=== PATIENT | female | born 1940 | race Caucasian/White ===

== ENCOUNTER 2019-12-06 15:18 | Outpatient (CLI) | payer MEDICARE, SELFPAY ==
--- NOTE | ~2019-12-06 | MM_ITS ---
EXAMINATION: MM screening mammo BI HISTORY: Screening mammogram TECHNIQUE: Craniocaudal and mediolateral oblique images were obtained. CAD analysis was submitted and interpreted. COMPARISON: No prior mammogram is available for comparison at this institution. BREAST PARENCHYMAL COMPOSITION: There are scattered areas of fibroglandular density. FINDINGS: Bilateral breast implants are noted. There is no evidence of suspicious mass, calcification , or architectural distortion to suggest malignancy in either breast. There has been no suspicious in terval change. IMPRESSION: 1. No mammographic evidence of malignancy. 2. Recommend routine screening mammography in one year. BI-RADS Category 1: Negative Reviewed, dictated and finalized at location A.
--- NOTE | ~2019-12-06 | CT_ITS ---
EXAMINATION: CT lung screening EXAM DATE: 12/06/2019 16:30 INDICATION: Z87.891 Personal history of nicotine dependence TECHNIQUE: Spiral low dose CT of the chest without contrast. Axial, coronal and sagittal images were reviewed. The dose-length product (DLP) for this examination was 61.00 mGy-cm. The exposure was ta ilored according to patient size (auto mA exposure control), and iterative reconstruction (ASIR) was used as additional dose reduction technique. Comparison is made to prior examination from 03/25/1979. FINDINGS: There is severe emphysema. Mild bronchiectasis. Severe hyperinflation. Right lower lobe ca lcified granulomas. Small amount of basilar intralobular septal thickening and honeycombing. There is a 3.3 cm abdominal aortic aneurysm. Tracheobronchial tree is patent. There is no mediastinal, hil ar or axillary lymphadenopathy. There are no pleural or pericardial effusions. There is no pneumo thorax. Heart normal in size. There is mild coronary arterial calcification, arterial sclerosis. Upper abdomen is unremarkable. There is moderate thoracic spondylosis without osteoblastic or osteo lytic lesions identified. IMPRESSION: Lung-RADS category 1, negative (<1%chance of malignancy); recommend continued LDCT screen ing in 1 year. > Reviewed, dictated and finalized at location A. IMPRESSION: Lung-RADS category 1, negative (<1%chance of malignancy); recommend continued LDCT screening in 1 year. >
== END 2019-12-06 15:19 | disposition home or self-care (01) ==
PROVIDERS: PCP Internal Medicine; Visit Provider Internal Medicine
DX: Z12.31 Encounter for screening mammogram for malignant neoplasm of breast (principal); Z12.2 Encounter for screening for malignant neoplasm of respiratory organs; Z87.891 Personal history of nicotine dependence
CPT/HCPCS: 77067; G0297

== ENCOUNTER 2019-12-09 12:25 | Outpatient (CLI) | payer MEDICARE, SELFPAY ==
--- NOTE | ~2019-12-09 | XR_ITS ---
EXAMINATION: XR_CERV2-3V_CR EXAM DATE: 12/09/2019 13:07 INDICATION: No known recent injury provided at this time. Pain of the neck. Cervicalgia. TECHNIQUE: Frontal, lateral, swimmers' projections of the cervical spine. There are no prior studies for comparison. There is no prior study for comparison. FINDINGS: There is 3 mm anterolisthesis C3 on C4. There is moderate disc disease C4-5, moderate to se ericka disc disease at C5-6 and probably C6-7. There is at least moderate cervical arthropathy. The odo ntoid process is intact. The lateral masses of C1 line up with C2. Prevertebral soft tissue and pre- dens space are within normal limits. IMPRESSION: Moderate to severe cervical spondylosis. Reviewed, dictated and finalized at location A.
== END 2019-12-09 12:26 | disposition home or self-care (01) ==
PROVIDERS: PCP Internal Medicine; Visit Provider Nurse Practitioner
DX: M54.2 Cervicalgia (principal); M47.812 Spondylosis without myelopathy or radiculopathy, cervical region
CPT/HCPCS: 72040

== ENCOUNTER 2020-04-10 13:29 | Inpatient (IN) | payer MEDICARE, SELFPAY ==
[2020-04-10] VITALS (34 sets, daily range): BP systolic 110–136; BP diastolic 62–98; PULSE 77–108; RESP 16–31; TEMP 36.7–36.8; O2SAT 89–99; BMI 14.6
--- NOTE | ~2020-04-10 | XR_ITS ---
EXAMINATION: XR chest 2V DATE: 04/13/2020 12:37 INDICATION: Pneumonia TECHNIQUE: frontal and lateral views of the chest were obtained. COMPARISON: Chest radiograph dated 04/10/[address] dated 12/06/2019 . FINDINGS: Hyperexpansion of lungs consistent with emphysema better appreciated on prior CT. Small bilateral ple ural effusions. Reticular and airspace opacities in the bilateral lower lung zones, left greater than right. Cluster of calcified nodules in the right lower lung zone consistent with old granulomatous d isease. No pneumothorax. The cardiomediastinal silhouette is within normal limits for AP technique. T horacic kyphosis with severe spondylosis. Chronic T5 compression fracture. A few old left-sided rib f ractures. Peripherally calcified bilateral breast implants. IMPRESSION: 1. Opacities in bilateral lower lung zones which could represent mild pulmonary edema, pneumonia or a telectasis. 2. Small bilateral pleural effusions. Reviewed, dictated and finalized at location A. NICAL BUYER IMPRESSION: 1. Opacities in bilateral lower lung zones which could represent mild pulmonary edema, pneumonia or atelectasis. 2. Small bilateral pleural effusions.
--- NOTE | ~2020-04-10 | XR_ITS ---
EXAMINATION: XR pelvis 1-2V EXAM DATE: 04/10/2020 15:09 INDICATION: Initial encounter following injury, with pain of the pelvis. TECHNIQUE: Pelvis frontal projection(s) obtained and reviewed. Comparison is made to prior examinatio n from 07/19/2017. FINDINGS: There are old left rami fractures. Sacral arcuate lines are poorly visualized due to overl maximino bowel gas. There are no acute pelvic fractures or dislocations identified. There is no subcutan eous gas. The soft tissue is unremarkable. There are no radiopaque foreign bodies. There is moder ate symmetric bilateral hip primary osteoarthritis. Advanced lower lumbar spondylosis. IMPRESSION: 1. Pelvis x-ray exam without acute osseous findings. 2. Moderate symmetric hip osteoarthritis. Reviewed, dictated and finalized at location B. RAL ENGINEERING TEACHER
--- NOTE | ~2020-04-10 | XR_ITS ---
EXAMINATION: XR foot RT min 3V DATE: 04/10/2020 15:10 INDICATION: Right foot injury and pain. TECHNIQUE: 4 views of right foot were obtained. COMPARISON: None. FINDINGS: There is moderate hallux valgus. No acute fracture. Head of second proximal phalanx is defo rmed, which may be from old injury. There is mild osteoarthritis of first metatarsophalangeal joints and many of the interphalangeal joints and talonavicular joint. IMPRESSION: 1. Mild polyarticular osteoarthritis. 2. Moderate hallux valgus. Reviewed, dictated and finalized at location A. N DESIGNER
--- NOTE | ~2020-04-10 | XR_ITS ---
XR chest 1V portable DATE: 04/10/2020 16:12 INDICATION: Cough TECHNIQUE: Portable upright AP view on April 10, 2020 at 1612 hours COMPARISON: 12/06/2019 CT lung screening 01/09/2018 2 view chest FINDINGS: There are increased interstitial IMPRESSION: Reviewed, dictated and finalized at location A. KINDERGARTEN TEACHER IMPRESSION:
--- NOTE | 2020-04-10 14:15 | PC.NURSE ---
patient brought to this ED by EMS. see initial notes.
[2020-04-10 16:22] LABS: Hematocrit 42.5 % (37.0-47.0); Immature Granulocyte Absolute 0.01 K/mm3 (0.00-0.031); Immature Granulocyte Percent A 0.3 % (0-0.5); Immature Platelet Fraction Pct 10.1 % (0.9-11.2); Lymphocytes Absolute Auto 0.47 K/mm3 (0.9-3.2); Lymphocytes Percent Auto 15.1 % (18.3-44.2); Mean Corpuscular HGB Conc 32.9 g/dl (32-36); Mean Corpuscular Hemoglobin 31.3 pg (26-34); Mean Corpuscular Volume 95.1 fl (80-100); Monocytes Absolute Auto 0.3 K/mm3 (0.1-0.6); Neutrophils Absolute Auto 2.4 K/mm3 (1.3-6.7); Neutrophils Percent Auto 75.6 % (45.5-73.1); Platelet Count Result 73 k/mm3 (150-375); Red Blood Count 4.47 M/mm3 (4.2-5.4); Red Cell Distribution Width 13.8 % (11.5-14.5); White Blood Count 3.1 K/mm3 (4.5-10.0)
[2020-04-10] MEDS: SODIUM CHLORIDE 0.9% IV 500 ML 999 ML IV CONT ×2 (16:35→18:01)
[2020-04-10 16:48] LABS: Alveolar/Arterial O2 Gradient 54.7 mmHg; Base Excess ABG 2.4 mEq/l (+/-2.0); Carboxyhemoglobin 1.8 % THb (0-2.0); Device ROOM AIR; Fractional Inspired Oxygen 21 %; HCO3 ABG 25.3 mEq/l (22.0-26.0); Methemoglobin ABG 0.3 %THb (0-1.5); Modified Allen's Test Pass; Oxygen Content ABG 17.4 %vol (16.0-22.0); Oxygen Saturation ABG 90.7 % (95.0-100.0); Oxyhemoglobin 87.5 % THb (90.0-100.0); PCO2 ABG 34.2 mmHg (35.0-45.0); PO2 ABG 54.1 mmHg (80.0-100.0); PO2 FiO2 Ratio Arterial Blood 2.58 %; Reduced Hemoglobin 10.4 %THb (0-5.0); Site Drawn RIGHT RADIAL; Total Hemoglobin 14.2 g/dL (12.0-18.0); pH ABG 7.487 (7.350-7.450)
--- NOTE | 2020-04-10 17:17 | PC.NURSE ---
cathed, 15 fr, kelvin care, 100mL, yellow, cloudy/sed [id number]
[2020-04-10 17:30] LABS: Add Urine Microscopic? YES; Appearance Urine Clear (Clear); Bacteria Urine Trace /hpf; Bilirubin Urine Negative (Negative); Blood Urine 1+ (Negative); Color Urine Yellow (Yellow); Glucose Urine UA Negative (Negative); Ketones Urine Trace mg/dL (Negative); Leukocyte Esterase Ur Trace LEU/UL (Negative); Mucus Urine Moderate /lpf; Nitrate Urine Negative (Negative); Protein Urine 1+ mg/dL (Negative); RBC Urine 21-50 /hpf (0-2); Specific Grav Ur 1.026 (1.001-1.035); Squamous Epithelial Cell Urine Many /hpf (Few); WBC Urine 16-20 /hpf
[2020-04-10 17:31] LABS: Anion Gap 5 mmol/L (8-16); Blood Urea Nitrogen 31 mg/dL (7-17); Calcium 8.3 mg/dL (8.4-10.2); Carbon Dioxide 30 mmol/L (22-30); Chloride 103 mmol/L (98-107); Estimated CRCL calculation 43 ml/min; Estimated Glomerular Filt Rate > 60; Glucose 99 mg/dL (65-105); Lactic Acid Reflex 1.1 mmol/L (0.7-2.1); Potassium 3.6 mmol/L (3.4-5.0); Sodium 138 mmol/L (137-145)
--- NOTE | 2020-04-10 18:13 | ED.GENADULT ---
HPI - General Adult General Chief complaint: Fall Stated complaint: slid out of chair 2 days ago, R side/foot pain Time Seen by Provider: 04/10/20 13:30 Source: patient and family Mode of arrival: ambulatory Limitations: no limitations History of Present Illness HPI narrative: Patient is a 80-year-old female who presents to emergency department for evaluation of having slid out of her recliner patient was brought in by family but they are not present on initial evaluation patient is denying any complaints no that she slid out of her chair but denies any pain patient otherwise in the room in no distress on arrival patient notes possible slight cough denies any vomiting diarrhea chest pain shortness of breath Related Data Allergies Allergy/AdvReac Type Severity Reaction Status Date / Time No Known Allergies Allergy Verified 04/10/20 15:09 Review of Systems Review of Systems: All systems reviewed & are unremarkable except as noted in HPI and below PMFSH Past Medical History Medical History (Updated 04/10/20 @ 18:17 by Lefty Whitmore PA-C) COPD (chronic obstructive pulmonary disease) Neck Pain Sciatica of right side Family History Family History Mother Family history of heart disease in male family member before age 55 Social History Social History Smoking packs per day: 1 Smoking cigarettes per day: 20.0 Years smoked: 59 Smoking pack-years: 59.00 Smoking status: Former smoker (refused CT lung screen at previous visit) Alcohol intake: current Exam Narrative: Exam Narrative: GENERAL: Well-appearing, thin, and in no acute distress. HEAD: Normocephalic, atraumatic. EYES: PERRLA and EOMI. ENT: Nares clear, no rhinorrhea or epistaxis. Mucous membranes moist. NECK: Supple. No adenopathy or masses. No carotid bruits or JVD CHEST: Diminished on auscultation. No respiratory distress. No wheezes rales or rhonchi HEART: Regular rate and rhythm. No murmur heard. Normal peripheral pulses. ABDOMEN: Soft, nontender, nondistended EXTREMITIES: Normal range of motion. No edema. SKIN: Warm, dry, no rash. NEURO: No focal deficits. Alert and oriented x3. Cranial nerves II through XII grossly intact PSYCH: Normal mood and affect. Course Course Emergency Course: Patient evaluated the emergency department patient found to have pneumonia will be tested for Covid given antibiotics to protect against aspiration denying any vomiting but will be brought in due to her hypoxemia. Patient agrees to stay in hospital. Patient hemodynamically stable at this time is requiring oxygen for hypoxemia Consultations Consultation #1: Discussed case with hospitalist who has agreed to accept the patient Date: 04/10/20 Time: 18:15 Vital Signs Vital signs: Vital Signs Temperature 98.3 F 04/10/20 13:50 Pulse Rate 85 04/10/20 13:50 Respiratory Rate 16 04/10/20 13:50 Blood Pressure 114/74 04/10/20 13:50 Pulse Oximetry 98 04/10/20 13:50 Temperature 98.3 F 04/10/20 13:50 Pulse Rate 82 04/10/20 16:01 Respiratory Rate 23 H 04/10/20 16:01 Blood Pressure 123/71 04/10/20 16:01 Pulse Oximetry 90 04/10/20 16:01 Medical Decision Making [facility] Narrative Medical decision making narrative: Patient evaluated in the emergency department found to have hypoxemia and pneumonia will be brought into the hospital for this to the hospitalist service hemodynamically stable at this time requiring oxygen by nasal cannula will also be tested for COVID-19 given the pneumonia seen on chest x-ray Vital Signs Vital Signs: Vital Signs Temperature 98.3 F 04/10/20 13:50 Pulse Rate 85 04/10/20 13:50 Respiratory Rate 16 04/10/20 13:50 Blood Pressure 114/74 04/10/20 13:50 Pulse Oximetry 98 04/10/20 13:50 Temperature 98.3 F 04/10/20 13:50 Pulse Rate 82 04/10/20 16:01 Respiratory Rate 23 H
--- NOTE | 2020-04-10 20:00 | PC.NURSE ---
attempted to call report. staff stated that room is not clean. RN will call me back when the room is ready.
--- NOTE | 2020-04-10 20:30 | PC.NURSE ---
called 3rd floor. on hold for several minutes. no RN to phone for report.
--- NOTE | 2020-04-10 20:38 | PC.NURSE ---
attempted to call report to 3rd floor 3 times. no answer.
--- NOTE | 2020-04-10 20:54 | PC.NURSE ---
report given to RN on 3rd floor. patient transferred to 330 via arch support technician and stretcher.
--- NOTE | 2020-04-10 21:41 | ADMGEN ---
This patient, Maxine Head, was admitted to [facility] Room 330-01. Patient/family oriented to hospital policies and general routines including ID bracelet, bed and alarms, visiting hours, pain management, procedures, bathroom and other care routines, personal items, smoking policy, room service/diet, and visiting hours. Information on how to activate the Rapid Response Team has been discussed. Patient/Family are encouraged to report perceived risks to care and to ask questions if they do not understand what they are told or what they should do.
[2020-04-10] MEDS: LACTATED RINGERS 1,000 ML 75 ML IV CONT (21:47)
[2020-04-11] VITALS (7 sets, daily range): BP systolic 125–147; BP diastolic 61–86; PULSE 61–97; RESP 16–20; TEMP 36.3–36.7; O2SAT 90–94; BMI 14.6
[2020-04-11] MEDS: FAMOTIDINE 20 MG/2 ML VIAL IV PUSH ×2 (00:49→08:43)
[2020-04-11 06:41] LABS: Basophils Percent Auto 0.4 % (0.2-1.2); Eosinophils Percent Auto 0.4 % (0-4.4); Hemoglobin 13.1 g/dL (12.0-15.0); Immature Granulocyte Absolute 0.01 K/mm3 (0.00-0.031); Immature Granulocyte Percent A 0.4 % (0-0.5); Immature Platelet Fraction Pct 8.6 % (0.9-11.2); Lymphocytes Absolute Auto 0.52 K/mm3 (0.9-3.2); Lymphocytes Percent Auto 20.2 % (18.3-44.2); Mean Corpuscular HGB Conc 32.8 g/dl (32-36); Mean Corpuscular Hemoglobin 31.2 pg (26-34); Mean Corpuscular Volume 95.2 fl (80-100); Mean Platelet Volume 10.9 fl (7.4-10.4); Monocytes Absolute Auto 0.3 K/mm3 (0.1-0.6); Monocytes Percent Auto 9.7 % (2.6-8.5); Neutrophils Absolute Auto 1.8 K/mm3 (1.3-6.7); Neutrophils Percent Auto 68.9 % (45.5-73.1); Platelet Count Result 65 k/mm3 (150-375); Red Cell Distribution Width 13.4 % (11.5-14.5); White Blood Count 2.6 K/mm3 (4.5-10.0)
[2020-04-11 06:50] LABS: Anion Gap 4 mmol/L (8-16); Blood Urea Nitrogen 24 mg/dL (7-17); Calcium 7.8 mg/dL (8.4-10.2); Carbon Dioxide 27 mmol/L (22-30); Chloride 106 mmol/L (98-107); Estimated CRCL calculation 41 ml/min; Estimated Glomerular Filt Rate > 60; Glucose 86 mg/dL (65-105); Potassium 3.4 mmol/L (3.4-5.0); Sodium 137 mmol/L (137-145)
--- NOTE | 2020-04-11 09:14 | PM.IMHP ---
H&P: HPI History of Present Illness Date/Time: 04/11/20 09:14 Chief Complaint: Patient slid off the chair. Injury to foot. Narrative: Maxine Head is a 80 year old female with history of COPD was admitted through the emergency room with complaints according to the family patient stated of the chair and injured her foot. However patient denies any fall patient denies any shortness of breath or chest pain patient denies any pain in the foot at present time. After a ER evaluation patient was found to have pneumonia so patient is admitted for further evaluation treatment of pneumonia. Review of Systems Review of Systems: All systems reviewed & are unremarkable except as noted in HPI and below PMFSH Past Medical History Medical History COPD (chronic obstructive pulmonary disease) Neck Pain Sciatica of right side Family History Family History Mother Family history of heart disease in male family member before age 55 Social History Social History Smoking packs per day: 1 Smoking cigarettes per day: 20.0 Years smoked: 59 Smoking pack-years: 59.00 Smoking status: Former smoker Alcohol intake: current Substance use: never Spiritual care concerns: No Meds Home Medications and Allergies Home Medications Medication Instructions Recorded Confirmed Type raloxifene 60 mg tablet 60 mg PO DAILY #90 tablet 04/05/19 04/10/20 Rx losartan 100 mg tablet 100 mg PO DAILY #90 tablet 11/18/19 04/10/20 Rx fluticasone furoate 100 1 inh INHALATION DAILY #28 ea 12/13/19 04/10/20 Rx mcg-vilanterol 25 mcg/dose inhalation powder venlafaxine 150 mg 150 mg PO DAILY #90 cap 01/24/20 04/10/20 Rx capsule,extended release 24 hr naproxen 500 mg PO BID 04/10/20 04/10/20 History pravastatin 40 mg PO DAILY 04/10/20 04/10/20 History Allergies Allergy/AdvReac Type Severity Reaction Status Date / Time No Known Allergies Allergy Verified 04/10/20 19:58 Vital Signs Vital Signs - 24 hr 04/10/20 13:50 04/10/20 14:28 04/10/20 14:30 Temperature 36.8 C Pulse Rate 85 87 83 Respiratory Rate 16 18 23 H Blood Pressure 114/74 Pulse Oximetry 98 04/10/20 14:45 04/10/20 15:08 04/10/20 15:15 Temperature Pulse Rate 85 80 81 Respiratory Rate 28 H 24 H Blood Pressure Pulse Oximetry 95 04/10/20 15:30 04/10/20 15:43 04/10/20 15:45 Temperature Pulse Rate 82 84 82 Respiratory Rate 21 H 25 H 21 H Blood Pressure 131/73 Pulse Oximetry 94 92 89 L 04/10/20 15:47 04/10/20 16:00 04/10/20 16:01 Temperature Pulse Rate 84 82 82 Respiratory Rate 23 H 24 H 23 H Blood Pressure 110/65 123/71 Pulse Oximetry 93 93 90 04/10/20 16:02 04/10/20 16:15 04/10/20 16:16 Temperature Pulse Rate 82 82 81 Respiratory Rate 26 H 19 22 H Blood Pressure 119/72 Pulse Oximetry 94 92 04/10/20 16:32 04/10/20 16:45 04/10/20 16:46 Temperature Pulse Rate 85 85 84 Respiratory Rate 17 20 24 H Blood Pressure 125/75 Pulse Oximetry 04/10/20 17:23 04/10/20 17:30 04/10/20 17:32 Temperature Pulse Rate 81 79 77 Respiratory Rate 17 25 H 20 Blood Pressure 114/65 Pulse Oximetry 04/10/20 17:45 04/10/20 18:00 04/10/20 18:01 Temperature Pulse Rate 79 80 84 Respiratory Rate 20 26 H 23 H Blood Pressure 116/74 Pulse Oximetry 97 99 04/10/20 18:55 04/10/20 19:00 04/10/20 19:01 Temperature Pulse Rate 94 97 98 Respiratory Rate 27 H 23 H 27 H Blood Pressure 136/94 H Pulse Oximetry 97 95 04/10/20 19:15 04/10/20 19:16 04/10/20 19:17 Temperature Pulse Rate 85 82 79 Respiratory Rate 23 H 25 H 31 H Blood Pressure 118/98 H Pulse Oximetry 04/10/20 20:03 04/10/20 20:15 04/10/20 20:16 Temperature Pulse Rate 102 H 108 H 101 H Respiratory Rate 27 H 25 H 25 H Blood Pressure 122/69 Pulse Oximetry 97
[2020-04-11] MEDS: levoFLOXacin 500 MG/D5W 100 ML 500 MG/100 ML BAG 100 MG IVPB (10:36)
[2020-04-11] MEDS: PRAVASTATIN SODIUM 20 MG TABLET 40 MG PO (10:39)
[2020-04-11] MEDS: LOSARTAN POTASSIUM 100 MG TABLET PO (10:39)
[2020-04-11] MEDS: VENLAFAXINE HCL XR 75 MG CAP.ER.24H 150 MG PO (10:40)
[2020-04-11] MEDS: RALOXIFENE HCL (*CHEMO) 60 MG TABLET PO (10:40)
--- NOTE | 2020-04-11 12:47 | PC.NURSE ---
0600 Zosyn not scanned, but infused. IV bag was empty hanging in patient's room.
[2020-04-11 14:41] LABS: SARS-CoV-2 RNA PCR Negative
[2020-04-11] MEDS: LACTATED RINGERS 1,000 ML 75 ML IV CONT (15:40)
[2020-04-12] VITALS (7 sets, daily range): BP systolic 131–148; BP diastolic 75–83; PULSE 80–86; RESP 16–20; TEMP 37–37.7; O2SAT 92–95
[2020-04-12] MEDS: LACTATED RINGERS 1,000 ML 75 ML IV CONT ×2 (06:25→22:45)
[2020-04-12 06:49] LABS: Hematocrit 35.3 % (37.0-47.0); Hemoglobin 11.7 g/dL (12.0-15.0); Immature Platelet Fraction Pct 8.7 % (0.9-11.2); Mean Corpuscular HGB Conc 33.1 g/dl (32-36); Mean Corpuscular Hemoglobin 30.5 pg (26-34); Mean Corpuscular Volume 92.2 fl (80-100); Mean Platelet Volume 11.8 fl (7.4-10.4); Platelet Count Result 62 k/mm3 (150-375); Red Blood Count 3.83 M/mm3 (4.2-5.4); Red Cell Distribution Width 13.2 % (11.5-14.5); White Blood Count 2.8 K/mm3 (4.5-10.0)
[2020-04-12] MEDS: levoFLOXacin 250 MG/D5W 50 ML 250 MG/50 ML BAG 50 MG IVPB (08:29)
[2020-04-12] MEDS: PRAVASTATIN SODIUM 20 MG TABLET 40 MG PO (08:34)
[2020-04-12] MEDS: VENLAFAXINE HCL XR 75 MG CAP.ER.24H 150 MG PO (08:35)
[2020-04-12] MEDS: RALOXIFENE HCL (*CHEMO) 60 MG TABLET PO (08:35)
[2020-04-12] MEDS: LOSARTAN POTASSIUM 100 MG TABLET PO (08:35)
--- NOTE | 2020-04-12 13:13 | PM.IMPN ---
Progress Note: A&P Assessment and Plan (1) Pneumonia: Code(s): J18.9 - Pneumonia, unspecified organism Status: Acute Assessment and Plan: Culture and IV antibiotics. Repeat chest x-ray in the morning (2) Hypoxemia: Code(s): R09.02 - Hypoxemia Status: Acute Assessment and Plan: Oxygen and monitor closely (3) Benign essential hypertension: Code(s): I10 - Essential (primary) hypertension Status: Acute Assessment and Plan: Stable on medications (4) Chronic obstructive pulmonary disease, unspecified: Code(s): J44.9 - Chronic obstructive pulmonary disease, unspecified Status: Acute Assessment and Plan: Will continue with oxygen (5) Thrombocytopenia: Code(s): D69.6 - Thrombocytopenia, unspecified Status: Acute Assessment and Plan: No bruising monitor closely Additional Plan Will admit patient to the hospital. Will do blood culture urine culture chest x-ray. Will start IV antibiotic. Will monitor platelet count closely. Will use SCD boots for DVT prophylaxis. Patient is full code at present time. Further evaluation and treatment of patient will be done according to the lab data available and recommendation by the specialist if needed. Subjective Date/time seen: 04/12/20 13:13 Interval history: Patient was seen during the morning rounds today. More alert, decreased shortness of breath. No chest pain. No abdominal pain or nausea. Mood stable. Review of Systems Review of Systems: All systems reviewed & are unremarkable except as noted in HPI and below Exam Narrative: Exam Narrative: GENERAL: Well-appearing, thin, and in no acute distress. HEAD: Normocephalic, atraumatic. EYES: PERRLA and EOMI. ENT: Nares clear, no rhinorrhea or epistaxis. Mucous membranes moist. NECK: Supple. No adenopathy or masses. No carotid bruits or JVD CHEST: Diminished on auscultation. No respiratory distress. No wheezes rales or rhonchi HEART: Regular rate and rhythm. No murmur heard. Normal peripheral pulses. ABDOMEN: Soft, nontender, nondistended EXTREMITIES: Normal range of motion. No edema. SKIN: Warm, dry, no rash. NEURO: No focal deficits. Alert and oriented x3. Cranial nerves II through XII grossly intact PSYCH: Normal mood and affect. Const: General: cooperative and no acute distress Orientation/consciousness: oriented to person, oriented to place, oriented to time and patient oriented x3 HENMT: Head: normal to inspection Ears: hearing grossly normal bilaterally and external ears normal General nose exam: Normal external nose present Face and sinus: normal facial exam Mouth: Yes Normal oral and palatal mucosa present Eyes: General: appearance normal, both eyes and all related structures Neck: Neck: normal visual inspection and full ROM Chest: Chest palpation & inspection: normal inspection of the chest and normal palpation of entire chest wall Resp: Effort & Inspection: normal respiratory effort Auscultation: clear to auscultation bilaterally Cardio: Jugular venous distension: no JVD Palpation: normal PMI Rate: regular rate Heart sounds: S1 normal heart sound present and S2 normal heart sound present GI: Inspection: normal to inspection Neuro: General: oriented to person, oriented to place, oriented to time and patient oriented x3 Cranial nerves: Yes CN's II-XII intact bilaterally Speech: normal speech Gait exam (Neuro): Normal gait present Motor exam (neuro): 5/5 motor strength present throughout Sensory Exam: normal sensation Psych: Appearance: grossly normal Objective Data Vital Signs Vital Signs: Vital Signs - 24 hr 04/11/20 21:43 04/11/20 22:10 04/12/20 04:40 Temperature 36.6 C 37.0 C Pulse Rate 65 66 80 Respiratory Rate 20 16 Blood Pressure 147/83 H 131/83 Pulse Oximetry 90 94 92 04/12/20 08:30 04/12/20 08:33 Temperature Pulse Rate 86 Respiratory Rate 16 Blood Pressure 146/83 H Pul
[2020-04-12 20:43] LABS: SARS-CoV-2 RNA PCR Negative
[2020-04-13 06:00] VITALS: BP 156/65; PULSE 84; RESP 20; TEMP 36.7; O2SAT 91
[2020-04-13 08:00] VITALS: O2SAT 95
[2020-04-13 08:10] VITALS: O2SAT 95
[2020-04-13] MEDS: RALOXIFENE HCL (*CHEMO) 60 MG TABLET PO (08:36)
[2020-04-13] MEDS: VENLAFAXINE HCL XR 75 MG CAP.ER.24H 150 MG PO (08:36)
[2020-04-13] MEDS: levoFLOXacin 250 MG/D5W 50 ML 250 MG/50 ML BAG 50 MG IVPB (08:36)
[2020-04-13] MEDS: PRAVASTATIN SODIUM 20 MG TABLET 40 MG PO (08:36)
[2020-04-13] MEDS: LOSARTAN POTASSIUM 100 MG TABLET PO (08:36)
--- NOTE | 2020-04-13 11:44 | PCNFU ---
Nutrition Follow-Up Complete: Underweight as related to COPD as evidenced by BMI: 14.6 Goal: Adequate Intake of at least 75% of meals/supplements Limited progress towards goal. We will continue current goal. Pt current nutrition is Heart Healthy/soft/bite sized, Level 6. Last recorded weight is 39.7 kg, no new weight to report. Bowel Motility:+BM reported 04/11 Labs Reviewed: 04/12: BUN 24,Cr 0.6 Meds Noted:Evista,Cozaar,Zosyn,Levaquin, Symbicort. Additional Notes: Nutrition follow up. Spoke with MANAGEMENT CONSULTANT today, patient had been spitting food out today for breakfast. Oral Intake: 0-25% of meals since admit. Patient is also receiving Ensure compact BID which are providing an additional 220 kcals and 9 gms protein. PO intake is encouraged. Monitoring: RD will continue to monitor every 3 days.
[2020-04-13] MEDS: LACTATED RINGERS 1,000 ML 75 ML IV CONT (12:10)
[2020-04-13 14:00] VITALS: BP 104/65; PULSE 75; RESP 16; TEMP 36.7; O2SAT 95
--- NOTE | 2020-04-13 15:07 | PCOTNOTE ---
Attempted to see patient this pm, however patient declined due to pain in neck. Pt unable to describe or rate pain. RN notified.
--- NOTE | 2020-04-13 15:20 | PM.IMPN ---
Progress Note: A&P Assessment and Plan (1) Pneumonia: Code(s): J18.9 - Pneumonia, unspecified organism Status: Acute Assessment and Plan: Culture negative. Will switch to p.o. antibiotics. (2) Hypoxemia: Code(s): R09.02 - Hypoxemia Status: Acute Assessment and Plan: Oxygen and monitor closely (3) Benign essential hypertension: Code(s): I10 - Essential (primary) hypertension Status: Acute Assessment and Plan: Stable on medications (4) Chronic obstructive pulmonary disease, unspecified: Code(s): J44.9 - Chronic obstructive pulmonary disease, unspecified Status: Acute Assessment and Plan: Will continue with oxygen (5) Thrombocytopenia: Code(s): D69.6 - Thrombocytopenia, unspecified Status: Acute Assessment and Plan: No bruising monitor closely Additional Plan Family meeting held today. Case was discussed in detail. Agreed for [place] [facility]. Possible discharge in the morning.. Subjective Date/time seen: 04/13/20 15:20 Interval history: Patient was seen during the rounds today. More alert, decreased shortness of breath. No chest pain. No abdominal pain or nausea. Mood stable. Review of Systems Review of Systems: All systems reviewed & are unremarkable except as noted in HPI and below Exam Narrative: Exam Narrative: GENERAL: Well-appearing, thin, and in no acute distress. HEAD: Normocephalic, atraumatic. EYES: PERRLA and EOMI. ENT: Nares clear, no rhinorrhea or epistaxis. Mucous membranes moist. NECK: Supple. No adenopathy or masses. No carotid bruits or JVD CHEST: Diminished on auscultation. No respiratory distress. No wheezes rales or rhonchi HEART: Regular rate and rhythm. No murmur heard. Normal peripheral pulses. ABDOMEN: Soft, nontender, nondistended EXTREMITIES: Normal range of motion. No edema. SKIN: Warm, dry, no rash. NEURO: No focal deficits. Alert and oriented x3. Cranial nerves II through XII grossly intact PSYCH: Normal mood and affect. Const: General: cooperative and no acute distress Orientation/consciousness: oriented to person, oriented to place, oriented to time and patient oriented x3 HENMT: Head: normal to inspection Ears: hearing grossly normal bilaterally and external ears normal General nose exam: Normal external nose present Face and sinus: normal facial exam Mouth: Yes Normal oral and palatal mucosa present Eyes: General: appearance normal, both eyes and all related structures Neck: Neck: normal visual inspection and full ROM Chest: Chest palpation & inspection: normal inspection of the chest and normal palpation of entire chest wall Resp: Effort & Inspection: normal respiratory effort Auscultation: clear to auscultation bilaterally Cardio: Jugular venous distension: no JVD Palpation: normal PMI Rate: regular rate Heart sounds: S1 normal heart sound present and S2 normal heart sound present GI: Inspection: normal to inspection Neuro: General: oriented to person, oriented to place, oriented to time and patient oriented x3 Cranial nerves: Yes CN's II-XII intact bilaterally Speech: normal speech Gait exam (Neuro): Normal gait present Motor exam (neuro): 5/5 motor strength present throughout Sensory Exam: normal sensation Psych: Appearance: grossly normal Objective Data Vital Signs Vital Signs: Vital Signs - 24 hr 04/12/20 15:54 04/12/20 20:00 04/12/20 21:46 Temperature 37.7 C H Pulse Rate 85 Respiratory Rate 20 Blood Pressure 131/83 Pulse Oximetry 94 94 92 04/13/20 06:00 04/13/20 08:00 04/13/20 08:10 Temperature 36.7 C Pulse Rate 84 Respiratory Rate 20 Blood Pressure 156/65 H Pulse Oximetry 91 95 95 04/13/20 14:00 Temperature 36.7 C Pulse Rate 75 Respiratory Rate 16 Blood Pressure 104/65 Pulse Oximetry 95 Intake/Output Intake/Output: Intake & Output 04/10/20 04/11/20 04/12/20 04/13/20 23:59 23:59 23:59 2
[2020-04-13] MEDS: ACETAMINOPHEN 325 MG TABLET 650 MG PO (17:08)
[2020-04-13 20:00] VITALS: O2SAT 92
[2020-04-13 21:15] VITALS: BP 109/86; PULSE 81; RESP 18; TEMP 36.6; O2SAT 97
[2020-04-14] MEDS: LACTATED RINGERS 1,000 ML 75 ML IV CONT (04:28)
[2020-04-14 06:00] VITALS: BP 124/73; PULSE 83; RESP 18; TEMP 36.9; O2SAT 99
[2020-04-14] MEDS: LOSARTAN POTASSIUM 100 MG TABLET PO (08:08)
[2020-04-14] MEDS: RALOXIFENE HCL (*CHEMO) 60 MG TABLET PO (08:08)
[2020-04-14] MEDS: PRAVASTATIN SODIUM 20 MG TABLET 40 MG PO (08:09)
[2020-04-14] MEDS: VENLAFAXINE HCL XR 75 MG CAP.ER.24H 150 MG PO (08:09)
[2020-04-14 08:15] VITALS: O2SAT 93
[2020-04-14 09:02] VITALS: O2SAT 95
--- NOTE | 2020-04-14 09:32 | PM.DS ---
DS: Admitting Diagnosis Admitting Diagnosis Admitting Diagnosis: 1. Pneumonia 2. History of hypertension DS: Discharge Diagnosis Discharge Diagnosis (1) Pneumonia: Code(s): J18.9 - Pneumonia, unspecified organism Status: Acute Assessment and Plan: Culture negative. Will switch to p.o. antibiotics. (2) Hypoxemia: Code(s): R09.02 - Hypoxemia Status: Acute Assessment and Plan: Oxygen and monitor closely (3) Benign essential hypertension: Code(s): I10 - Essential (primary) hypertension Status: Acute Assessment and Plan: Stable on medications (4) Chronic obstructive pulmonary disease, unspecified: Code(s): J44.9 - Chronic obstructive pulmonary disease, unspecified Status: Acute Assessment and Plan: Will continue with oxygen (5) Thrombocytopenia: Code(s): D69.6 - Thrombocytopenia, unspecified Status: Acute Assessment and Plan: No bruising monitor closely DS: Summary Hospital Course Reason for hospitalization: 1. Pneumonia Hospital Course: 80 years old female was admitted in the hospital put pneumonia. Chest x-ray shows patient has pneumonia. Patient was given IV antibiotics. Patient oxygenation improved. Blood cultures and urine cultures are negative. Potassium was replaced. Plan to discharge to retirement. Follow-up x-ray chest BMP CBC outpatient next week. Time spent discussing smoking cessation with patient: more than 10 minutes Status at Discharge Cognitive/behavioral status at discharge: Stable Functional status at discharge: uses cane/walker Time Spent with Patient Time attestation: Total time spent providing and/or coordinating discharge services: Time spent: Less than 30 minutes Specific discharge activities: As tolerated Exam Narrative: Exam Narrative: GENERAL: Well-appearing, thin, and in no acute distress. HEAD: Normocephalic, atraumatic. EYES: PERRLA and EOMI. ENT: Nares clear, no rhinorrhea or epistaxis. Mucous membranes moist. NECK: Supple. No adenopathy or masses. No carotid bruits or JVD CHEST: Diminished on auscultation. No respiratory distress. No wheezes rales or rhonchi HEART: Regular rate and rhythm. No murmur heard. Normal peripheral pulses. ABDOMEN: Soft, nontender, nondistended EXTREMITIES: Normal range of motion. No edema. SKIN: Warm, dry, no rash. NEURO: No focal deficits. Alert and oriented x3. Cranial nerves II through XII grossly intact PSYCH: Normal mood and affect. Const: General: cooperative and no acute distress Orientation/consciousness: oriented to person, oriented to place, oriented to time and patient oriented x3 HENMT: Head: normal to inspection Ears: hearing grossly normal bilaterally and external ears normal General nose exam: Normal external nose present Face and sinus: normal facial exam Mouth: Yes Normal oral and palatal mucosa present Eyes: General: appearance normal, both eyes and all related structures Neck: Neck: normal visual inspection and full ROM Chest: Chest palpation & inspection: normal inspection of the chest and normal palpation of entire chest wall Resp: Effort & Inspection: normal respiratory effort Auscultation: clear to auscultation bilaterally Cardio: Jugular venous distension: no JVD Palpation: normal PMI Rate: regular rate Heart sounds: S1 normal heart sound present and S2 normal heart sound present GI: Inspection: normal to inspection Neuro: General: oriented to person, oriented to place, oriented to time and patient oriented x3 Cranial nerves: Yes CN's II-XII intact bilaterally Speech: normal speech Gait exam (Neuro): Normal gait present Motor exam (neuro): 5/5 motor strength present throughout Sensory Exam: normal sensation Psych: Appearance: grossly normal DS: Data Data Completed and Pending Labs on day of discharge: Preliminary micro results at discharge 04/10/20 17:10 Blood Culture - Preliminary Blood 04/10/20
--- NOTE | 2020-04-14 10:11 | PCPTNOTE ---
The patient treatment was not able to be completed this A.M. due to patient out of room for procedure. Will plan to continue treatment per plan of care.
[2020-04-14] MEDS: POTASSIUM CHLORIDE 20 MEQ PACKET (FOR LIQUID) PO (10:29)
== END 2020-04-14 14:00 | DRG 194 ==
LOC: ANHED 18:17 → ANH3MEDSUR 04-12 14:01
PROVIDERS: Emergency Medicine Emergency Medical Services; Admitting Provider Internal Medicine; Emergency Provider Emergency Medicine; PCP Internal Medicine; Visit Provider Internal Medicine
DX: J18.9 Pneumonia, unspecified organism (principal); J44.0 Chronic obstructive pulmonary disease with (acute) lower respiratory infection; R09.02 Hypoxemia; Z20.822 Contact with and (suspected) exposure to COVID-19; D69.6 Thrombocytopenia, unspecified; I10 Essential (primary) hypertension; Z87.891 Personal history of nicotine dependence
CPT/HCPCS: 36415; 36600; 71045; 71046; 72170; 73630; 80048; 81001; 82375; 82805; 83050; 83605; 85025; 85027; 85055; 87040; 87086; 92610; 94640; 96361; 96365; 96366; 96367; 96372; 96375; 97110; 97161; 97165; 97530; 97535; 99285; A9270; C9803; J1956; J2543; J7040; J7120; U0003; U0005

== ENCOUNTER 2020-11-18 14:02 | Inpatient (IN) | payer MEDICARE, SELFPAY ==
--- NOTE | ~2020-11-18 | XR_ITS ---
MODIFIED ESOPHAGRAM HISTORY: Dysphagia. TECHNIQUE: Modified barium esophagram was performed by speech pathologist under radiologist fluorosco pic guidance. This was recorded on tape. The exam was reviewed on 11/19/2020 11:28 CDT. The DAP for this procedure was 2.45 Gycm2. Fluoroscopy time is 4.1 minutes. FINDINGS: Lateral projection of the cervical spine demonstrates normal alignment. There is reduced lingual movement with prolonged mastication. There is reduced pharyngeal squeeze with vallecular and piriform sinus residue. There is laryngeal penetration without aspiration. There is premature spillag e to the piriform cyst.. IMPRESSION: 1: Mild laryngeal penetration without aspiration. 2: Please refer to speech pathologist report for additional detail. Reviewed, dictated and finalized at location A.
--- NOTE | ~2020-11-18 | CT_ITS ---
EXAMINATION: CT brain wo con INDICATION: Confusion COMPARISON: None TECHNIQUE: Standard unenhanced head CT. The dose-length product (DLP) was 605.33 mGy-cm. The mA was a djusted according to patient size. Iterative reconstruction technique was employed. FINDINGS: There is no acute intraparenchymal hemorrhage. No evidence of mass lesion. No evidence of a cute infarction. There is mild periventricular and subcortical hypodensity probably related to small vessel ischemic disease. There is moderate prominence of the sulci and ventricles related to cerebral atrophy. Intracranial calcified cerebral atherosclerosis is noted. There are no extra-axial collecti ons. There is no mass effect or midline shift. Changes in the globes are likely from ocular lens surg krystal. The visualized sinuses and mastoid air cells are well aerated. IMPRESSION: 1. No acute intracranial abnormality. 2. Age related findings. Reviewed, dictated and finalized at location A.
--- NOTE | ~2020-11-18 | CT_ITS ---
EXAMINATION: CT diagnostic chest w con DATE: 11/19/2020 11:34 INDICATION: Right lung masslike opacity seen on chest x-ray TECHNIQUE: Computed tomography (CT) of the chest was performed with 75 cc Omnipaque 350 intravenous c ontrast. The dose-length product was 161.54 mGy-cm. Automated exposure control and iterative reconstr uction technique were employed. COMPARISON: CT dated 12/06/2019 FINDINGS: There are bilateral breast implants partially visualized. Heart size normal. There is media stinal lymphadenopathy. Small right pleural effusion. There is atherosclerosis of the aorta and coron lamar arteries without evidence for aneurysm or dissection. Severe emphysema. There is focal masslike c onsolidation in the right lower lobe with surrounding airspace disease and bronchiectasis. Small hiat al hernia. Severe thoracic spondylosis with accentuated kyphosis. Healed sternal fracture. Multiple h ealed right rib fractures. IMPRESSION: 1. Masslike consolidation right lower lobe with surrounding airspace disease and bronchiectasis, most likely infectious/inflammatory, although neoplasm is not excluded. 2: Mediastinal lymphadenopathy, nonspecific. 3: Emphysema. 3: Small right pleural effusion. Reviewed, dictated and finalized at location A. IMPRESSION: 1. Masslike consolidation right lower lobe with surrounding airspace disease an d bronchiectasis, most likely infectious/inflammatory, although neoplasm is not excluded. 2: Mediastinal lymphadenopathy, nonspecific. 3: Emphysema. 3: Small right pleural effusion.
--- NOTE | ~2020-11-18 | XR_ITS ---
EXAMINATION: XR chest 1V portable INDICATION: Altered mental status TECHNIQUE: Portable AP chest at 1425 hours COMPARISON: 04/13/2020 FINDINGS: There is a masslike opacity right lower lung zone. The left lung is clear. There is no pleu ral effusion or pneumothorax. The cardiomediastinal silhouette is normal bilateral breast implants ar e noted. There is severe thoracic spondylosis. IMPRESSION: 1. Masslike opacity of the right lower lung zone which could be infectious or inflammatory. Recommend followup radiographs in 10-14 days after appropriate therapy to evaluate for improvement/resolution as malignancy could have a similar appearance. Reviewed, dictated and finalized at location A. IMPRESSION: 1. Masslike opacity of the right lower lung zone which could be infectious or i nflammatory. Recommend followup radiographs in 10-14 days after appropriate the rapy to evaluate for improvement/resolution as malignancy could have a similar appearance.
--- NOTE | ~2020-11-18 | US_ITS ---
US abdomen limited INDICATION: Elevated liver function tests. PROCEDURE: Realtime right upper abdominal ultrasound. COMPARISON: No prior studies for comparison. FINDINGS: The pancreas is normal without focal mass or pancreatic ductal dilation. Liver echotexture is normal without focal mass or intrahepatic biliary dilatation. There is normal directional flow i n the portal vein. Gallbladder is contracted. Common bile duct measures 6 mm. No sonographic Lewis's sign. There is a mid abdominal aortic aneurysm measuring 3.2 cm. IMPRESSION: 1: Mid abdominal aortic aneurysm measuring 3.2 cm. Reviewed, dictated and finalized at location A.
[2020-11-18 14:00] VITALS: BP 108/68; PULSE 98; RESP 14; TEMP 36.6; O2SAT 98
--- NOTE | 2020-11-18 14:11 | ECG_ITS ---
Measurements Intervals [place] Rate: 95 P: 116 AL: 118 QRS: 116 QRSD: 97 T: 215 QT: 341 QTc: 429 Interpretive Statements SINUS RHYTHM WITH SHORT AL INTERVAL RIGHT AXIS DEVIATION BORDERLINE ST-T WAVE ABNORMALITY- DIFFUSE LEADS BASELINE ARTIFACT- I, II, III, AVR, AVL, AF, V1-V6 BORDERLINE ECG Electronically Signed On 11-18-2020 14:57:51 CDT by Vick Goldberg D.O.
[2020-11-18 14:50] LABS: Basophils Percent Auto 0.1 % (0.2-1.2); Hematocrit 33.6 % (37.0-47.0); Hemoglobin 10.4 g/dL (12.0-15.0); Immature Granulocyte Absolute 0.17 K/mm3 (0.00-0.031); Lymphocytes Absolute Auto 1.16 K/mm3 (0.9-3.2); Mean Corpuscular Hemoglobin 29.4 pg (26-34); Mean Corpuscular Volume 94.9 fl (80-100); Mean Platelet Volume 9.2 fl (7.4-10.4); Monocytes Absolute Auto 0.6 K/mm3 (0.1-0.6); Monocytes Percent Auto 3.7 % (2.6-8.5); Neutrophils Absolute Auto 14.7 K/mm3 (1.3-6.7); Neutrophils Percent Auto 88.2 % (45.5-73.1); Platelet Count Result 370 k/mm3 (150-375); Red Blood Count 3.54 M/mm3 (4.2-5.4); Red Cell Distribution Width 14.1 % (11.5-14.5); White Blood Count 16.7 K/mm3 (4.5-10.0)
--- NOTE | 2020-11-18 14:57 | ED.AMS ---
HPI - Altered Mental Status General Chief Complaint: Altered Mental Status Stated Complaint: alt loc Time Seen by Provider: 11/18/20 14:17 Source: RN notes reviewed History of Present Illness HPI narrative: Patient presents emergency department from [facility] via EMS for altered mental status. Patient currently resides in [facility] is ANO x1 at baseline. Per the staff the patient has had decreasing level of consciousness and been more confused. Patient does have a history of having a UTI approximately a month ago but never got the antibiotics filled not take antibiotics patient currently sitting in bed able to tell me her name she denies any planes of pain at this time she denies any fevers or chills chest pain shortness of breath abdominal pain Related Data Home Medications Medication Instructions Recorded Confirmed pravastatin 40 mg PO DAILY 04/10/20 04/10/20 Allergies Allergy/AdvReac Type Severity Reaction Status Date / Time No Known Allergies Allergy Verified 04/10/20 19:58 Review of Systems Review of Systems: Gen.: Denies fevers or chills ENT: Denies congestion Respiratory: Denies shortness of breath or cough CV: Denies chest pain or palpitations GI: Denies abdominal pain nausea, emesis or diarrhea Musculoskeletal: Denies back pain or muscle pain Neuro: See HPI Skin: Denies rash Except as documented, all other systems reviewed and negative [facility] Past Medical History Medical History (Updated 11/18/20 @ 17:36 by Ignacio Sam DO) COPD (chronic obstructive pulmonary disease) Dementia Neck Pain Sciatica of right side Family History Family History Mother Family history of heart disease in male family member before age 55 Social History Social History Smoking packs per day: 1 Smoking cigarettes per day: 20.0 Years smoked: 59 Smoking pack-years: 59.00 Smoking status: Former smoker Alcohol intake: current Substance use: never Spiritual care concerns: No Exam Narrative: APPEARANCE: No acute distress, nontoxic, resting in bed EYES: EOMI HEENT: Normocephalic, atraumatic, mucosa dry RESPIRATORY: No respiratory distress Clear to auscultation bilaterally with no rhonchi wheezing or rales. CARDIOVASCULAR: Regular rate and rhythm without murmurs rubs or gallops. ABDOMINAL: Soft, nontender, nondistended, no rebound or guarding MUSCULOSKELETAl: Moves all extremities. No clubbing, cyanosis or edema. NEURO: Awake and alert x 1. Following commands, speech normal, no focal deficits SKIN:: Warm, dry. No rashes lesions or abrasions PSYCHIATRIC: Normal affect/mood, Course Course Emergency Course: Discussed with KYLIE Hurtado for Dr. Alva presentation work-up agrees with admission at this time Discussed with patient and family results of workup and diagnosis. Discussed need for admission. Patient and family understand and agree to current treatment plan Vital Signs Vital signs: Vital Signs Temperature 97.8 F 11/18/20 14:00 Pulse Rate 98 11/18/20 14:00 Respiratory Rate 14 11/18/20 14:00 Blood Pressure 108/68 11/18/20 14:00 Pulse Oximetry 98 11/18/20 14:00 Temperature 97.8 F 11/18/20 14:00 Pulse Rate 98 11/18/20 14:00 Respiratory Rate 14 11/18/20 14:00 Blood Pressure 108/68 11/18/20 14:00 Pulse Oximetry 98 11/18/20 14:00 MDM - Altered Mental Status Lab Data Result diagrams: 11/18/20 14:40 11/18/20 14:40 Labs: Lab Results 11/18/20 11/18/20 11/18/20 Range/Units 14:40 14:40 14:40 WBC 16.7 H (4.5-10.0) K/mm3 RBC 3.54 L (4.2-5.4) M/mm3 Hgb 10.4 L (12.0-15.0) g/dL Hct 33.6 L (37.0-47.0) % MCV 94.9 (80-100) fl MCH 29.4 (26-34) pg MCHC 31.0 L (32-36) g/dl RDW 14.1 (11.5-14.5) % Plt Count 370 D (150-375) k/mm3 MPV 9.2 (7.4-10.4) fl Immature Gran % (Auto) 1.0
[2020-11-18 15:01] LABS: Alanine Aminotransferase 37 U/L (4-35); Alkaline Phosphatase 89 U/L (38-126); Anion Gap 14 mmol/L (8-16); Aspartate Amino Transferase 50 U/L (14-36); Bilirubin,Total 0.4 mg/dL (0.2-1.3); Blood Urea Nitrogen 44 mg/dL (7-17); Calcium 9.1 mg/dL (8.4-10.2); Carbon Dioxide 24 mmol/L (22-30); Chloride 105 mmol/L (98-107); Estimated Glomerular Filt Rate 27; Glucose 145 mg/dL (65-110); Potassium 4.8 mmol/L (3.4-5.0); Sodium 143 mmol/L (137-145)
[2020-11-18 15:03] LABS: Lactic Acid Reflex 2.4 mmol/L (0.7-2.1)
[2020-11-18 15:04] LABS: INR 1.2; Prothrombin Time 15.3 Seconds (11.1-14.7)
[2020-11-18 15:05] LABS: Partial Thromboplastin Time 51.3 SECONDS (22.3-36.8)
[2020-11-18] MEDS: SODIUM CHLORIDE 0.9% IV 1,000 ML 999 ML IV CONT (15:06)
[2020-11-18 15:54] LABS: Add Urine Microscopic? YES; Appearance Urine Clear (Clear); Bilirubin Urine Negative (Negative); Color Urine Yellow (Yellow); Glucose Urine UA Negative (Negative); Ketones Urine Negative (Negative); Leukocyte Esterase Ur Trace LEU/UL (Negative); Nitrate Urine Negative (Negative); Protein Urine 1+ mg/dL (Negative); RBC Urine 0-2 /hpf (0-2); Specific Grav Ur 1.016 (1.001-1.035); Squamous Epithelial Cell Urine Rare /hpf (Few); Urobilinogen Urine Negative mg/dL (<2.0)
[2020-11-18 16:05] LABS: Blood Urine Negative (Negative)
[2020-11-18 17:47] LABS: Reflex Lactic Acid Yes or No Add Lactic
[2020-11-18 18:10] VITALS: BP 124/79; PULSE 81; RESP 18; O2SAT 99
--- NOTE | 2020-11-18 18:31 | PC.NURSE ---
This patient, Maxine Head, was admitted to -. Patient/family oriented to hospital policies and general routines including ID bracelet, bed and alarms, visiting hours, pain management, procedures, bathroom and other care routines, personal items, smoking policy, room service/diet, and visiting hours. Information on how to activate the Rapid Response Team has been discussed. Patient/Family are encouraged to report perceived risks to care and to ask questions if they do not understand what they are told or what they should do.
[2020-11-18 19:00] VITALS: BP 95/62; PULSE 72; RESP 12; TEMP 36.6; O2SAT 91
[2020-11-18 19:27] LABS: Lactic Acid 1.4 mmol/L (0.7-2.1)
--- NOTE | 2020-11-18 19:45 | PM.IMHP ---
H&P: HPI History of Present Illness Date/Time: 11/18/20 19:45 Chief Complaint: Confusion. Narrative: This is a pleasant 80-year-old female with dementia, hypertension, hyperlipidemia, and anxiety who presented to the emergency department earlier today via EMS from [facility] for evaluation of confusion. The patient is able to provide a fair history though some of the following is supplemented via a review of her electronic medical records as well as discussions with her sister Carla who is at bedside, with the patient's permission. Carla typically sees the patient once a week and when she went to visit on the patient was not near as talkative as usual. She went to visit again today at which time she really was not talking at all and Carla was informed that the patient had not been eating or drinking much the last several days. She looks quite dehydrated on exam and by labs and after receiving IV fluids in the ER she has seemed to perk up a little bit. I was asked to admit the patient for presumed pneumonia given right lower lung zone masslike opacity noted on imaging. The patient does endorse that she has been coughing however her sister states that she coughs frequently and that is really unchanged. The patient denies dysphagia and concerns for aspiration though her sister thinks that she seems to cough more when drinking. The patient has not had any sick contacts or COVID exposure. No mention of fever. The patient denies chest pain and abdominal pain. She also denies nausea, vomiting, and diarrhea. She simply states that she is not hungry. Review of Systems Review of Systems: Twelve systems were reviewed. Somewhat limited given her dementia but she does deny headache, sinus congestion, rhinorrhea, otalgia, and odynophagia. She also denies chest pain pleuritic pain. Cough is nonproductive. She denies overt nausea and vomiting. No dysuria. The patient has progressively lost weight over the years, no drastic changes recently. She has no known history of malignancy. Except as documented, all other systems were reviewed and are negative. [facility] Past Medical History Medical History (Updated 11/18/20 @ 21:07 by Genesis El PA-C) Anxiety and depression Benign essential hypertension Chronic obstructive pulmonary disease Dementia Mixed hyperlipidemia Osteoporosis Personal history of nicotine dependence Primary osteoarthritis involving multiple joints Vitamin D deficiency Surgical History Surgical History (Updated 11/18/20 @ 21:02 by Genesis El PA-C) History of bilateral breast implants History of hysterectomy Family History Family History Mother Family history of heart disease in male family member before age 55 Social History Social History (Updated 11/18/20 @ 21:03 by Genesis El PA-C) Social History: Surrogate decision maker: Randy Head, son. Code status: Full code. Smoking packs per day: 1 Smoking cigarettes per day: 20.0 Years smoked: 59 Smoking pack-years: 59.00 Smoking status: Former smoker Alcohol intake: never Substance use: never Additional living arrangements comments: [facility] Additional occupation/education comments: Retired Meds Home Medications and Allergies Home Medications Medication Instructions Recorded Confirmed Type raloxifene 60 mg tablet 60 mg PO DAILY #90 tablet 04/05/19 11/18/20 Rx fluticasone furoate 100 1 inh INHALATION DAILY #28 ea 12/13/19 11/18/20 Rx mcg-vilanterol 25 mcg/dose inhalation powder venlafaxine 150 mg 150 mg PO DAILY #90 cap 01/24/20 11/18/20 Rx capsule,extended release 24 hr pravastatin 40 mg PO HS 04/10/20 11/18/20 History losartan 100 mg PO DAILY #90 tablet 04/14/20 11/18/20 Rx levofloxacin 250 mg tablet 250 mg PO DAILY #7 tablet 11/16/20 11/18/20 Rx potassium chloride 10 meq PO DAILY 11/18/20 11/18/20 History spironolactone 2
[2020-11-18 20:00] VITALS: BMI 19.1
[2020-11-18] MEDS: SODIUM CHLORIDE 0.9% IV 1,000 ML 80 ML IV CONT (20:46)
--- NOTE | 2020-11-18 21:12 | ADMGEN ---
This patient, Maxien Head, was admitted to [facility] Surg Room 325-01. Patient/family oriented to hospital policies and general routines including ID bracelet, bed and alarms, visiting hours, pain management, procedures, bathroom and other care routines, personal items, smoking policy, room service/diet, and visiting hours. Information on how to activate the Rapid Response Team has been discussed. Patient/Family are encouraged to report perceived risks to care and to ask questions if they do not understand what they are told or what they should do.
[2020-11-18 21:58] LABS: Iron 22 ug/dL (37-170)
[2020-11-18 22:00] VITALS: BP 101/48; PULSE 83; RESP 16; TEMP 36.7; O2SAT 93
[2020-11-18 22:05] LABS: CRP 7.3 mg/dL (<1.0); Creatine Kinase 32 U/L (30-135)
[2020-11-18 22:07] LABS: Percent Iron Saturation 15 % (20-50)
[2020-11-18 22:09] LABS: Alanine Aminotransferase 31 U/L (4-35); Albumin Level 2.9 g/dL (3.5-5.1); Alkaline Phosphatase 67 U/L (38-126); Aspartate Amino Transferase 46 U/L (14-36); Bilirubin,Total 0.2 mg/dL (0.2-1.3); Lactate Dehydrogenase 518 U/L (313-618)
[2020-11-18 22:29] LABS: Thyroid Stimulating Hormone Reflex 0.703 uIU/mL (0.465-4.68)
[2020-11-18 22:55] LABS: Procalcitonin 0.3 ng/mL
[2020-11-18 23:15] LABS: Folic Acid 19.7 ng/mL (2.76->20)
[2020-11-19] VITALS (7 sets, daily range): BP systolic 105–110; BP diastolic 56–59; PULSE 74–92; RESP 18–20; TEMP 35.8–37; O2SAT 92–100
[2020-11-19 06:45] LABS: Basophils Percent Auto 0.3 % (0.2-1.2); Eosinophils Percent Auto 0.2 % (0-4.4); Hematocrit 30.8 % (37.0-47.0); Hemoglobin 9.5 g/dL (12.0-15.0); Immature Granulocyte Absolute 0.12 K/mm3 (0.00-0.031); Lymphocytes Absolute Auto 1.01 K/mm3 (0.9-3.2); Lymphocytes Percent Auto 8.7 % (18.3-44.2); Mean Corpuscular HGB Conc 30.8 g/dl (32-36); Mean Corpuscular Hemoglobin 29.1 pg (26-34); Mean Corpuscular Volume 94.5 fl (80-100); Mean Platelet Volume 9.1 fl (7.4-10.4); Monocytes Absolute Auto 0.5 K/mm3 (0.1-0.6); Monocytes Percent Auto 4.1 % (2.6-8.5); Neutrophils Percent Auto 85.7 % (45.5-73.1); Platelet Count Result 265 k/mm3 (150-375); Red Blood Count 3.26 M/mm3 (4.2-5.4); Red Cell Distribution Width 13.7 % (11.5-14.5); White Blood Count 11.7 K/mm3 (4.5-10.0)
[2020-11-19 07:02] LABS: Alanine Aminotransferase 28 U/L (4-35); Alkaline Phosphatase 66 U/L (38-126); Anion Gap 5 mmol/L (8-16); Aspartate Amino Transferase 43 U/L (14-36); Bilirubin,Total < 0.1 mg/dL (0.2-1.3); Blood Urea Nitrogen 28 mg/dL (7-17); Calcium 8.1 mg/dL (8.4-10.2); Carbon Dioxide 26 mmol/L (22-30); Chloride 105 mmol/L (98-107); Estimated Glomerular Filt Rate 43; Glucose 101 mg/dL (65-110); Magnesium 2.2 mg/dL (1.6-2.3); Potassium 4.4 mmol/L (3.4-5.0); Sodium 136 mmol/L (137-145)
[2020-11-19] MEDS: SODIUM CHLORIDE 0.9% IV 1,000 ML 80 ML IV CONT (09:04)
--- NOTE | 2020-11-19 10:38 | PM.IMPN ---
Progress Note: A&P Assessment and Plan (1) Acute kidney injury: Code(s): N17.9 - Acute kidney failure, unspecified Status: Acute Assessment and Plan: The patient presented for evaluation after she has been more confused over the past couple of days with poor oral intake. She was found to be dehydrated with elevated BUN and creatinine consistent with acute kidney injury most likely due to dehydration. Patient's creatinine improved from 1.8-1.2 with IV fluid hydration. Monitoring of volume status. We will avoid nephrotoxic agents and repeat renal function in a.m.. If no improvement with IV fluids alone, a further workup will need to be pursued. (2) Community acquired pneumonia: Code(s): J18.9 - Pneumonia, unspecified organism Status: Acute Assessment and Plan: Patient was found to have right lower lobe pneumonia on arrival. She was started on IV azithromycin and Rocephin. CT chest was ordered which showed infection versus inflammation verses underlying cancer to right lower lobe. Continue IV antibiotics in light IV fluid at this time. (3) Abnormal urinalysis: Code(s): R82.90 - Unspecified abnormal findings in urine Status: Acute Assessment and Plan: Urinalysis seems slightly abnormal with trace leukocyte esterase and white blood cells 7-9. Less likely UTI and most likely pneumonia causing confusion. (4) Dehydration: Code(s): E86.0 - Dehydration Status: Acute Assessment and Plan: IV fluids have improved her dehydration status as well as treatment of underlying infection (5) Elevated LFTs: Code(s): R79.89 - Other specified abnormal findings of blood chemistry Status: Acute Assessment and Plan: Liver ultrasound to be ordered for further evaluation of elevated LFT. Denies any abdominal pain on my examination. (6) Normocytic anemia: Code(s): D64.9 - Anemia, unspecified Status: Acute Assessment and Plan: Patient had normocytic anemia with a hemoglobin of 9.5, hematocrit 30%. Iron studies showed iron deficiency anemia with a% saturation of 15%. Normal vitamin B12 and folic acid levels. Normal TSH. No signs of acute bleeding at this time. Transfuse as needed. Recheck labs in the morning. (7) Benign essential hypertension: Code(s): I10 - Essential (primary) hypertension Status: Acute Assessment and Plan: Blood pressure has been low normal at 105/56 this morning. Continue light IV fluid hydration at this time. (8) Dementia: Code(s): F03.90 - Unspecified dementia without behavioral disturbance Status: Acute Assessment and Plan: Continue home medications. (9) Mixed hyperlipidemia: Code(s): E78.2 - Mixed hyperlipidemia Status: Acute Assessment and Plan: Continue home medications. (10) Anxiety and depression: Code(s): F41.9 - Anxiety disorder, unspecified; F32.9 - Major depressive disorder, single episode, unspecified Status: Acute Assessment and Plan: Continue home medications . (11) Chronic obstructive pulmonary disease, unspecified: Code(s): J44.9 - Chronic obstructive pulmonary disease, unspecified Status: Acute Assessment and Plan: Resting comfortably on room air at this time. Continue home medications. Time Spent With Patient Time with patient: 25 - 35 minutes Subjective Date/time seen: 11/19/20 10:
--- NOTE | 2020-11-19 12:32 | PCSTNOTE ---
Please refer to the Modified Barium Swallow Evaluation in the EMR.
[2020-11-19] MEDS: VENLAFAXINE HCL XR 75 MG CAP.ER.24H 150 MG PO (12:44)
[2020-11-20 06:00] VITALS: BP 119/58; PULSE 82; RESP 18; TEMP 36.4; O2SAT 98
[2020-11-20 06:46] LABS: Basophils Percent Auto 0.2 % (0.2-1.2); Eosinophils Percent Auto 0.2 % (0-4.4); Hematocrit 29.2 % (37.0-47.0); Hemoglobin 9.3 g/dL (12.0-15.0); Immature Granulocyte Absolute 0.12 K/mm3 (0.00-0.031); Immature Granulocyte Percent A 1.2 % (0-0.5); Lymphocytes Absolute Auto 1.05 K/mm3 (0.9-3.2); Lymphocytes Percent Auto 10.4 % (18.3-44.2); Mean Corpuscular HGB Conc 31.8 g/dl (32-36); Mean Corpuscular Hemoglobin 29.2 pg (26-34); Mean Corpuscular Volume 91.8 fl (80-100); Monocytes Absolute Auto 0.5 K/mm3 (0.1-0.6); Monocytes Percent Auto 4.5 % (2.6-8.5); Neutrophils Absolute Auto 8.5 K/mm3 (1.3-6.7); Neutrophils Percent Auto 83.5 % (45.5-73.1); Platelet Count Result 267 k/mm3 (150-375); Red Blood Count 3.18 M/mm3 (4.2-5.4); Red Cell Distribution Width 13.2 % (11.5-14.5); White Blood Count 10.1 K/mm3 (4.5-10.0)
[2020-11-20 07:02] LABS: Alanine Aminotransferase 22 U/L (4-35); Albumin Level 2.9 g/dL (3.5-5.1); Alkaline Phosphatase 60 U/L (38-126); Anion Gap 6 mmol/L (8-16); Aspartate Amino Transferase 30 U/L (14-36); Bilirubin,Total 0.2 mg/dL (0.2-1.3); Blood Urea Nitrogen 18 mg/dL (7-17); CRP 8.2 mg/dL (<1.0); Calcium 8.1 mg/dL (8.4-10.2); Carbon Dioxide 26 mmol/L (22-30); Chloride 102 mmol/L (98-107); Estimated Glomerular Filt Rate > 60; Glucose 87 mg/dL (65-110); Potassium 3.8 mmol/L (3.4-5.0); Sodium 134 mmol/L (137-145)
[2020-11-20] MEDS: VENLAFAXINE HCL XR 75 MG CAP.ER.24H 150 MG PO (10:07)
[2020-11-20 12:00] VITALS: BP 109/65; BP 116/68; BP 88/58
[2020-11-20] MEDS: CEFDINIR 300 MG CAPSULE PO (13:02)
[2020-11-20] MEDS: SACCHAROMYCES BOULARDII 250 MG CAPSULE PO ×2 (13:02→17:08)
[2020-11-20] MEDS: AZITHROMYCIN 250 MG TABLET PO (13:02)
[2020-11-20 14:00] VITALS: BP 104/54; PULSE 86; RESP 16; TEMP 37; O2SAT 93
[2020-11-20 16:20] VITALS: BP 104/56; BP 109/61; BP 126/75
--- NOTE | 2020-11-20 16:26 | PM.DS ---
DS: Admitting Diagnosis Discharge Date 11/20/20 Admitting Diagnosis AMS DS: Discharge Diagnosis Discharge Diagnosis (1) Acute kidney injury: Code(s): N17.9 - Acute kidney failure, unspecified Status: Acute Assessment and Plan: The patient is a 80-year-old woman with a history of dementia, hypertension, dyslipidemia, who presented to the emergency room from [email or web address] for increased confused over the past couple of days with poor oral intake. Initial vitals showed blood pressure slightly low at 100 8/68, non tachycardic, afebrile, normal oxygenation on room air. Initial labs showed leukocytosis at 16,700, normocytic anemia with a hemoglobin of 10, hematocrit 33%, elevated neutrophils 88%, elevated creatinine at 1.8, BUN 44 showing dehydration. Lactic acid elevated at 2.4. With IV fluid hydration and improved down to normal. LFTs were slightly elevated on arrival but normalized with IV fluid hydration. Urinalysis did not show any signs of an infection. Chest CT showed masslike consolidation right lower lobe with surrounding airspace disease and bronchiectasis, most likely infectious versus inflammatory, although neoplasm is not excluded. She was found to be dehydrated with elevated BUN and creatinine consistent with acute kidney injury most likely due to dehydration along with pneumonia. She was started on IV fluid hydration and IV antibiotics for community-acquired pneumonia. Today her blood pressures are stable, renal function is back down to normal, mental status seems to be at her baseline. She is stable for discharge back to her [facility] facility to continue oral antibiotics and probiotics to prevent diarrhea associated with antibiotic use. She did have orthostatics checked which showed she dropped when standing to 88/58. We place Earl hose on her and her blood pressures went and was negative for orthostatic hypotension. Will hold her blood pressure medications at this time and have them recheck her blood pressure twice daily and restart as needed. Will have him apply Earl hose daily while she is awake. Recheck labs in 1 week. Have her follow-up with her primary care provider within 1 week. Return to ER warnings given. The patient understands agrees the plan all questions answered. I have tried to reach out to her son about the above findings and discharge plan but he did not call me back. Patient is in stable condition and stable for discharge. 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 This is an incidental finding and will need to be followed up by her primary care provider for further evaluation and monitoring in 6 months. They did a modified barium swallow concern with possible aspiration due to dementia and altered mental status. During her modified barium swallow she just needed to be prompted multiple times for swallowing. Otherwise she did not show any signs of aspiration recommended a soft and bite size diet and thin liquids. The patient will need repeat CT of her chest in 6 weeks for further workup on the masslike consolidation after the acute treatment of pneumonia is completed. (2) Community acquired pneumonia: Code(s): J18.9 - Pneumonia, unspecified organism Status: Acute Assessment and Plan: (3) Abnormal urinalysis: Code(s): R82.90 - Unspecified abnormal findings in urine Status: Acute Assessment and Plan: Urinalysis seems slightly abnormal with trace leukocyte esterase and white blood cells 7-9. Urine culture shows no growth. Blood cultures negative today. (4) Dehydration: Code(s): E86.0 - Dehydration Status: Acute Assessment and Plan: (5) Elevated
== END 2020-11-20 19:55 | DRG 194 ==
LOC: ANHED 17:36 → ANH3MEDSUR 18:55
PROVIDERS: Physician Assistant; Admitting Provider Family Medicine; Emergency Provider Emergency Medicine; PCP Internal Medicine; Visit Provider Family Medicine
DX: J18.9 Pneumonia, unspecified organism (principal); N17.9 Acute kidney failure, unspecified; E86.0 Dehydration; I71.4 Abdominal aortic aneurysm, without rupture; R82.90 Unspecified abnormal findings in urine; I10 Essential (primary) hypertension; F03.90 Unspecified dementia, unspecified severity, without behavioral disturbance, psychotic disturbance, mood disturbance, and anxiety; E78.5 Hyperlipidemia, unspecified; D50.9 Iron deficiency anemia, unspecified; R79.89 Other specified abnormal findings of blood chemistry; F41.9 Anxiety disorder, unspecified; F32.9 Major depressive disorder, single episode, unspecified; J44.9 Chronic obstructive pulmonary disease, unspecified; M81.0 Age-related osteoporosis without current pathological fracture; M19.90 Unspecified osteoarthritis, unspecified site; E55.9 Vitamin D deficiency, unspecified; Z90.710 Acquired absence of both cervix and uterus; Z87.891 Personal history of nicotine dependence
CPT/HCPCS: 36415; 51701; 70450; 71045; 71260; 76705; 80053; 80076; 81001; 82550; 82607; 82728; 82746; 83540; 83550; 83605; 83615; 83735; 84145; 84443; 85025; 85610; 85730; 86140; 87040; 87086; 92611; 93005; 94640; 96361; 96365; 96366; 96367; 97165; 99285; A9270; G0378; J0456; J0696; J7030; Q9967

== ENCOUNTER 2021-02-01 19:35 | Emergency (ER) | payer MEDICARE, SELFPAY ==
--- NOTE | ~2021-02-01 | XR_ITS ---
XR tibia fibula RT 2V 02/01/2021 20:35 INDICATION: Laceration to the leg. PROCEDURE: 2 views right tibia/fibula. COMPARISON: No prior studies for comparison. FINDINGS: Fracture, dislocation or subluxation is not identified. The soft tissues appear within norm al limits. No foreign bodies are identified. IMPRESSION: 1: NO ACUTE BONE OR JOINT ABNORMALITY IDENTIFIED. Reviewed, dictated and finalized at location A. ORMANCE TEST CONSULTANT
[2021-02-01 19:40] VITALS: BP 145/75; PULSE 90; RESP 18; TEMP 36.1; O2SAT 96
--- NOTE | 2021-02-01 19:55 | ED.WOUNDLAC ---
HPI - Wound/Laceration General Chief Complaint: Wound/Laceration Stated Complaint: rt leg wound with 5 inch lac and deep Time Seen by Provider: 02/01/21 19:55 Source: patient and EMS Mode of arrival: EMS Limitations: dementia History of Present Illness HPI narrative: Patient is a 80-year-old female with a history of hypertension, hyperlipidemia, anxiety, depression, COPD, presenting for evaluation of laceration to right lower extremity. Patient reportedly had a wound on her right lower leg, when she bumped it against a table, causing the wound to open tonight. Pt did not fall per snf. Patient is not able to endorse if there was any recent fall or injury, states that she does not remember and the history is significantly limited secondary to her dementia. She is alert and oriented to person, not to place or time, is her baseline based on her chart review. She denies any arm pain, wrist pain, elbow pain. Denies hip pain. Patient reports mild, aching, throbbing pain at the site. She denies ankle or knee pain. She denies headache, chest pain, shortness of breath. Related Data Home Medications Medication Instructions Recorded Confirmed pravastatin 40 mg PO HS 04/10/20 11/18/20 potassium chloride 10 meq PO DAILY 11/18/20 11/18/20 spironolactone 25 mg PO DAILY 11/18/20 11/18/20 Allergies Allergy/AdvReac Type Severity Reaction Status Date / Time No Known Allergies Allergy Verified 04/10/20 19:58 Review of Systems Review of Systems: ROS unobtainable: Yes unobtainable due to medical condition PMFSH Past Medical History Medical History Anxiety and depression Benign essential hypertension Chronic obstructive pulmonary disease Dementia Mixed hyperlipidemia Osteoporosis Personal history of nicotine dependence Primary osteoarthritis involving multiple joints Vitamin D deficiency Surgical History Surgical History History of bilateral breast implants History of hysterectomy Family History Family History Mother Family history of heart disease in male family member before age 55 Social History Social History Social History: Surrogate decision maker: Randy Sonido, son. Code status: Full code. Smoking packs per day: 1 Smoking cigarettes per day: 20.0 Years smoked: 59 Smoking pack-years: 59.00 Smoking status: Former smoker Tobacco type: cigarettes Alcohol intake: never Substance use: never Additional living arrangements comments: [facility] Additional occupation/education comments: Retired Exam Narrative: GENERAL: Awake, alert, conversant HEAD: Normocephalic, atraumatic. EYES: PERRLA and EOMI. ENT: Nares clear, no rhinorrhea or epistaxis. Mucous membranes moist. NECK: Supple. CHEST: No respiratory distress, breathing even and non labored HEART: Regular rate, sinus rhythm ABDOMEN:Non distended, non tender EXTREMITIES: Normal range of motion. No edema. 5 cm full-thickness laceration to the right anterior lower extremity, muscle tissue is present, no active bleeding. No pulsatile bleeding. Intact distal sensation. Full range of motion of the right ankle, right knee without limitation or pain. SKIN: Warm, dry, no rash. NEURO:No focal deficits. Alert and oriented x3 Course Vital Signs Vital signs: Vital Signs Temperature 36.1 C L 02/01/21 19:40 Pulse Rate 90 02/01/21 19:40 Respiratory Rate 18 02/01/21 19:40 Blood Pressure 145/75 H 02/01/21 19:40 Pulse Oximetry 96 02/01/21 19:40 Temperature 36.1 C L 02/01/21 19:40 Pulse Rate 90 02/01/21 19:40 Respiratory Rate 18 02/01/21 19:40 Blood Pressure 145/75 H 02/01/21 19:40 Pulse Oximetry 96 02/01/21 19:40 Procedures Laceration Laceration 1: Date: 02/01/21
[2021-02-01] MEDS: TETANUS,DIPHTHERIA,AC PERTUSSIS ADULT (0.5 ML) BOOSTRIX IM (21:00)
--- NOTE | 2021-02-01 21:50 | PC.NURSE ---
Pt refusing ambulanceCarla (emergency contact) called. Will transport pt home.
[2021-02-01 22:05] VITALS: BP 120/63; PULSE 91; RESP 16; O2SAT 97
== END 2021-02-01 22:22 ==
PROVIDERS: Emergency Provider Emergency Medicine; PCP Internal Medicine
DX: S81.811A Laceration without foreign body, right lower leg, initial encounter (principal); I10 Essential (primary) hypertension; J44.9 Chronic obstructive pulmonary disease, unspecified; E78.2 Mixed hyperlipidemia; F03.90 Unspecified dementia, unspecified severity, without behavioral disturbance, psychotic disturbance, mood disturbance, and anxiety; Z87.891 Personal history of nicotine dependence; Z23 Encounter for immunization; W45.8XXA Other foreign body or object entering through skin, initial encounter
CPT/HCPCS: 12002; 73590; 90471; 90715; 99283

== ENCOUNTER 2021-04-12 22:58 | Emergency (ER) | payer MEDICARE, SELFPAY ==
--- NOTE | ~2021-04-12 | XR_ITS ---
EXAMINATION: XR knee RT 3V DATE: 04/13/2021 05:50 INDICATION: Right knee pain. TECHNIQUE: 3 views of right knee were obtained. COMPARISON: Right tibia and fibula radiographs 02/01/2021 FINDINGS: Bone alignment is normal. No fracture. There is mild tricompartmental osteoarthritis charac terized by tiny osteophytes. No joint space narrowing. No knee joint effusion. IMPRESSION: 1. Mild right knee osteoarthritis. Reviewed, dictated and finalized at location A. RESTAURANT
--- NOTE | ~2021-04-12 | XR_ITS ---
EXAMINATION: XR knee LT 3V DATE: 04/13/2021 05:50 INDICATION: Left knee pain. TECHNIQUE: 3 views of left knee were obtained. COMPARISON: None. FINDINGS: Bone alignment is normal. No fracture. There is moderate osteoarthritis of medial compartme nt and mild osteoarthritis of lateral and patellofemoral compartments. There is chondrocalcinosis of the menisci. No knee joint effusion. IMPRESSION: 1. Moderate left knee osteoarthritis. Reviewed, dictated and finalized at location A. TRANSPLANT
--- NOTE | ~2021-04-12 | XR_ITS ---
EXAMINATION: XR hand RT min 3V INDICATION: Degloving injury of the third digit of the right hand TECHNIQUE: Three views of the right hand are obtained. COMPARISON: None available FINDINGS: There is a soft tissue defect of the proximal third finger. There is no fracture. Mild oste oarthritis is noted in multiple interphalangeal joints. There is advanced osteoarthritis at the first carpometacarpal joint. IMPRESSION: 1. Soft tissue defect of the proximal third finger without acute osseous abnormality. Reviewed, dictated and finalized at location F. I PHYSIOTHERAPIST IMPRESSION: 1. Soft tissue defect of the proximal third finger without acute osseous abnorm ality.
[2021-04-12 22:58] VITALS: BP 135/79; PULSE 88; RESP 18; TEMP 36.9; O2SAT 96
--- NOTE | 2021-04-12 23:50 | ED.UPPEXIN ---
HPI - Extremity Injury (Upper) General Chief Complaint: Extremity Injury, Upper <Omar Page MD - Last Filed: 04/13/21 06:19> Stated Complaint: INJURED FINGER <Omar Page MD - Last Filed: 04/13/21 06:19> Time Seen by Provider: 04/12/21 23:20 <Omar Page MD - Last Filed: 04/13/21 06:19> Source: patient <Omar Page MD - Last Filed: 04/13/21 06:19> History of Present Illness HPI narrative: Patient presents with finger injury. Reports she was trying to take her ring off and got caught and pulled skin. Pain is on the third digit of her right hand constant achy worse with moving the finger, no radiation. <Omar Page MD - Last Filed: 04/13/21 06:19> Related Data Home Medications: Home Medications Medication Instructions Recorded Confirmed pravastatin 40 mg PO HS 04/10/20 11/18/20 potassium chloride 10 meq PO DAILY 11/18/20 11/18/20 spironolactone 25 mg PO DAILY 11/18/20 11/18/20 <Omar Page MD - Last Filed: 04/13/21 06:19> Allergies/Adverse Reactions: Allergies Allergy/AdvReac Type Severity Reaction Status Date / Time No Known Allergies Allergy Verified 04/10/20 19:58 <Omar Page MD - Last Filed: 04/13/21 06:19> Review of Systems Review of Systems: CONSTITUTIONAL: Denies fever, chills, or sweats. EYES: Denies visual changes, redness, or discharge. ENT: Denies rhinorrhea, congestion, sore throat, or otalgia. CARDIOVASCULAR: Denies chest pain, palpitations, or edema. RESPIRATORY: Denies cough or dyspnea. GASTROINTESTINAL: Denies abdominal pain, nausea, vomiting, or diarrhea. GENITOURINARY: Denies dysuria or hematuria. SKIN: Denies rash or itching. MUSCULOSKELETAL: Denies back pain, joint pain, or myalgia. NEUROLOGIC: Denies headache, numbness, dizziness, or weakness. PSYCHIATRIC: Denies anxiety or depression. <Omar Page MD - Last Filed: 04/13/21 06:19> ROS unobtainable: Yes other (ROS may be limited due to patient's baseline dementia) <Omar Page MD - Last Filed: 04/13/21 06:19> PMFSH Past Medical History Medical History: Medical History Anxiety and depression Benign essential hypertension Chronic obstructive pulmonary disease Dementia Mixed hyperlipidemia Osteoporosis Personal history of nicotine dependence Primary osteoarthritis involving multiple joints Vitamin D deficiency <Omar Page MD - Last Filed: 04/13/21 06:19> Surgical History Surgical History: Surgical History History of bilateral breast implants History of hysterectomy <Omar Page MD - Last Filed: 04/13/21 06:19> Family History Family History: Family History Mother Family history of heart disease in male family member before age 55 <Omar Page MD - Last Filed: 04/13/21 06:19> Social History Social History: Social History Social History: Surrogate decision maker: Randy Head, son. Code status: Full code. Smoking packs per day: 1 Smoking cigarettes per day: 20.0 Years smoked: 59 Smoking pack-years: 59.00 Smoking status: Former smoker Tobacco type: cigarettes Alcohol intake: never Substance use: never Additional living arrangements comments: [facility] Additional occupation/education comments: Retired <Omar Page MD - Last Filed: 04/13/21 06:19> Exam Narrative: GENERAL: Well-appearing, well-nourished, and in no acute distress. HEAD: Normocephalic, atraumatic. EYES: PERRLA and EOMI. ENT: Nares clear, no rhinorrhea or epistaxis. Mucous membranes moist. NECK: Supple. No masses. No JVD EXTREMITIES: Avulsion injury to the middle aspect of the third digit right hand no tendons visualized no major neurovascular bundle visualiz
[2021-04-13] MEDS: TETANUS,DIPHTHERIA,AC PERTUSSIS ADULT (0.5 ML) BOOSTRIX IM (00:17)
[2021-04-13 02:30] VITALS: BP 124/87; PULSE 76; RESP 15; O2SAT 98
--- NOTE | 2021-04-13 05:20 | PC.NURSE ---
patient at end of bed at kneeling position no obvious fall. Patient denies falling.
--- NOTE | 2021-04-13 05:21 | PC.NURSE ---
bed alarm placed under pt at this time.
--- NOTE | 2021-04-13 05:22 | PC.NURSE ---
Addendum entered by Marta Garcia RN 04/13/21 06:07: Pt was checked into room/initial assessment done by Rosa DARLING, bed alarm was found behind bed at incident - assumed to be initiated by charting RN. Unknown by this RN if was plugged in/in use. Properly placed and tested/checked for proper use following documented incident. Original Note: This RN was notified pt was found on floor (on knees) by two ED techs - Skyla and Linette who assisted pt back to her stretcher. No obvious injuries. ED charge made aware. Pt placed on bed alarm and call light in reach.
[2021-04-13 05:40] VITALS: BP 124/82; PULSE 71; RESP 15; O2SAT 97
--- NOTE | 2021-04-13 05:41 | PC.NURSE ---
Per EDP ordered X-Ray on knees to make sure there is no injury. Patient arrived to ED with prior bilateral knee pain.
--- NOTE | 2021-04-13 05:52 | PC.NURSE ---
Per EDP Dr Page, knee XRAYS/films normal and pt is to be discharged as planned.
== END 2021-04-13 05:58 ==
PROVIDERS: Emergency Provider Emergency Medicine; PCP Internal Medicine
DX: S61.212A Laceration without foreign body of right middle finger without damage to nail, initial encounter (principal); S89.92XA Unspecified injury of left lower leg, initial encounter; S89.91XA Unspecified injury of right lower leg, initial encounter; Z23 Encounter for immunization; I10 Essential (primary) hypertension; J44.9 Chronic obstructive pulmonary disease, unspecified; E78.2 Mixed hyperlipidemia; M17.0 Bilateral primary osteoarthritis of knee; M81.0 Age-related osteoporosis without current pathological fracture; E55.9 Vitamin D deficiency, unspecified; Z87.891 Personal history of nicotine dependence; X58.XXXA Exposure to other specified factors, initial encounter; W19.XXXA Unspecified fall, initial encounter
CPT/HCPCS: 12002; 73130; 73562; 90471; 90715; 99284

== ENCOUNTER 2021-07-30 03:20 | Emergency (ER) | payer MEDICARE, SELFPAY ==
--- NOTE | ~2021-07-30 | CT_ITS ---
EXAMINATION: CT brain wo con DATE: 07/30/2021 04:06 INDICATION: Head injury TECHNIQUE: Computed tomography (CT) of the head was performed without intravenous contrast. The mA wa s adjusted according to patient size. Iterative reconstruction technique was employed. Exam dose: 68 1.00 mGy-cm total exam DLP. COMPARISON: 11/18/2020 CT brain FINDINGS: Bilateral carotid siphon internal carotid artery calcifications. There is nonspecific dimin ished attenuation of the cerebral white matter, likely due to chronic small vessel ischemic changes. Central and cortical cerebral atrophy, cerebellar volume loss. No intracranial mass lesion or hemorrhage, midline shift or mass effect effect is noted. No subdural or epidural hematoma. No fracture or bone destruction of the cranial vault. Included paranasal sinuses and mastoid air cell s are normally developed and aerated. IMPRESSION: Cerebral atherosclerosis and chronic small vessel ischemic changes of the cerebral white matter Cerebral and cerebellar volume loss No acute intracranial finding Reviewed, dictated and finalized at Location A. Reviewed, dictated and finalized at location A.
[2021-07-30 03:20] VITALS: BP 121/76; PULSE 79; RESP 20; TEMP 36.4; O2SAT 94
[2021-07-30 05:20] VITALS: BP 126/92; PULSE 80; RESP 16; O2SAT 98
--- NOTE | 2021-07-30 05:27 | ED.GENADULT ---
HPI - General Adult General Chief complaint: Fall Stated complaint: GLF no complaints Time Seen by Provider: 07/30/21 03:29 History of Present Illness HPI narrative: Patient 81-year-old female with history of dementia who presents ER with a ground-level fall from her memory care. Unknown LOC. Patient is not on blood thinners. No obvious scalp hematoma. No lower extremity deformity. Moves legs without pain. Related Data Home Medications Medication Instructions Recorded Confirmed pravastatin 40 mg tablet 40 mg PO HS 04/10/20 11/18/20 potassium chloride 10 mEq 10 meq PO DAILY 11/18/20 11/18/20 capsule,extended release spironolactone 25 mg tablet 25 mg PO DAILY 11/18/20 11/18/20 Allergies Allergy/AdvReac Type Severity Reaction Status Date / Time No Known Allergies Allergy Verified 04/10/20 19:58 Review of Systems Review of Systems: ROS unobtainable: Yes unobtainable due to mental status PMFSH Past Medical History Medical History Anxiety and depression Benign essential hypertension Chronic obstructive pulmonary disease Dementia Mixed hyperlipidemia Osteoporosis Personal history of nicotine dependence Primary osteoarthritis involving multiple joints Vitamin D deficiency Surgical History Surgical History History of bilateral breast implants History of hysterectomy Family History Family History Mother Family history of heart disease in male family member before age 55 Social History Social History Social History: Surrogate decision maker: Randy Head, son. Code status: Full code. Smoking packs per day: 1 Smoking cigarettes per day: 20.0 Years smoked: 59 Smoking pack-years: 59.00 Smoking status: Former smoker Tobacco type: cigarettes Alcohol intake: never Substance use: never Additional living arrangements comments: [facility] Additional occupation/education comments: Retired Exam Narrative: GENERAL: Well-appearing, well-nourished, and in no acute distress. HEAD: Normocephalic, atraumatic. EYES: PERRL and EOMI. ENT: Mucous membranes moist. CHEST: Clear to auscultation. No respiratory distress. HEART: Regular rate and rhythm. Normal peripheral pulses. ABDOMEN: Soft, nontender, nondistended. EXTREMITIES: Normal range of motion. No edema. SKIN: Warm, dry, no rash. NEURO: Alert and oriented x2. Course Course Emergency Course: No acute injury. Discharge back to alf. Vital Signs Vital signs: Vital Signs Temperature 97.6 F 07/30/21 03:20 Pulse Rate 79 07/30/21 03:20 Respiratory Rate 20 07/30/21 03:20 Blood Pressure 121/76 07/30/21 03:20 Pulse Oximetry 94 07/30/21 03:20 Oxygen Delivery Room Air 07/30/21 03:20 Temperature 97.6 F 07/30/21 03:20 Pulse Rate 80 07/30/21 05:20 Respiratory Rate 16 07/30/21 05:20 Blood Pressure 126/92 H 07/30/21 05:20 Pulse Oximetry 98 07/30/21 05:20 Oxygen Delivery Room Air 07/30/21 03:20 Medical Decision Making Vital Signs Vital Signs: Vital Signs Temperature 97.6 F 07/30/21 03:20 Pulse Rate 79 07/30/21 03:20 Respiratory Rate 20 07/30/21 03:20 Blood Pressure 121/76 07/30/21 03:20 Pulse Oximetry 94 07/30/21 03:20 Oxygen Delivery Room Air 07/30/21 03:20 Temperature 97.6 F 07/30/21 03:20 Pulse Rate 80 07/30/21 05:20 Respiratory Rate 16 07/30/21 05:20 Blood Pressure 126/92 H 07/30/21 05:20 Pulse Oximetry 98 07/30/21 05:20 Oxygen Delivery Room Air 07/30/21 03:20 Imaging Data Radiologist's impression: CT head: No ICH, mass-effect or edema. No evidence of acute cortical stroke. No skull fracture. Periventricular small vessel ischemic changes. Visualized sinuses and mastoid air cells are clear. Disc
--- NOTE | 2021-07-30 05:58 | PC.NURSE ---
EMS eta for pt 0830. attempted to call report at this time, per staff there will be no RN to take report until 0700
[2021-07-30 06:48] VITALS: BP 129/79; PULSE 87; RESP 16; O2SAT 97
--- NOTE | 2021-07-30 07:13 | PC.NURSE ---
report given to Eilot at this time at [facility]
[2021-07-30 07:33] VITALS: BP 127/87; PULSE 79; RESP 14; O2SAT 99
== END 2021-07-30 08:19 ==
PROVIDERS: Emergency Provider Emergency Medicine; PCP Internal Medicine
DX: Z04.3 Encounter for examination and observation following other accident (principal); J44.9 Chronic obstructive pulmonary disease, unspecified; E78.2 Mixed hyperlipidemia; F03.90 Unspecified dementia, unspecified severity, without behavioral disturbance, psychotic disturbance, mood disturbance, and anxiety; I10 Essential (primary) hypertension; Z87.891 Personal history of nicotine dependence; W18.30XA Fall on same level, unspecified, initial encounter; Y92.89 Other specified places as the place of occurrence of the external cause
CPT/HCPCS: 70450; 99284

== ENCOUNTER 2021-08-21 11:46 | Emergency (ER) | payer MEDICARE, SELFPAY ==
--- NOTE | ~2021-08-21 | XR_ITS ---
EXAMINATION: XR hip RT 2V w AP pelvis INDICATION: Right hip pain TECHNIQUE: AP view the pelvis and two views of the right hip are obtained. COMPARISON: 04/10/2020 FINDINGS: Bone alignment is normal. There is no acute fracture. There are old fractures of the left s uperior and inferior pubic rami. There is moderate osteoarthritis of the hips. The soft tissues are u nremarkable. IMPRESSION: 1. Moderate osteoarthritis of the hips without acute osseous abnormality. Reviewed, dictated and finalized at location B.
[2021-08-21 11:51] VITALS: BP 116/75; PULSE 74; RESP 16; O2SAT 100
[2021-08-21 12:11] VITALS: TEMP 36.6
--- NOTE | 2021-08-21 12:53 | ED.FALL ---
HPI - Fall General Chief Complaint: Fall Stated Complaint: fall - no pain per pt Time Seen by Provider: 08/21/21 12:01 History of Present Illness HPI Narrative: Patient is a 81-year-old female who presents ER from [facility] after reports of fall by the nursing staff. They would like her right hip evaluated. At baseline patient uses a wheelchair. Patient is demented and oriented x1 at baseline. Patient has no complaints but cannot provide any history. No obvious deformity. Patient is able to move her lower extremity without pain. Related Data Home Medications Medication Instructions Recorded Confirmed pravastatin 40 mg tablet 40 mg PO HS 04/10/20 11/18/20 potassium chloride 10 mEq 10 meq PO DAILY 11/18/20 11/18/20 capsule,extended release spironolactone 25 mg tablet 25 mg PO DAILY 11/18/20 11/18/20 Allergies Allergy/AdvReac Type Severity Reaction Status Date / Time No Known Allergies Allergy Verified 08/21/21 12:04 Review of Systems Review of Systems: ROS unobtainable: Yes unobtainable due to mental status PMFSH Past Medical History Medical History Anxiety and depression Benign essential hypertension Chronic obstructive pulmonary disease Dementia Mixed hyperlipidemia Osteoporosis Personal history of nicotine dependence Primary osteoarthritis involving multiple joints Vitamin D deficiency Surgical History Surgical History History of bilateral breast implants History of hysterectomy Family History Family History Mother Family history of heart disease in male family member before age 55 Social History Social History Social History: Surrogate decision maker: Randy Head, son. Code status: Full code. Smoking packs per day: 1 Smoking cigarettes per day: 20.0 Years smoked: 59 Smoking pack-years: 59.00 Smoking status: Former smoker Tobacco type: cigarettes Alcohol intake: never Substance use: never Additional living arrangements comments: [facility] Additional occupation/education comments: Retired Exam Narrative: GENERAL: Well-appearing, well-nourished, and in no acute distress. HEAD: Normocephalic, atraumatic. EYES: PERRLA and EOMI. ENT: Mucous membranes moist. NECK: Supple. CHEST: Clear to auscultation. No respiratory distress. HEART: Regular rate and rhythm. Normal peripheral pulses. ABDOMEN: Soft, nontender, nondistended. EXTREMITIES: Normal range of motion. No edema. SKIN: Warm, dry, no rash. NEURO: Alert and oriented x1. Course Course Emergency Course: Urinalysis concerning for infection. May have precipitated the fall. Patient also appears dry and will receive some fluid as well as cephalexin [facility] Vital Signs Vital signs: Vital Signs Pulse Rate 74 08/21/21 11:51 Respiratory Rate 16 08/21/21 11:51 Blood Pressure 116/75 08/21/21 11:51 Pulse Oximetry 100 08/21/21 11:51 Oxygen Delivery Room Air 08/21/21 11:51 Temperature 98 F 08/21/21 12:11 Pulse Rate 74 08/21/21 11:51 Respiratory Rate 16 08/21/21 11:51 Blood Pressure 116/75 08/21/21 11:51 Pulse Oximetry 100 08/21/21 11:51 Oxygen Delivery Room Air 08/21/21 11:51 MDM - Fall Lab Data Result diagrams: 08/21/21 13:24 08/21/21 13:24 Labs: Lab Results 08/21/21 08/21/21 08/21/21 Range/Units 13:24 13:24 13:24 WBC 7.7 (4.5-10.0) K/mm3 RBC 3.84 L (4.2-5.4) M/mm3 Hgb 11.2 L (12.0-15.0) g/dL Hct 36.6 L (37.0-47.0) % MCV 95.3 (80-100) fl MCH 29.2 (26-34) pg MCHC 30.6 L (32-36) g/dl RDW 15.0 H (11.5-14.5) % Plt Count 183 (150-375) k/mm3 MPV 11.1 H (7.4-10.4) fl Immature Gran % (Auto) 0.3 (0-0.5) % Ne
--- NOTE | 2021-08-21 12:58 | PC.NURSE ---
Pt to xray
[2021-08-21 13:49] LABS: Appearance Urine Cloudy (Clear); Bilirubin Urine Negative (Negative); Blood Urine 1+ (Negative); Glucose Urine UA Negative (Negative); Ketones Urine Negative (Negative); Leukocyte Esterase Ur 3+ LEU/UL (Negative); Nitrate Urine Negative (Negative); Protein Urine Negative (Negative); Urobilinogen Urine 0.2 mg/dL (<2.0); pH Urine 5.5 (5.0-9.0)
[2021-08-21 13:51] LABS: Add Urine Microscopic? YES; Color Urine Light Yellow (Yellow)
[2021-08-21 13:55] LABS: Bacteria Urine Trace /hpf; Squamous Epithelial Cell Urine Many /hpf (Few); WBC Clumps Urine Present /HPF; WBC Urine >75 /hpf
[2021-08-21 14:44] LABS: Basophils Percent Auto 0.4 % (0.2-1.2); Eosinophils Percent Auto 0.4 % (0-4.4); Hematocrit 36.6 % (37.0-47.0); Hemoglobin 11.2 g/dL (12.0-15.0); Immature Granulocyte Absolute 0.02 K/mm3 (0.00-0.031); Immature Granulocyte Percent A 0.3 % (0-0.5); Lymphocytes Absolute Auto 0.94 K/mm3 (0.9-3.2); Lymphocytes Percent Auto 12.3 % (18.3-44.2); Mean Corpuscular HGB Conc 30.6 g/dl (32-36); Mean Corpuscular Hemoglobin 29.2 pg (26-34); Mean Corpuscular Volume 95.3 fl (80-100); Mean Platelet Volume 11.1 fl (7.4-10.4); Monocytes Absolute Auto 0.4 K/mm3 (0.1-0.6); Monocytes Percent Auto 5.2 % (2.6-8.5); Neutrophils Absolute Auto 6.2 K/mm3 (1.3-6.7); Neutrophils Percent Auto 81.4 % (45.5-73.1); Platelet Count Result 183 k/mm3 (150-375); Red Blood Count 3.84 M/mm3 (4.2-5.4); White Blood Count 7.7 K/mm3 (4.5-10.0)
[2021-08-21 14:56] LABS: Anion Gap 6 mmol/L (8-16); Blood Urea Nitrogen 30 mg/dL (7-17); Calcium 8.4 mg/dL (8.4-10.2); Carbon Dioxide 27 mmol/L (22-30); Chloride 107 mmol/L (98-107); Estimated CRCL calculation 24 ml/min; Estimated Glomerular Filt Rate 48; Glucose 98 mg/dL (65-110); Potassium 4.4 mmol/L (3.4-5.0); Sodium 140 mmol/L (137-145)
[2021-08-21] MEDS: SODIUM CHLORIDE 0.9% IV 1,000 ML 999 ML IV CONT (15:16)
[2021-08-21] MEDS: CEPHALEXIN 500 MG CAPSULE PO (15:25)
== END 2021-08-21 16:20 ==
PROVIDERS: Emergency Provider Emergency Medicine; PCP Internal Medicine
DX: N39.0 Urinary tract infection, site not specified (principal); E86.0 Dehydration; F41.9 Anxiety disorder, unspecified; F32.9 Major depressive disorder, single episode, unspecified; J44.9 Chronic obstructive pulmonary disease, unspecified; F03.90 Unspecified dementia, unspecified severity, without behavioral disturbance, psychotic disturbance, mood disturbance, and anxiety; E78.5 Hyperlipidemia, unspecified; M81.0 Age-related osteoporosis without current pathological fracture; Z90.710 Acquired absence of both cervix and uterus
CPT/HCPCS: 36415; 51701; 73502; 80048; 81001; 85025; 87077; 87086; 87186; 96360; 99283; A9270; J7030

== ENCOUNTER 2022-03-22 19:47 | Emergency (ER) | payer MEDICARE, SELFPAY ==
--- NOTE | ~2022-03-22 | CT_ITS ---
EXAMINATION: CT cervical spine wo con DATE: 03/22/2022 20:18 INDICATION: Neck pain. Fall. TECHNIQUE: Computed tomography (CT) of the cervical spine was performed without intravenous contrast. Automated exposure control and iterative reconstruction technique were employed. The dose-length pro duct was 104.44 mGy-cm. COMPARISON: None FINDINGS: The lung apices demonstrate emphysema. There is a 4 mm nodule in right upper lobe, likely b enign. There is 2 mm anterolisthesis of C3 on C4 and 2 mm retrolisthesis of C4 on C5 and C5 and C6. T here is 7 degrees levocurvature of cervical spine. There is mild chronic anterior wedging of T1 verte bral body. There is mildly decreased disc height at C3-C4 and C4-C5 and severely decreased disc heigh t at C5-C6 and C6-C7. The following disc levels are specifically discussed: C2-C3: There is no uncovertebral joint osteoarthritis. There is severe bilateral facet joint osteoart hritis. There is mild bilateral neural foraminal stenosis. There is mild central canal stenosis. C3-C4: There is severe right and mild left uncovertebral joint osteoarthritis. There is moderate left facet joint osteoarthritis. There is ankylosis of right facet joint with severe hypertrophy. There i s moderate right neural foraminal stenosis. There is mild central canal stenosis. C4-C5: There is mild bilateral uncovertebral joint osteoarthritis. There is severe right and mild lef t facet joint osteoarthritis. There is mild right neural foraminal stenosis. There is mild central ca nal stenosis. C5-C6: There is severe bilateral uncovertebral joint osteoarthritis. There is severe right and modera te left facet joint osteoarthritis. There is moderate right and mild left neural foraminal stenosis. There is mild central canal stenosis. C6-C7: There is severe bilateral uncovertebral joint osteoarthritis. There is mild bilateral facet laazro int osteoarthritis. There is mild bilateral neural foraminal stenosis. There is mild central canal st enosis. C7-T1: There is no uncovertebral joint osteoarthritis. There is severe bilateral facet joint osteoart hritis. There is mild bilateral neural foraminal stenosis. There is no central canal stenosis. IMPRESSION: 1. No fracture. 2. Severe cervical spondylosis. Reviewed, dictated and finalized at location A. O PNEUMATIC TESTER
--- NOTE | ~2022-03-22 | CT_ITS ---
EXAMINATION: CT brain wo con DATE: 03/22/2022 20:14 INDICATION: Fall. Neck pain. TECHNIQUE: Computed tomography (CT) of the head was performed without intravenous contrast. The mA wa s adjusted according to patient size. Iterative reconstruction technique was employed. The dose-lengt h product was 681.00 mGy-cm. COMPARISON: Head CT 07/30/2021 FINDINGS: There is old infarct in right basal ganglia. There are scattered areas of low attenuation i n the cerebral white matter. There is no intracranial hemorrhage, acute infarction, or abnormal intra cranial mass lesion. The ventricles are normal in size. There are likely changes of ocular lens repla cement surgeries. There is mild mucosal thickening in the ethmoid sinuses. The mastoid air cells are normal. IMPRESSION: 1. Old infarct in the right basal ganglia. 2. Stable extensive nonspecific cerebral white matter disease, which likely represents chronic small vessel ischemic disease. Reviewed, dictated and finalized at location A. ISTRY TECHNICAL OFFICER IMPRESSION: 1. Old infarct in the right basal ganglia. 2. Stable extensive nonspecific cerebral white matter disease, which likely rep resents chronic small vessel ischemic disease.
--- NOTE | ~2022-03-22 | XR_ITS ---
EXAMINATION: XR hand LT min 3V DATE: 03/22/2022 21:54 INDICATION: Left hand injury. TECHNIQUE: 3 views of left hand were obtained. COMPARISON: None. FINDINGS: Bone alignment is normal. No fracture. There is severe osteoarthritis of first carpometacar pal joint and mild osteoarthritis of triscaphe joint, first metacarpophalangeal joint, and first inte rphalangeal joint. IMPRESSION: 1. Polyarticular osteoarthritis. Reviewed, dictated and finalized at location A. IAL EDUCATION COORDINATOR
[2022-03-22 19:58] VITALS: BP 141/68; PULSE 86; RESP 18; TEMP 36.7; O2SAT 98
[2022-03-22 20:55] VITALS: O2SAT 96
[2022-03-22 21:00] VITALS: O2SAT 95
--- NOTE | 2022-03-22 21:56 | ED.FALL ---
HPI - Fall General Chief Complaint: Fall Stated Complaint: fall? AMS? Time Seen by Provider: 03/22/22 20:47 Source: patient, RN notes reviewed and old records reviewed Mode of arrival: EMS Limitations: dementia History of Present Illness HPI Narrative: Patient is a 81-year-old female who presents the ED via EMS with report of a fall. Patient is a resident of [facility]. Per correction report, patient had an unwitnessed fall today. It is unknown if she hit her head or loss consciousness. Patient is not on any blood thinners. She was sent here for further evaluation. Patient also sustained skin tears to her left dorsal hand. Patient unable to tell me how the fall occurred. She has a history of dementia and is alert and oriented x2 at baseline. She complains of pain to her left hand, otherwise denies any pain, dizziness, chest pain, difficulty breathing. Related Data Home Medications Medication Instructions Recorded Confirmed pravastatin 40 mg tablet 40 mg PO HS 04/10/20 11/18/20 potassium chloride 10 mEq 10 meq PO DAILY 11/18/20 11/18/20 capsule,extended release spironolactone 25 mg tablet 25 mg PO DAILY 11/18/20 11/18/20 Allergies Allergy/AdvReac Type Severity Reaction Status Date / Time No Known Allergies Allergy Verified 08/21/21 12:04 Review of Systems Review of Systems: CONSTITUTIONAL: Denies fever, chills, or sweats. SKIN: See HPI. MUSCULOSKELETAL: See HPI. NEUROLOGIC: See HPI. All systems reviewed & are unremarkable except as noted in HPI and below PMFSH Past Medical History Medical History Anxiety and depression Benign essential hypertension Chronic obstructive pulmonary disease Dementia Mixed hyperlipidemia Osteoporosis Personal history of nicotine dependence Primary osteoarthritis involving multiple joints Vitamin D deficiency Surgical History Surgical History History of bilateral breast implants History of hysterectomy Family History Family History Mother Family history of heart disease in male family member before age 55 Social History Social History Social History: Surrogate decision maker: Randy Head, son. Code status: Full code. Smoking packs per day: 1 Smoking cigarettes per day: 20.0 Years smoked: 59 Smoking pack-years: 59.00 Smoking status: Former smoker Tobacco type: cigarettes Alcohol intake: never Substance use: never Additional living arrangements comments: [facility] Additional occupation/education comments: Retired Exam Narrative: GENERAL: Elderly, frail, non-toxic, in no acute distress. HEAD: Normocephalic, atraumatic. No palpable contusions or scalp tenderness to palpation. NECK: Supple. No adenopathy, no masses. No appreciable tenderness to midline cervical spine. RESPIRATORY: Airway patent, respirations nonlabored. Clear to auscultation bilaterally, no rales, rhonchi, wheezing. CARDIOVASCULAR: Regular rate and rhythm without murmurs, rubs, or gallops. Peripheral pulses 2+ and equal bilaterally. MUSCULOSKELETAL: Moves all extremities, moving legs equally. Strength/ROM intact without gross deformities. Full range of motion of left hand and elbow. SKIN: Warm, dry, normal color. No rashes. 2 skin tears to dorsal surface of left hand, 3cm over area of fourth and fifth metacarpals, second tear approx 6 cm over first and second metacarpals and webspace between first and second digits. Bleeding controlled. Superficial skin tears, no deeper wounds. Deeper structures intact, no signs of tendon injury. Small abrasion to his left outer elbow with ecchymosis present, no tenderness. NEURO: A&O X1-2, unsure of year, knows she is at a hospital, but unsure of name and hospital. Spe
[2022-03-22] MEDS: LIDOCAINE HCL 1% PF 30 ML VIAL 5 ML INFILTRATE (23:00)
--- NOTE | 2022-03-22 23:58 | ECG_ITS ---
Measurements Intervals [place] Rate: 85 P: 78 VT: 153 QRS: 52 QRSD: 74 T: -35 QT: 357 QTc: 425 Interpretive Statements SINUS RHYTHM ST DEVIATION AND MODERATE T-WAVE ABNORMALITY, CONSIDER ANTEROLATERAL ISCHEMIA [-0.1+ mV T-WAVE IN V3-V6] ABNORMAL ECG COMPARED TO ECG 03/23/2022 01:25:06 NO SIGNIFICANT CHANGES Electronically Signed On 03-23-2022 12:47:26 [employer] by Jemal Aiken M.D.
[2022-03-23 00:34] LABS: Basophils Percent Auto 0.3 % (0.2-1.2); Eosinophils Absolute Auto 0.1 K/mm3 (0-0.3); Eosinophils Percent Auto 0.9 % (0-4.4); Hematocrit 34.7 % (37.0-47.0); Hemoglobin 10.8 g/dL (12.0-15.0); Immature Granulocyte Absolute 0.02 K/mm3 (0.00-0.031); Immature Granulocyte Percent A 0.2 % (0-0.5); Mean Corpuscular HGB Conc 31.1 g/dl (32-36); Mean Corpuscular Hemoglobin 29.3 pg (26-34); Mean Corpuscular Volume 94.3 fl (80-100); Monocytes Absolute Auto 0.5 K/mm3 (0.1-0.6); Neutrophils Absolute Auto 6.6 K/mm3 (1.3-6.7); Neutrophils Percent Auto 75.6 % (45.5-73.1); Platelet Count Result 197 k/mm3 (150-375); Red Blood Count 3.68 M/mm3 (4.2-5.4); Red Cell Distribution Width 15.5 % (11.5-14.5); White Blood Count 8.8 K/mm3 (4.5-10.0)
[2022-03-23 00:49] LABS: Alanine Aminotransferase 14 U/L (6-35); Albumin Level 3.6 g/dL (3.5-5.1); Alkaline Phosphatase 59 U/L (38-126); Anion Gap 5 mmol/L (8-16); Aspartate Amino Transferase 23 U/L (14-36); Bilirubin,Total 0.4 mg/dL (0.2-1.3); Blood Urea Nitrogen 18 mg/dL (7-17); Calcium 8.3 mg/dL (8.4-10.2); Carbon Dioxide 26 mmol/L (22-30); Chloride 110 mmol/L (98-107); Estimated Glomerular Filt Rate > 60; Glucose 108 mg/dL (65-110); Potassium 3.7 mmol/L (3.4-5.0); Sodium 141 mmol/L (137-145)
--- NOTE | 2022-03-23 03:12 | PC.NURSE ---
Patient adamantly refuses a straight cath to collect urine. Several attempts have been made to take the patient to the bathroom to collect urine with no success, as the patient continues to be incontinent. After a final approach to straight cath was approached- the patient began escalating and refused with aggressive words and tone. Provider cancels urine order. In addition, it is noticed that the patient had pulled at her skin tear dressing that a been previously placed on arrival. Wound cleaned, steri-strips applied. Wrapped in rolled gauze for protection. Ambulance called to arrange transport. [facility] estimates [id number]
[2022-03-23 05:46] VITALS: BP 129/66; PULSE 79; RESP 16; O2SAT 96
== END 2022-03-23 05:48 ==
PROVIDERS: Emergency Provider Physician Assistant; PCP Internal Medicine
DX: S61.412A Laceration without foreign body of left hand, initial encounter (principal); S09.90XA Unspecified injury of head, initial encounter; F03.90 Unspecified dementia, unspecified severity, without behavioral disturbance, psychotic disturbance, mood disturbance, and anxiety; I10 Essential (primary) hypertension; J44.9 Chronic obstructive pulmonary disease, unspecified; E78.2 Mixed hyperlipidemia; M81.0 Age-related osteoporosis without current pathological fracture; E55.9 Vitamin D deficiency, unspecified; Z90.710 Acquired absence of both cervix and uterus; Z87.891 Personal history of nicotine dependence; R90.82 White matter disease, unspecified; M19.042 Primary osteoarthritis, left hand; M18.9 Osteoarthritis of first carpometacarpal joint, unspecified; M19.032 Primary osteoarthritis, left wrist; M47.812 Spondylosis without myelopathy or radiculopathy, cervical region; R94.31 Abnormal electrocardiogram [ECG] [EKG]; W18.30XA Fall on same level, unspecified, initial encounter
CPT/HCPCS: 36415; 70450; 72125; 73130; 80053; 85025; 93005; 99284

== ENCOUNTER 2022-06-07 22:10 | Emergency (ER) | payer MEDICARE, SELFPAY ==
[2022-06-07] VITALS (10 sets, daily range): BP systolic 103–119; BP diastolic 58–72; PULSE 77–78; RESP 14–17; TEMP 36.4–36.6; O2SAT 92–98
--- NOTE | ~2022-06-07 | CT_ITS ---
EXAMINATION: CT brain wo con INDICATION: Head injury COMPARISON: 03/22/2022 TECHNIQUE: Standard unenhanced head CT. The dose-length product (DLP) was 681.00 mGy-cm. The mA was a djusted according to patient size. Iterative reconstruction technique was employed. FINDINGS: There is no acute intraparenchymal hemorrhage. No evidence of mass lesion. No evidence of a cute infarction. There is mild periventricular and subcortical hypodensity probably related to small vessel ischemic disease. There is moderate prominence of the sulci and ventricles related to cerebral atrophy. Intracranial calcified cerebral atherosclerosis is noted. There are no extra-axial collecti ons. There is no mass effect or midline shift. Changes in the globes are likely from ocular lens surg krystal. The visualized sinuses and mastoid air cells are well aerated. IMPRESSION: 1. No acute intracranial abnormality. 2. Age related findings. Reviewed, dictated and finalized at location A.
--- NOTE | ~2022-06-07 | CT_ITS ---
EXAMINATION: CT cervical spine wo con DATE: 06/07/2022 23:55 INDICATION: Head injury TECHNIQUE: Computed tomography (CT) of the cervical spine was performed without intravenous contrast. The dose-length product (DLP) was 109.14 mGy-cm. Automated exposure control and iterative reconstruc tion technique were employed. COMPARISON: 03/22/2022 FINDINGS: There are 2 mm of stable anterolisthesis of C3 on C4 and 2 mm of stable retrolisthesis of C 4 on C5 and C5 on C6. There is no fracture. There is severe loss of intervertebral disc space height at C5-6 and C6-7. There is mild loss of intervertebral disc space height at C4-5 and C3-4. The odonto id process is intact. The prevertebral soft tissues are normal. There is multilevel severe facet and uncovertebral joint osteoarthritis. IMPRESSION: 1. Severe cervical spondylosis without acute findings or significant interval change. Reviewed, dictated and finalized at location A. IMPRESSION: 1. Severe cervical spondylosis without acute findings or significant interval c landen.
--- NOTE | ~2022-06-07 | XR_ITS ---
EXAMINATION: XR shoulder LT min 2V INDICATION: Left shoulder pain TECHNIQUE: Four views of the left shoulder are submitted. COMPARISON: None FINDINGS: Normal alignment. No fracture. There is moderate acromioclavicular joint osteoarthritis. Th ere is moderate to severe glenohumeral joint osteoarthritis. Soft tissues are unremarkable. IMPRESSION: 1. Osteoarthritis without acute osseous abnormality. Reviewed, dictated and finalized at location A.
--- NOTE | ~2022-06-07 | XR_ITS ---
EXAMINATION: XR knee RT min 4V DATE: 06/08/2022 00:44 INDICATION: Right knee pain TECHNIQUE: Four views of the right knee were obtained. COMPARISON: 04/13/2021 FINDINGS: Alignment is normal. No fracture or osteochondral lesion. There is mild tricompartmental os teoarthritis characterized by tiny marginal osteophytes. No joint effusion/synovitis. Calcified athe rosclerosis is noted. IMPRESSION: 1. No acute osseous abnormality. Reviewed, dictated and finalized at location A.
--- NOTE | ~2022-06-07 | XR_ITS ---
EXAMINATION: XR chest 1V portable INDICATION: Chest pain after fall TECHNIQUE: Portable AP chest at 0024 hours COMPARISON: 11/18/2020 FINDINGS: There are minimal airspace opacities of the lung bases. Small pleural effusions are suggest ed. There is no pneumothorax. The cardiomediastinal silhouette is stable. IMPRESSION: 1. Minimal bibasilar airspace opacities, consistent with atelectasis versus pneumonia. 2. Probable small pleural effusions. Reviewed, dictated and finalized at location A. IMPRESSION: 1. Minimal bibasilar airspace opacities, consistent with atelectasis versus pne umonia. 2. Probable small pleural effusions.
--- NOTE | ~2022-06-07 | XR_ITS ---
EXAMINATION: XR hip BI 2V w AP pelvis DATE: 06/08/2022 00:44 INDICATION: Pain after fall TECHNIQUE: AP view the pelvis and two views of each hip were obtained. COMPARISON: 08/21/2021 FINDINGS: There is no acute fracture. There are old fractures of the left inferior and superior pubic rami. There is moderate osteoarthritis of the hips. The soft tissues are unremarkable. IMPRESSION: 1. No acute osseous abnormality. Reviewed, dictated and finalized at location A.
--- NOTE | 2022-06-07 22:18 | ECG_ITS ---
Measurements Intervals [place] Rate: 78 P: 42 IA: 133 QRS: 52 QRSD: 78 T: 62 QT: 387 QTc: 442 Interpretive Statements SINUS RHYTHM NONSPECIFIC ST & T-WAVE ABNORMALITY ABNORMAL ECG COMPARED TO ECG 03/23/2022 01:25:55 NO SIGNIFICANT CHANGES Electronically Signed On 06-08-2022 7:25:41 CDT by Riley Miller M.D.
--- NOTE | 2022-06-07 23:28 | ED.FALL ---
HPI - Fall General Chief Complaint: Fall <JOHN Magana Last Filed: 06/08/22 03:14> Stated Complaint: fall <Michelle Esquivel PA-C - Last Filed: 06/08/22 03:14> Time Seen by Provider: 06/07/22 23:11 <Michelle Esquivel PA-C - Last Filed: 06/08/22 03:14> History of Present Illness HPI Narrative: 82-year-old female with a history of osteoporosis, hypertension, DILSHAD, COPD, dementia reports via EMS from [facility] for fall. Per EMS, staff found patient on the floor. On exam, she is unsure why she is here but does complain of left shoulder pain, right knee pain and neck pain. Spoke with Robert Gallego CNA from [facility] who said patient was found next to her bed and was assumed to have fallen out of bed. Pt is normally pleasantly confused and A&Ox2. Pt is denying chest pain, shortness of breath, dizziness, focal numbness or tingling. She denies hitting her head or losing consciousness <Michelle Esquivel PA-C - Last Filed: 06/08/22 03:14> Related Data Home Medications: Home Medications Medication Instructions Recorded Confirmed pravastatin 40 mg tablet 40 mg PO HS 04/10/20 11/18/20 potassium chloride 10 mEq 10 meq PO DAILY 11/18/20 11/18/20 capsule,extended release spironolactone 25 mg tablet 25 mg PO DAILY 11/18/20 11/18/20 <JOHN Magana Last Filed: 06/08/22 03:14> Allergies/Adverse Reactions: Allergies Allergy/AdvReac Type Severity Reaction Status Date / Time No Known Allergies Allergy Verified 06/07/22 22:11 <JOHN Magana Last Filed: 06/08/22 03:14> Review of Systems Review of Systems: ROS unobtainable: Yes unobtainable due to mental status (Dementia) <JOHN Magana Last Filed: 06/08/22 03:14> [facility] Past Medical History Medical History: Medical History Anxiety and depression Benign essential hypertension Chronic obstructive pulmonary disease Dementia Mixed hyperlipidemia Osteoporosis Personal history of nicotine dependence Primary osteoarthritis involving multiple joints Vitamin D deficiency <Michelle Esquivel PA-C - Last Filed: 06/08/22 03:14> Surgical History Surgical History: Surgical History History of bilateral breast implants History of hysterectomy <Michelle Esquivel PA-C - Last Filed: 06/08/22 03:14> Family History Family History: Family History Mother Family history of heart disease in male family member before age 55 <Michelle Esquivel PA-C - Last Filed: 06/08/22 03:14> Social History Social History: Social History Social History: Surrogate decision maker: Randy Head, son. Code status: Full code. Smoking packs per day: 1 Smoking cigarettes per day: 20.0 Years smoked: 59 Smoking pack-years: 59.00 Smoking status: Former smoker Tobacco type: cigarettes Alcohol intake: never Substance use: never Additional living arrangements comments: [facility] Additional occupation/education comments: Retired <Michelle Esquivel PA-C - Last Filed: 06/08/22 03:14> Exam Narrative: GENERAL: Well-appearing, well-nourished, and in no acute distress. Patient resting comfortably in exam bed. She appears confused HEAD: Normocephalic, atraumatic. No jerez sign or raccoon eyes EYES: PERRLA and EOMI. ENT: Nares clear, no rhinorrhea or epistaxis. Mucous membranes moist. Oropharynx without tonsillar hypertrophy exudate or other lesions. NECK: Supple. No adenopathy or masses. No midline tenderness, step-offs or deformities. BACK: No midline vertebral tenderness, step-offs or deformities CHEST: Clear to auscultation. No respiratory distress. No wheezes rales or rhonchi. No tenderness to chest with palpation
[2022-06-08] VITALS (21 sets, daily range): BP systolic 112–142; BP diastolic 59–99; PULSE 75–80; RESP 14–16; TEMP 36.5; O2SAT 90–100
[2022-06-08 00:46] LABS: Basophils Percent Auto 0.4 % (0.2-1.2); Eosinophils Absolute Auto 0.1 K/mm3 (0-0.3); Eosinophils Percent Auto 1.4 % (0-4.4); Hematocrit 35.4 % (37.0-47.0); Immature Granulocyte Absolute 0.02 K/mm3 (0.00-0.031); Immature Granulocyte Percent A 0.3 % (0-0.5); Lymphocytes Absolute Auto 1.53 K/mm3 (0.9-3.2); Lymphocytes Percent Auto 22.1 % (18.3-44.2); Mean Corpuscular HGB Conc 31.1 g/dl (32-36); Mean Corpuscular Hemoglobin 28.8 pg (26-34); Mean Corpuscular Volume 92.7 fl (80-100); Mean Platelet Volume 10.7 fl (7.4-10.4); Monocytes Absolute Auto 0.4 K/mm3 (0.1-0.6); Monocytes Percent Auto 6.2 % (2.6-8.5); Neutrophils Absolute Auto 4.8 K/mm3 (1.3-6.7); Neutrophils Percent Auto 69.6 % (45.5-73.1); Platelet Count Result 152 k/mm3 (150-375); Red Blood Count 3.82 M/mm3 (4.2-5.4); Red Cell Distribution Width 16.4 % (11.5-14.5); White Blood Count 6.9 K/mm3 (4.5-10.0)
[2022-06-08 00:58] LABS: Alanine Aminotransferase 13 U/L (6-35); Albumin Level 4.1 g/dL (3.5-5.1); Alkaline Phosphatase 48 U/L (38-126); Anion Gap 4 mmol/L (8-16); Aspartate Amino Transferase 23 U/L (14-36); Bilirubin,Total 0.4 mg/dL (0.2-1.3); Blood Urea Nitrogen 30 mg/dL (7-17); Calcium 8.5 mg/dL (8.4-10.2); Carbon Dioxide 30 mmol/L (22-30); Chloride 104 mmol/L (98-107); Creatine Kinase 71 U/L (30-135); Estimated Glomerular Filt Rate 48; Glucose 95 mg/dL (65-110); Potassium 4.3 mmol/L (3.4-5.0); Sodium 138 mmol/L (137-145)
[2022-06-08 01:09] LABS: Troponin I < 0.012 ng/mL (0.000-0.034)
[2022-06-08 01:22] LABS: Appearance Urine Cloudy (Clear); Bacteria Urine 4+ /hpf; Bilirubin Urine Negative (Negative); Blood Urine Negative (Negative); Color Urine Yellow (Yellow); Glucose Urine UA Negative (Negative); Ketones Urine Negative (Negative); Leukocyte Esterase Ur Trace LEU/UL (Negative); Need Manual Microscopic Reviewed; Nitrate Urine Positive (Negative); Protein Urine Negative (Negative); RBC Urine 0-2 /hpf (0-2); Specific Grav Ur 1.018 (1.001-1.035); Squamous Epithelial Cell Urine Occasional /hpf (Few); Urobilinogen Urine 0.2 mg/dL (<2.0); WBC Urine 0-5 /hpf
[2022-06-08 01:35] LABS: Add Urine Microscopic? YES
--- NOTE | 2022-06-08 02:50 | PC.NURSE ---
Called [facility] where the patient resides and per Paula Gallego the patient is wheelchair bound.
== END 2022-06-08 08:35 ==
PROVIDERS: Emergency Provider Physician Assistant; PCP Internal Medicine
DX: N39.0 Urinary tract infection, site not specified (principal); S19.9XXA Unspecified injury of neck, initial encounter; S49.92XA Unspecified injury of left shoulder and upper arm, initial encounter; S89.91XA Unspecified injury of right lower leg, initial encounter; F03.90 Unspecified dementia, unspecified severity, without behavioral disturbance, psychotic disturbance, mood disturbance, and anxiety; J44.9 Chronic obstructive pulmonary disease, unspecified; I10 Essential (primary) hypertension; E78.2 Mixed hyperlipidemia; E55.9 Vitamin D deficiency, unspecified; M17.12 Unilateral primary osteoarthritis, left knee; M81.0 Age-related osteoporosis without current pathological fracture; Z90.710 Acquired absence of both cervix and uterus; Z87.891 Personal history of nicotine dependence; R94.31 Abnormal electrocardiogram [ECG] [EKG]; R91.8 Other nonspecific abnormal finding of lung field; M47.812 Spondylosis without myelopathy or radiculopathy, cervical region; W06.XXXA Fall from bed, initial encounter
CPT/HCPCS: 36415; 70450; 71045; 72125; 73030; 73521; 73564; 80053; 81001; 82550; 84484; 85025; 87077; 87086; 87186; 93005; 96365; 99284; J0696

== ENCOUNTER 2022-07-11 10:36 | Emergency (ER) | payer MEDICARE, SELFPAY ==
[2022-07-11] VITALS (18 sets, daily range): BP systolic 106–135; BP diastolic 48–99; PULSE 76–86; RESP 17–27; TEMP 36.8; O2SAT 93–97
--- NOTE | ~2022-07-11 | XR_ITS ---
XR chest 1V portable 07/11/2022 11:22 Indication: Shortness of breath Procedure: AP portable chest Comparison: Comparison to multiple prior studies sequentially, with oldest reviewed study dated 04/10. Findings: The lungs are hyperinflated which is consistent with, but not diagnostic of chronic obstruc tive pulmonary disease. There is chronic interstitial lung disease of the lung bases. There is attenu ation of the lung bases by overlying breast implants. No acute osseous abnormality. No acute focal pn eumonia, edema, significant effusion or pneumothorax. Impression: 1: No acute cardiopulmonary disease. Reviewed, dictated and finalized at location L. Impression: 1: No acute cardiopulmonary disease.
--- NOTE | 2022-07-11 10:50 | ECG_ITS ---
Measurements Intervals [place] Rate: 82 P: 57 NH: 128 QRS: -7 QRSD: 78 T: 13 QT: 371 QTc: 434 Interpretive Statements SINUS RHYTHM BORDERLINE ST-T WAVE ABNORMALITY- DIFFUSE LEADS BASELINE ARTIFACT- I, II, III, AVR, AVL, AVF, V4-V6 BORDERLINE ECG COMPARED TO ECG 06/07/2022 22:22:30 NO SIGNIFICANT CHANGES Electronically Signed On 07-11-2022 10:55:52 CDT by Vick Goldberg D.O.
[2022-07-11 11:10] LABS: Basophils Percent Auto 0.6 % (0.2-1.2); Eosinophils Absolute Auto 0.1 K/mm3 (0-0.3); Eosinophils Percent Auto 1.8 % (0-4.4); Hematocrit 36.1 % (37.0-47.0); Hemoglobin 11.2 g/dL (12.0-15.0); Immature Granulocyte Absolute 0.01 K/mm3 (0.00-0.031); Immature Granulocyte Percent A 0.1 % (0-0.5); Lymphocytes Absolute Auto 2.65 K/mm3 (0.9-3.2); Lymphocytes Percent Auto 36.5 % (18.3-44.2); Mean Corpuscular Volume 93.5 fl (80-100); Mean Platelet Volume 10.2 fl (7.4-10.4); Monocytes Absolute Auto 0.4 K/mm3 (0.1-0.6); Monocytes Percent Auto 5.1 % (2.6-8.5); Neutrophils Absolute Auto 4.1 K/mm3 (1.3-6.7); Neutrophils Percent Auto 55.9 % (45.5-73.1); Platelet Count Result 198 k/mm3 (150-375); Red Blood Count 3.86 M/mm3 (4.2-5.4); Red Cell Distribution Width 17.3 % (11.5-14.5); White Blood Count 7.3 K/mm3 (4.5-10.0)
[2022-07-11 11:25] LABS: Alanine Aminotransferase 13 U/L (6-35); Albumin Level 3.9 g/dL (3.5-5.1); Alkaline Phosphatase 56 U/L (38-126); Anion Gap 6 mmol/L (8-16); Aspartate Amino Transferase 24 U/L (14-36); Bilirubin,Total 0.3 mg/dL (0.2-1.3); Blood Urea Nitrogen 32 mg/dL (7-17); Calcium 8.4 mg/dL (8.4-10.2); Carbon Dioxide 32 mmol/L (22-30); Chloride 105 mmol/L (98-107); Estimated CRCL calculation 24 ml/min; Estimated Glomerular Filt Rate 43; Glucose 101 mg/dL (65-110); Potassium 4.3 mmol/L (3.4-5.0); Sodium 143 mmol/L (137-145)
[2022-07-11 12:31] LABS: Influenza A QL RT-PCR Negative (Negative); Influenza B QL RT-PCR Negative (Negative); RSV RNA, RT-PCR Negative (Negative); SARS-CoV-2 RNA PCR Negative (Negative)
--- NOTE | 2022-07-11 13:00 | PC.NURSE ---
Assumed care of pt at 1300. Report from PHONG Love
--- NOTE | 2022-07-11 13:10 | ED.GENADULT ---
HPI - General Adult General Chief complaint: Shortness of Breath/Dyspnea Stated complaint: COUGH Time Seen by Provider: 07/11/22 10:57 History of Present Illness HPI narrative: 82-year-old female presented emerged department for evaluation of increased phlegm production and cough. Family states that at the care facility this morning patient was drinking orange juice and began coughing. Family states that the patient was bringing up a lot of phlegm. Patient does have a history of COPD. Upon arrival to emergency department patient's coughing has resolved. Related Data Home Medications Medication Instructions Recorded Confirmed pravastatin 40 mg tablet 40 mg PO HS 04/10/20 11/18/20 potassium chloride 10 mEq 10 meq PO DAILY 11/18/20 11/18/20 capsule,extended release spironolactone 25 mg tablet 25 mg PO DAILY 11/18/20 11/18/20 Allergies Allergy/AdvReac Type Severity Reaction Status Date / Time No Known Allergies Allergy Verified 06/07/22 22:11 Review of Systems Review of Systems: All systems reviewed & are unremarkable except as noted in HPI and below PMFSH Past Medical History Medical History Anxiety and depression Benign essential hypertension Chronic obstructive pulmonary disease Dementia Mixed hyperlipidemia Osteoporosis Personal history of nicotine dependence Primary osteoarthritis involving multiple joints Vitamin D deficiency Surgical History Surgical History History of bilateral breast implants History of hysterectomy Family History Family History Mother Family history of heart disease in male family member before age 55 Social History Social History Social History: Surrogate decision maker: Randy Head, son. Code status: Full code. Smoking packs per day: 1 Smoking cigarettes per day: 20.0 Years smoked: 59 Smoking pack-years: 59.00 Smoking status: Former smoker Tobacco type: cigarettes Alcohol intake: never Substance use: never Additional living arrangements comments: [facility] Additional occupation/education comments: Retired Exam Narrative: APPEARANCE: Well appearing, no pain, no distress, well-nourished. HEAD: normocephalic, atraumatic. EYES: PERRLA/EOMI, conjunctivae clear. NOSE: Normal no drainage EARS:TMS clear with good light reflex. THROAT: Pharynx clear, no exudate. NECK: Supple. No adenopathy, no masses. RESPIRATORY: Airway patent, respirations nonlabored. Clear to auscultation bilaterally, no rales, rhonchi, wheezing. CARDIOVASCULAR: Regular rate and rhythm without murmurs rubs or gallops. ABDOMINAL: Soft, nontender, nondistended, normal bowel sounds MUSCULOSKELETAL: Moves all extremities. Strength/ROM intact, No edema, No calf tenderness. NEURO: Alert. Cranial nerves II through XII intact. Grossly intact SKIN: Warm, dry. Normal Color Course Course Emergency Course: 82-year-old female presented to ED for evaluation of cough and congestion. Patient was afebrile with no leukocytosis. Patient had a pulse ox that was 95% on room air. Patient was negative for RSV influenza and for COVID. Chest x-ray showed no acute cardiopulmonary abnormality. Patient denies any complaints at this time. Patient and family were updated on the results of the work-up. Patient's coughing episode may have been secondary to a minor aspiration and triggered a bronchospasm. Patient was treated with and albuterol nebulizer in route. Patient does have an albuterol inhaler that she uses at the care facility but does not use a spacer AeroChamber. This change in administration will be recommended to staff. Vital Signs Vital signs: Vital Signs Temperature 98.2 F 07/11/22 10:38 Pulse Rate 83 07/11/22 10:38 Respiratory Rate 18
--- NOTE | 2022-07-11 13:13 | PC.NURSE ---
Patient report given to PHONG Fernández. All questions answered and care of patient transferred.
--- NOTE | 2022-07-11 13:40 | PC.NURSE ---
Assume care for pt. Report from PHONG Love
== END 2022-07-11 13:55 ==
PROVIDERS: Emergency Provider Emergency Medicine; PCP Internal Medicine
DX: R05.9 Cough, unspecified (principal); Z20.822 Contact with and (suspected) exposure to COVID-19; F03.90 Unspecified dementia, unspecified severity, without behavioral disturbance, psychotic disturbance, mood disturbance, and anxiety; J44.9 Chronic obstructive pulmonary disease, unspecified; I10 Essential (primary) hypertension; E78.2 Mixed hyperlipidemia; E55.9 Vitamin D deficiency, unspecified; M81.0 Age-related osteoporosis without current pathological fracture; M19.90 Unspecified osteoarthritis, unspecified site; Z90.710 Acquired absence of both cervix and uterus; Z87.891 Personal history of nicotine dependence
CPT/HCPCS: 36415; 71045; 80053; 85025; 87637; 93005; 94664; 99284

== ENCOUNTER 2022-09-13 22:53 | Inpatient (IN) | payer MEDICARE, SELFPAY ==
--- NOTE | ~2022-09-13 | XR_ITS ---
XR chest 1V DATE: 09/13/2022 23:27 INDICATION: Shortness of breath TECHNIQUE: Portable AP chest on 09/13/2022 at 2323 hours COMPARISON: 07/11/2022 portable AP chest at 1118 hours FINDINGS: Bilateral hyperinflation, suggesting obstructive airways disease. Mild bibasilar infiltrate or atelectasis is suggested, right greater than left. The lungs otherwise appear clear. Heart size is within normal range. There is aortic calcification and tortuosity. Moderate hiatal jono ia. Diffuse osteopenia. Prominent osteoarthritic change at the left glenohumeral joint dextroscoliosis an d degenerative spurring of the thoracic spine. IMPRESSION: Moderate hyperinflation suggesting obstructive airways disease Mild infiltrate or atelectasis is suggested at the lung bases, right greater than left Aortic atherosclerosis Hiatal hernia Reviewed, dictated and finalized at location [facility]. IMPRESSION: Moderate hyperinflation suggesting obstructive airways disease Mild infiltrate or atelectasis is suggested at the lung bases, right greater th an left Aortic atherosclerosis Hiatal hernia
--- NOTE | ~2022-09-13 | CT_ITS ---
EXAMINATION: CT brain wo con DATE: 09/14/2022 14:04 INDICATION: Lethargy TECHNIQUE: Computed tomography (CT) of the head was performed without intravenous contrast. The mA wa s adjusted according to patient size. Iterative reconstruction technique was employed. Exam dose: 68 1.00 mGy-cm total exam DLP. COMPARISON: June 07, 2022 CT brain FINDINGS: There is prominent central and cortical cerebral atrophy. There is nonspecific diminished attenuation of the cerebral white matter, likely due to chronic small vessel ischemic changes. Bilateral carotid siphon internal carotid artery calcifications are noted. No intracranial mass lesion or hemorrhage or cerebrovascular accident is evident. No midline shift or mass effect effect or subdural or epidural hematoma is detected The mastoid air cells and paranasal sinuses are normally developed and aerated. No fracture or bone destruction of the cranial vault. IMPRESSION: No skull fracture or acute intracranial finding Cerebral atherosclerosis and chronic small vessel ischemic changes of the cerebral white matter Central and cortical cerebral atrophy Reviewed, dictated and finalized at [facility]. Reviewed, dictated and finalized at location A. IMPRESSION: No skull fracture or acute intracranial finding Cerebral atherosclerosis and chronic small vessel ischemic changes of the cereb ral white matter Central and cortical cerebral atrophy
--- NOTE | ~2022-09-13 | XR_ITS ---
EXAMINATION: XR barium swallow modified DATE: 09/15/2022 13:01 INDICATION: Pneumonia. Possible aspiration.. TECHNIQUE: The patient was given barium-containing material of multiple consistencies to swallow by zaina marie speech pathologist while I performed fluoroscopy. Dose-area product was 0.732 Gy-cm2. 1.8 minutes fluoroscopy time FINDINGS: Oral Stage: Limited by dentures. Pharyngeal Phase: Reduced laryngeal elevation, reduced laryngeal adduction Reduced tongue base retraction and reduced pharyngeal squeeze Piriform sinus residue Laryngeal penetration with mildly thick and pureed without upper denture Aspiration with thin liquids and mildly thick fluid with upper denture Cervical/Esophageal Stage: Within functional limits IMPRESSION: Modified esophagram findings as above. Please refer to the speech therapy report for [facility] recommendations. Reviewed, dictated and finalized at [facility]. Reviewed, dictated and finalized at location A. IMPRESSION: Modified esophagram findings as above. Please refer to the speech t herapy report for specific recommendations.
--- NOTE | ~2022-09-13 | CT_ITS ---
EXAMINATION: CTA chest PE protocol DATE: 09/14/2022 06:10 INDICATION: Shortness of breath TECHNIQUE: Computed tomography angiography (CTA) of the chest was performed with 100 mL Omnipaque-350 intravenous contrast timed to evaluate the pulmonary arteries. Coronal maximum intensity projection 3D-reconstructions were created by the technologist. Automated exposure control and iterative reconst ruction technique were employed. Exam dose: 290.46 mGy-cm total exam DLP. COMPARISON: 09/05/2022 portable AP chest 11/19/2020 CT chest FINDINGS: Examination is limited due to motion. No pulmonary embolism is evident. No thoracic aortic aneurysm or dissection is noted. Fusiform approximately 3 cm infrarenal abdominal aortic aneurysm. Heart size is within normal range. No pericardial or pleural effusion. No hilar or mediastinal mass lesion or adenopathy is noted. Moderately large hiatal hernia. There are emphysematous changes of the lungs.. There is patchy infiltrate in the right lower lobe whi ch may be due to pneumonia or aspiration pneumonitis. Bilateral breast implants. No adrenal mass lesion is evident. There is a prominent amount of fecal material in the colon. Prominent thoracic levoscoliosis. Prominent degenerative changes of the cervical, thoracic and lumbar spine. Osteoarthritic changes at the glenohumeral joints, especially prominent on the left. Old healed posterior lower left rib fractures. IMPRESSION: Limited examination due to motion. No apparent pulmonary embolism Emphysema Patchy right lower lobe infiltrates; diffusion diagnosis includes pneumonia, aspiration pneumonitis Moderately large hiatal hernia Reviewed, dictated and finalized at [facility]. Reviewed, dictated and finalized at location A. IMPRESSION: Limited examination due to motion. No apparent pulmonary embolism Emphysema Patchy right lower lobe infiltrates; diffusion diagnosis includes pneumonia, as piration pneumonitis Moderately large hiatal hernia
[2022-09-13 22:54] VITALS: BP 146/81; PULSE 98; RESP 25; TEMP 37.2; O2SAT 96
--- NOTE | 2022-09-13 23:03 | ECG_ITS ---
Measurements Intervals [place] Rate: 97 P: 59 NV: 135 QRS: 35 QRSD: 82 T: -23 QT: 331 QTc: 421 Interpretive Statements SINUS RHYTHM BORDERLINE ST-T WAVE ABNORMALITY- DIFFUSE LEADS BASELINE ARTIFACT- I, II, III, AVR, AVL, AVF, V1-V6 BORDERLINE ECG COMPARED TO ECG 07/11/2022 10:53:40 NO SIGNIFICANT CHANGES Electronically Signed On 09-14-2022 8:49:35 CDT by Vick Goldberg D.O.
[2022-09-13 23:07] VITALS: O2SAT 95
[2022-09-13 23:16] LABS: Basophils Percent Auto 0.1 % (0.2-1.2); Eosinophils Percent Auto 0.1 % (0-4.4); Hematocrit 32.2 % (37.0-47.0); Hemoglobin 10.3 g/dL (12.0-15.0); Immature Granulocyte Absolute 0.06 K/mm3 (0.00-0.031); Immature Granulocyte Percent A 0.4 % (0-0.5); Lymphocytes Absolute Auto 1.38 K/mm3 (0.9-3.2); Lymphocytes Percent Auto 9.1 % (18.3-44.2); Mean Corpuscular Hemoglobin 28.5 pg (26-34); Mean Corpuscular Volume 89.2 fl (80-100); Mean Platelet Volume 10.4 fl (7.4-10.4); Monocytes Absolute Auto 0.9 K/mm3 (0.1-0.6); Monocytes Percent Auto 6.1 % (2.6-8.5); Neutrophils Absolute Auto 12.8 K/mm3 (1.3-6.7); Neutrophils Percent Auto 84.2 % (45.5-73.1); Platelet Count Result 175 k/mm3 (150-375); Red Blood Count 3.61 M/mm3 (4.2-5.4); Red Cell Distribution Width 15.2 % (11.5-14.5); White Blood Count 15.2 K/mm3 (4.5-10.0)
[2022-09-13 23:26] LABS: Alanine Aminotransferase 15 U/L (6-35); Albumin Level 3.9 g/dL (3.5-5.1); Alkaline Phosphatase 55 U/L (38-126); Anion Gap 4 mmol/L (8-16); Aspartate Amino Transferase 25 U/L (14-36); Bilirubin,Total 0.3 mg/dL (0.2-1.3); Blood Urea Nitrogen 28 mg/dL (7-17); Calcium 8.2 mg/dL (8.4-10.2); Carbon Dioxide 26 mmol/L (22-30); Chloride 99 mmol/L (98-107); Estimated CRCL calculation 29 ml/min; Estimated Glomerular Filt Rate 48; Glucose 118 mg/dL (65-110); Potassium 4.3 mmol/L (3.4-5.0); Sodium 129 mmol/L (137-145)
[2022-09-13 23:58] LABS: Alveolar/Arterial O2 Gradient 93.1 mmHg; Device NASAL CANNULA; Fractional Inspired Oxygen 28 %; HCO3 ABG 24.1 mEq/l (22.0-26.0); Oxygen Content ABG 14.5 %vol (16.0-22.0); Oxygen Saturation ABG 94.9 % (95.0-100.0); PCO2 ABG 32.9 mmHg (35.0-45.0); PO2 ABG 67.7 mmHg (80.0-100.0); PO2 FiO2 Ratio Arterial Blood 2.42 %; Site Drawn RIGHT BRACHIAL; Total Hemoglobin 11.2 g/dL (12.0-18.0); pH ABG 7.482 (7.350-7.450)
[2022-09-14] VITALS (38 sets, daily range): BP systolic 105–138; BP diastolic 55–89; PULSE 79–98; RESP 12–27; TEMP 35.9–36.4; O2SAT 92–100; BMI 20.5
[2022-09-14 00:40] LABS: Lactic Acid Reflex 0.8 mmol/L (0.7-2.0); Magnesium 2.1 mg/dL (1.6-2.3)
[2022-09-14 00:44] LABS: INR 1.1; Prothrombin Time 14.7 Seconds (11.1-14.7)
[2022-09-14 00:53] LABS: NT Pro B Type Natriuretic Pept 805 pg/mL (19.9-100); Troponin I < 0.012 ng/mL (0.000-0.034)
[2022-09-14 01:01] LABS: Appearance Urine Cloudy (Clear); Bacteria Urine 4+ /hpf; Bilirubin Urine Negative (Negative); Blood Urine Negative (Negative); Color Urine Yellow (Yellow); Glucose Urine UA Negative (Negative); Ketones Urine Negative (Negative); Leukocyte Esterase Ur Negative LEU/UL (Negative); Need Manual Microscopic Reviewed; Nitrate Urine Positive (Negative); Non Pathogenic Casts 0-2; Protein Urine Negative (Negative); Specific Grav Ur 1.013 (1.001-1.035); Squamous Epithelial Cell Urine None seen /hpf (Few); Urobilinogen Urine 0.2 mg/dL (<2.0); WBC Urine 0-5 /hpf; pH Urine 5.5 (5.0-9.0)
[2022-09-14 01:20] LABS: Add Urine Microscopic? YES
[2022-09-14 01:24] LABS: Procalcitonin 0.1 ng/mL
[2022-09-14 04:11] LABS: Troponin I < 0.012 ng/mL (0.000-0.034)
--- NOTE | 2022-09-14 07:31 | ED.GENADULT ---
HPI - General Adult General Chief complaint: Shortness of Breath/Dyspnea <Elmo Adkins MD - Last Filed: 09/14/22 07:34> Stated complaint: LOW SPO2, LABORED BREATHING <Elmo Adkins MD - Last Filed: 09/14/22 07:34> Time Seen by Provider: 09/13/22 23:09 <Elmo Adkins MD - Last Filed: 09/14/22 07:34> History of Present Illness HPI narrative: Patient 82-year-old female who presents emerged department with chief complaint of shortness of breath. The patient is from a local nursing facility and has history of COPD and hypoxia patient staff found the patient with her oxygen levels in the 80s they placed her on oxygen give her a breathing treatment and transferred to the emergency department for evaluation currently the patient has no real complaint but does have history of dementia and history is limited due to this <Elmo Adkins MD - Last Filed: 09/14/22 07:34> Related Data Home medications: Home Medications Medication Instructions Recorded Confirmed pravastatin 40 mg tablet 40 mg PO HS 04/10/20 09/14/22 potassium chloride 10 mEq 10 meq PO DAILY 11/18/20 09/14/22 capsule,extended release spironolactone 25 mg tablet 25 mg PO DAILY 11/18/20 09/14/22 furosemide 40 mg tablet 40 mg PO DAILY 09/14/22 09/14/22 memantine 5 mg tablet 5 mg PO BID 09/14/22 09/14/22 <Elmo Adkins MD - Last Filed: 09/14/22 07:34> Allergies/adverse reactions: Allergies Allergy/AdvReac Type Severity Reaction Status Date / Time No Known Allergies Allergy Verified 06/07/22 22:11 <Elmo Adkins MD - Last Filed: 09/14/22 07:34> Review of Systems Review of Systems: A 10 system review of systems was completed on the patient and is negative except for what is stated in the HPI. Nursing and ancillary documentation was reviewed. <Elmo Adkins MD - Last Filed: 09/14/22 07:34> [facility] Past Medical History Medical History: Medical History (Updated 09/14/22 @ 14:48 by Chuyita Starks MD) Anxiety and depression Benign essential hypertension Chronic kidney disease, stage 3 Chronic obstructive pulmonary disease Dementia Hiatal hernia Mixed hyperlipidemia Osteoporosis Personal history of nicotine dependence Primary osteoarthritis involving multiple joints Vitamin D deficiency <Elmo Adkins MD - Last Filed: 09/14/22 07:34> Surgical History Surgical History: Surgical History History of bilateral breast implants History of hysterectomy <Elmo Adkins MD - Last Filed: 09/14/22 07:34> Family History Family History: Family History Mother Family history of heart disease in male family member before age 55 <Elmo Adkins MD - Last Filed: 09/14/22 07:34> Social History Social History: Social History (Updated 09/14/22 @ 14:31 by Genesis El PA-C) Social History: Surrogate decision maker: Randy Sonido (son) or Mariam Lewis (sister). Code status: Full code. Smoking packs per day: 1 Smoking cigarettes per day: 20.0 Years smoked: 59 Smoking pack-years: 59.00 Smoking status: Former smoker Alcohol intake: never Substance use: never Additional living arrangements comments: [facility]. Additional occupation/education comments: Retired. Spiritual care concerns: No <Elmo Adkins MD - Last Filed: 09/14/22 07:34> Exam Narrative: GENERAL: Well-appearing, well-nourished, and in no acute distress. HEAD: Normocephalic, atraumatic. EYES: PERRLA and EOMI. ENT: Nares clear, no rhinorrhea or epistaxis. Mucous membranes moist. NECK: Supple. CHEST: Clear to auscultation. No respiratory distress. HEART: Regular rate and rhythm. No murmur heard. Normal peripheral pulses. ABDOMEN: Soft, nontender, nondistended, normal acti
[2022-09-14] MEDS: methylPREDNISolone SOD SUCC 125 MG VIAL IV PUSH (07:44)
[2022-09-14] MEDS: IPRATROPIUM BR 0.02% INH SOLN 0.5 MG/2.5 ML VIAL INHALATION (08:09)
[2022-09-14] MEDS: ALBUTEROL SULFATE NEB 2.5 MG/3 ML INH INHALATION (08:09)
[2022-09-14] MEDS: AZITHROMYCIN 250 MG TABLET 500 MG PO (09:14)
--- NOTE | 2022-09-14 14:27 | PM.IMHP ---
H&P: HPI History of Present Illness Date/Time: 09/14/22 14:30 Chief Complaint: Shortness of breath. Narrative: This is an 82-year-old female with history of dementia, COPD, hypertension, hyperlipidemia, chronic kidney disease, and depression who presented to the emergency department via EMS from a local nursing facility for evaluation of shortness of breath. She is not able to provide an accurate history at this time and thus a majority the following is supplemented via a review of her EMR as well as review of the triage in ED physician notes. Her sister provides additional information and reports that the patient is much more confused than at baseline. This morning she seemed to be short of breath and when her vital signs were checked her SpO2 was reportedly in the 80s. She was placed on oxygen and brought to the ER for evaluation. Chest CTA was limited due to motion artifact though no apparent pulmonary embolism was seen. Patchy right lower lobe infiltrates and a moderately large hiatal hernia were noted. She was started on azithromycin and ceftriaxone and she is being admitted in this setting for further care. At the time my evaluation she is resting and has no specific complaints aside from the fact that she does not feel well however she cannot further elaborate. She reports chills and a bit of a cough. She denies headache, sore throat, chest pain, shortness a breath, abdominal pain, nausea, vomiting, and diarrhea. She does not think she has issues with swallowing and denies dysphagia. Review of Systems Review of Systems: Reviewed and are negative though limited given her confusion. [facility] Past Medical History Medical History Anxiety and depression Benign essential hypertension Chronic kidney disease, stage 3 Chronic obstructive pulmonary disease Dementia Hiatal hernia Mixed hyperlipidemia Osteoporosis Personal history of nicotine dependence Primary osteoarthritis involving multiple joints Vitamin D deficiency Surgical History Surgical History History of bilateral breast implants History of hysterectomy Family History Family History Mother Family history of heart disease in male family member before age 55 Social History Social History (Updated 09/14/22 @ 21:13 by Genesis El PA-C) Social History: Surrogate decision maker: Randy Head (son) or Mariam Lewis (sister). Code status: Do not resuscitate. Smoking packs per day: 1 Smoking cigarettes per day: 20.0 Years smoked: 59 Smoking pack-years: 59.00 Smoking status: Former smoker Alcohol intake: never Substance use: never Additional living arrangements comments: [facility]. Additional occupation/education comments: Retired. Spiritual care concerns: No Meds Home Medications and Allergies Home Medications Medication Instructions Recorded Confirmed Type raloxifene 60 mg tablet (Evista) 60 mg PO DAILY #90 tabs 04/05/19 09/14/22 Rx fluticasone furoate 100 1 inh inhalation DAILY #28 ea 12/13/19 09/14/22 Rx mcg-vilanterol 25 mcg/dose inhalation powder (Breo Ellipta) venlafaxine 150 mg 150 mg PO DAILY #90 caps 01/24/20 09/14/22 Rx capsule,extended release 24 hr pravastatin 40 mg tablet 40 mg PO HS 04/10/20 09/14/22 History losartan 100 mg tablet 100 mg PO DAILY #90 tabs 04/14/20 09/14/22 Rx potassium chloride 10 mEq 10 meq PO DAILY 11/18/20 09/14/22 History capsule,extended release spironolactone 25 mg tablet 25 mg PO DAILY 11/18/20 09/14/22 History furosemide 40 mg tablet 40 mg PO DAILY 09/14/22 09/14/22 History memantine 5 mg tablet 5 mg PO BID 09/14/22 09/14/22 History Allergies Allergy/AdvReac Type Severity Reaction Status Date / Time No Known Allergies Allergy Verified 06/07/22 22:11 Vital Signs Vital Signs - 24 hr
[2022-09-14] MEDS: SODIUM CHLORIDE 0.9% IV 1,000 ML 150 ML IV CONT (16:18)
[2022-09-14 16:45] LABS: Thyroid Stimulating Hormone Reflex 0.684 uIU/mL (0.465-4.68)
[2022-09-14] MEDS: MEMANTINE 5 MG TABLET PO (17:56)
[2022-09-14] MEDS: PRAVASTATIN SODIUM 20 MG TABLET 40 MG PO (20:04)
[2022-09-14] MEDS: FLUTICASONE/SALMETEROL 115-21 MCG INHALER 1 PUFF 2 PUFF INHALATION (21:51)
[2022-09-14 22:03] LABS: Anion Gap 5 mmol/L (8-16); Blood Urea Nitrogen 22 mg/dL (7-17); Calcium 8.2 mg/dL (8.4-10.2); Carbon Dioxide 27 mmol/L (22-30); Chloride 106 mmol/L (98-107); Estimated CRCL calculation 31 ml/min; Estimated Glomerular Filt Rate 53; Glucose 117 mg/dL (65-110); Potassium 4.5 mmol/L (3.4-5.0); Sodium 138 mmol/L (137-145)
--- NOTE | 2022-09-14 22:04 | PC.NURSE ---
collected all urine samples
[2022-09-14 22:17] LABS: Creatinine Urine 66.9 mg/dL
[2022-09-14 22:18] LABS: Sodium Urine Random 22 meq/L
[2022-09-15] VITALS (9 sets, daily range): BP systolic 98–117; BP diastolic 44–57; PULSE 78–95; RESP 16–18; TEMP 35.7–36.1; O2SAT 92–100
[2022-09-15] MEDS: FLUTICASONE/SALMETEROL 115-21 MCG INHALER 1 PUFF 2 PUFF INHALATION ×2 (07:35→20:09)
--- NOTE | 2022-09-15 08:48 | PM.IMPN ---
Progress Note: A&P Assessment and Plan (1) Pneumonia: Code(s): J18.9 - Pneumonia, unspecified organism Status: Acute Assessment and Plan: CT concerns with right lower lobe infiltrate New oxygen requirement Lung sounds diminished slightly coarse to right lower base leukocytosis of 15 on admission Started on ceftriaxone and azithromycin Blood cultures pending (2) Hyponatremia: Code(s): E87.1 - Hypo-osmolality and hyponatremia Status: Acute Assessment and Plan: Sodium on admission was 129. Today 138 after IV fluids. Spironolactone was held (3) Abnormal urinalysis: Code(s): R82.90 - Unspecified abnormal findings in urine Status: Acute Assessment and Plan: UTI on UA with nitrates Culture pending Started on Rocephin Likely contributory to AMS (4) Chronic kidney disease, stage 3: Code(s): N18.30 - Chronic kidney disease, stage 3 unspecified Status: Acute Assessment and Plan: Baseline creatinine approximately 1.2-1.1 Creatinine 1 on a.m. labs (5) Benign essential hypertension: Code(s): I10 - Essential (primary) hypertension Status: Acute Assessment and Plan: Blood pressures reviewed and are stable SBP ranging 90s to 117 over 40s 50s Spironolactone and losartan held (6) Mixed hyperlipidemia: Code(s): E78.2 - Mixed hyperlipidemia Status: Acute Assessment and Plan: Stable on pravastatin (7) Anxiety and depression: Code(s): F41.9 - Anxiety disorder, unspecified; F32.9 - Major depressive disorder, single episode, unspecified Status: Acute Assessment and Plan: Also with dementia diagnosis Taking from memantine 5 mg p.o. b.i.d. as well as venlafaxine (8) Chronic obstructive pulmonary disease: Code(s): J44.9 - Chronic obstructive pulmonary disease, unspecified Status: Acute Assessment and Plan: Inhalers reordered Does not appear to be on baseline oxygen at home Now requiring 2 L Subjective Date/time seen: 09/15/22 08:48 Interval history: Chief Complaint: Shortness of breath. Narrative: This is an 82-year-old female with history of dementia, COPD, hypertension, hyperlipidemia, chronic kidney disease, and depression who presented to the emergency department via EMS from a local nursing facility for evaluation of shortness of breath. She is not able to provide an accurate history at this time and thus a majority the following is supplemented via a review of her EMR as well as review of the triage in ED physician notes. Her sister provides additional information and reports that the patient is much more confused than at baseline. This morning she seemed to be short of breath and when her vital signs were checked her SpO2 was reportedly in the 80s. She was placed on oxygen and brought to the ER for evaluation. Chest CTA was limited due to motion artifact though no apparent pulmonary embolism was seen. Patchy right lower lobe infiltrates and a moderately large hiatal hernia were noted. She was started on azithromycin and ceftriaxone and she is being admitted in this setting for further care. At the time my evaluation she is resting and has no specific complaints aside from the fact that she does not feel well however she cannot further elaborate. She reports chills and a bit of a cough. She denies headache, sore throat, chest pain, shortness a breath, abdominal pain, nausea, vomiting, and diarrhea. She does not think she has issues with swallowing and denies dysphagia. 09/15: Seen resting in bed drinking her coffee. She is alert and oriented to person only. She says that she denies pain and she does not know why she is here. Reoriented her and updated her on the plan of care for treatment of questionable pneumonia and positive UTI. ROS is difficult to complete because when I ask her if she is having any urinary symptoms, shortness of breath, productive cough, etc. she says she does no
[2022-09-15 08:55] LABS: Basophils Percent Auto 0.3 % (0.2-1.2); Hematocrit 32.5 % (37.0-47.0); Hemoglobin 9.8 g/dL (12.0-15.0); Immature Granulocyte Absolute 0.02 K/mm3 (0.00-0.031); Immature Granulocyte Percent A 0.3 % (0-0.5); Lymphocytes Absolute Auto 1.21 K/mm3 (0.9-3.2); Lymphocytes Percent Auto 15.8 % (18.3-44.2); Mean Corpuscular HGB Conc 30.2 g/dl (32-36); Mean Corpuscular Hemoglobin 28.7 pg (26-34); Mean Corpuscular Volume 95.3 fl (80-100); Mean Platelet Volume 10.2 fl (7.4-10.4); Monocytes Absolute Auto 0.5 K/mm3 (0.1-0.6); Monocytes Percent Auto 6.4 % (2.6-8.5); Neutrophils Absolute Auto 5.9 K/mm3 (1.3-6.7); Neutrophils Percent Auto 77.2 % (45.5-73.1); Platelet Count Result 145 k/mm3 (150-375); Red Blood Count 3.41 M/mm3 (4.2-5.4); Red Cell Distribution Width 15.4 % (11.5-14.5); White Blood Count 7.7 K/mm3 (4.5-10.0)
[2022-09-15] MEDS: MEMANTINE 5 MG TABLET PO ×2 (08:57→17:54)
[2022-09-15] MEDS: RALOXIFENE HCL (*CHEMO) 60 MG TABLET PO (08:58)
[2022-09-15] MEDS: FUROSEMIDE 40 MG TABLET PO (08:58)
[2022-09-15] MEDS: LOSARTAN POTASSIUM 100 MG TABLET PO (08:58)
[2022-09-15] MEDS: POTASSIUM CHLORIDE 10 MEQ ER TABLET PO (08:58)
[2022-09-15] MEDS: VENLAFAXINE HCL XR 75 MG CAP.ER.24H 150 MG PO (08:58)
[2022-09-15] MEDS: ENOXAPARIN 30 MG/0.3 ML SYRINGE SUB-Q (09:08)
[2022-09-15] MEDS: AZITHROMYCIN 500 MG/NS 250 ML 500 MG/250 ML BAG 250 MG IVPB (09:17)
[2022-09-15 09:38] LABS: Burr Cells 1+ (NORMAL); Platelet Estimate Adequate (Adequate); Schistocytes None Seen (NORMAL)
--- NOTE | 2022-09-15 13:26 | PCSTNOTE ---
Modified barium swallow study: Patient was evaluated both with upper denture in place and then without. Results reveal aspiration with thin liquids and mildly thick liquids with denture in place. Without denture, patient did not aspirate mildly thick liquids. Penetration occurred with both midly thick liquids and pureed liquids but was reduced with chin tuck, multiple swallow, and forceful swallow. Recommendations: Patient should not wear dentures when eating. Minced moist diet with mildly thickened liquids are recommended. Swallowing precaution recommendation placed in chart. Thank you for the referral of this patient.
[2022-09-15] MEDS: PRAVASTATIN SODIUM 20 MG TABLET 40 MG PO (20:10)
[2022-09-16] VITALS (10 sets, daily range): BP systolic 104–136; BP diastolic 52–62; PULSE 61–88; RESP 13–16; TEMP 35.9–36.9; O2SAT 88–99
[2022-09-16 07:00] LABS: Basophils Percent Auto 0.3 % (0.2-1.2); Eosinophils Percent Auto 0.4 % (0-4.4); Hematocrit 28.8 % (37.0-47.0); Hemoglobin 8.9 g/dL (12.0-15.0); Immature Granulocyte Absolute 0.02 K/mm3 (0.00-0.031); Immature Granulocyte Percent A 0.3 % (0-0.5); Lymphocytes Absolute Auto 0.96 K/mm3 (0.9-3.2); Lymphocytes Percent Auto 13.9 % (18.3-44.2); Mean Corpuscular HGB Conc 30.9 g/dl (32-36); Mean Corpuscular Hemoglobin 28.8 pg (26-34); Mean Corpuscular Volume 93.2 fl (80-100); Mean Platelet Volume 10.1 fl (7.4-10.4); Monocytes Absolute Auto 0.4 K/mm3 (0.1-0.6); Monocytes Percent Auto 6.4 % (2.6-8.5); Neutrophils Absolute Auto 5.4 K/mm3 (1.3-6.7); Neutrophils Percent Auto 78.7 % (45.5-73.1); Platelet Count Result 147 k/mm3 (150-375); Red Blood Count 3.09 M/mm3 (4.2-5.4); Red Cell Distribution Width 15.5 % (11.5-14.5); White Blood Count 6.9 K/mm3 (4.5-10.0)
[2022-09-16 07:11] LABS: Alanine Aminotransferase 15 U/L (6-35); Albumin Level 3.2 g/dL (3.5-5.1); Alkaline Phosphatase 45 U/L (38-126); Anion Gap 2 mmol/L (8-16); Aspartate Amino Transferase 27 U/L (14-36); Bilirubin,Total 0.3 mg/dL (0.2-1.3); Blood Urea Nitrogen 23 mg/dL (7-17); Calcium 7.9 mg/dL (8.4-10.2); Carbon Dioxide 27 mmol/L (22-30); Chloride 104 mmol/L (98-107); Estimated CRCL calculation 31 ml/min; Estimated Glomerular Filt Rate 53; Glucose 85 mg/dL (65-110); Potassium 3.7 mmol/L (3.4-5.0); Sodium 133 mmol/L (137-145)
--- NOTE | 2022-09-16 07:36 | PM.IMPN ---
Progress Note: A&P Assessment and Plan (1) Pneumonia: Code(s): J18.9 - Pneumonia, unspecified organism Status: Acute Assessment and Plan: CT concerns with right lower lobe infiltrate New oxygen requirement Lung sounds diminished slightly coarse to right lower base leukocytosis of 15 on admission Started on ceftriaxone and azithromycin Blood cultures NGTD (2) Hyponatremia: Code(s): E87.1 - Hypo-osmolality and hyponatremia Status: Acute Assessment and Plan: Sodium on admission was 129. Today 138 after IV fluids. Spironolactone was held (3) Abnormal urinalysis: Code(s): R82.90 - Unspecified abnormal findings in urine Status: Acute Assessment and Plan: UTI on UA with nitrates Culture with mixed genital alycia Started on Rocephin Likely contributory to AMS (4) Chronic kidney disease, stage 3: Code(s): N18.30 - Chronic kidney disease, stage 3 unspecified Status: Acute Assessment and Plan: Baseline creatinine approximately 1.2-1.1 Creatinine 1 on a.m. labs (5) Benign essential hypertension: Code(s): I10 - Essential (primary) hypertension Status: Acute Assessment and Plan: Blood pressures reviewed and are stable SBP ranging 90s to 117 over 40s 50s Spironolactone and losartan held (6) Mixed hyperlipidemia: Code(s): E78.2 - Mixed hyperlipidemia Status: Acute Assessment and Plan: Stable on pravastatin (7) Anxiety and depression: Code(s): F41.9 - Anxiety disorder, unspecified; F32.9 - Major depressive disorder, single episode, unspecified Status: Acute Assessment and Plan: Also with dementia diagnosis Taking from memantine 5 mg p.o. b.i.d. as well as venlafaxine (8) Chronic obstructive pulmonary disease: Code(s): J44.9 - Chronic obstructive pulmonary disease, unspecified Status: Acute Assessment and Plan: Inhalers reordered Does not appear to be on baseline oxygen at home Now requiring 2 L Plan wean oxygen hopefully can DC back to the facility tomorrow on p.o. antibiotics Subjective Date/time seen: 09/16/22 07:36 Interval history: Chief Complaint: Shortness of breath. Narrative: This is an 82-year-old female with history of dementia, COPD, hypertension, hyperlipidemia, chronic kidney disease, and depression who presented to the emergency department via EMS from a local nursing facility for evaluation of shortness of breath. She is not able to provide an accurate history at this time and thus a majority the following is supplemented via a review of her EMR as well as review of the triage in ED physician notes. Her sister provides additional information and reports that the patient is much more confused than at baseline. This morning she seemed to be short of breath and when her vital signs were checked her SpO2 was reportedly in the 80s. She was placed on oxygen and brought to the ER for evaluation. Chest CTA was limited due to motion artifact though no apparent pulmonary embolism was seen. Patchy right lower lobe infiltrates and a moderately large hiatal hernia were noted. She was started on azithromycin and ceftriaxone and she is being admitted in this setting for further care. At the time my evaluation she is resting and has no specific complaints aside from the fact that she does not feel well however she cannot further elaborate. She reports chills and a bit of a cough. She denies headache, sore throat, chest pain, shortness a breath, abdominal pain, nausea, vomiting, and diarrhea. She does not think she has issues with swallowing and denies dysphagia. 09/15: Seen resting in bed drinking her coffee. She is alert and oriented to person only. She says that she denies pain and she does not know why she is here. Reoriented her and updated her on the plan of care for treatment of questionable pneumonia and positive UTI. ROS is difficult to complete because when I ask
[2022-09-16] MEDS: FLUTICASONE/SALMETEROL 115-21 MCG INHALER 1 PUFF 2 PUFF INHALATION ×2 (07:39→20:50)
[2022-09-16] MEDS: ENOXAPARIN 30 MG/0.3 ML SYRINGE SUB-Q (08:32)
[2022-09-16] MEDS: VENLAFAXINE HCL XR 75 MG CAP.ER.24H 150 MG PO (08:36)
[2022-09-16] MEDS: FUROSEMIDE 40 MG TABLET PO (08:36)
[2022-09-16] MEDS: LOSARTAN POTASSIUM 100 MG TABLET PO (08:37)
[2022-09-16] MEDS: POTASSIUM CHLORIDE 10 MEQ ER TABLET PO (08:37)
[2022-09-16] MEDS: RALOXIFENE HCL (*CHEMO) 60 MG TABLET PO (08:37)
[2022-09-16] MEDS: MEMANTINE 5 MG TABLET PO ×2 (08:37→17:52)
[2022-09-16] MEDS: AZITHROMYCIN 500 MG/NS 250 ML 500 MG/250 ML BAG 250 MG IVPB (09:15)
[2022-09-16] MEDS: PRAVASTATIN SODIUM 20 MG TABLET 40 MG PO (21:18)
[2022-09-17 05:20] VITALS: O2SAT 95
[2022-09-17 06:00] VITALS: BP 118/70; PULSE 81; RESP 13; TEMP 36.5; O2SAT 98
[2022-09-17 06:29] LABS: Basophils Percent Auto 0.4 % (0.2-1.2); Eosinophils Absolute Auto 0.1 K/mm3 (0-0.3); Eosinophils Percent Auto 1.9 % (0-4.4); Hematocrit 29.5 % (37.0-47.0); Hemoglobin 9.1 g/dL (12.0-15.0); Immature Granulocyte Absolute 0.01 K/mm3 (0.00-0.031); Immature Granulocyte Percent A 0.2 % (0-0.5); Lymphocytes Absolute Auto 1.11 K/mm3 (0.9-3.2); Lymphocytes Percent Auto 23.1 % (18.3-44.2); Mean Corpuscular HGB Conc 30.8 g/dl (32-36); Mean Corpuscular Hemoglobin 28.8 pg (26-34); Mean Corpuscular Volume 93.4 fl (80-100); Mean Platelet Volume 10.3 fl (7.4-10.4); Monocytes Absolute Auto 0.4 K/mm3 (0.1-0.6); Monocytes Percent Auto 8.8 % (2.6-8.5); Neutrophils Absolute Auto 3.2 K/mm3 (1.3-6.7); Neutrophils Percent Auto 65.6 % (45.5-73.1); Platelet Count Result 165 k/mm3 (150-375); Red Blood Count 3.16 M/mm3 (4.2-5.4); Red Cell Distribution Width 15.3 % (11.5-14.5); White Blood Count 4.8 K/mm3 (4.5-10.0)
[2022-09-17 06:41] LABS: Alanine Aminotransferase 16 U/L (6-35); Albumin Level 3.2 g/dL (3.5-5.1); Alkaline Phosphatase 47 U/L (38-126); Anion Gap 4 mmol/L (8-16); Aspartate Amino Transferase 27 U/L (14-36); Bilirubin,Total 0.3 mg/dL (0.2-1.3); Blood Urea Nitrogen 17 mg/dL (7-17); Carbon Dioxide 29 mmol/L (22-30); Chloride 106 mmol/L (98-107); Estimated CRCL calculation 34 ml/min; Estimated Glomerular Filt Rate 60; Glucose 78 mg/dL (65-110); Magnesium 2.2 mg/dL (1.6-2.3); Potassium 3.8 mmol/L (3.4-5.0); Sodium 139 mmol/L (137-145)
[2022-09-17] MEDS: FLUTICASONE/SALMETEROL 115-21 MCG INHALER 1 PUFF 2 PUFF INHALATION (06:59)
[2022-09-17 07:10] VITALS: PULSE 79; RESP 16; O2SAT 95
--- NOTE | 2022-09-17 07:36 | PM.DS ---
DS: Admitting Diagnosis Discharge Date September 17Friday Admitting Diagnosis abnormal UA DS: Discharge Diagnosis Discharge Diagnosis (1) Pneumonia: Code(s): J18.9 - Pneumonia, unspecified organism Status: Acute Assessment and Plan: CT concerns with right lower lobe infiltrate New oxygen requirement Lung sounds diminished slightly coarse to right lower base leukocytosis of 15 on admission Started on ceftriaxone and azithromycin Blood cultures NGTD (2) Hyponatremia: Code(s): E87.1 - Hypo-osmolality and hyponatremia Status: Acute Assessment and Plan: Sodium on admission was 129. Today 138 after IV fluids. Spironolactone was held (3) Abnormal urinalysis: Code(s): R82.90 - Unspecified abnormal findings in urine Status: Acute Assessment and Plan: UTI on UA with nitrates Culture with mixed genital alycia Started on Rocephin Likely contributory to AMS (4) Chronic kidney disease, stage 3: Code(s): N18.30 - Chronic kidney disease, stage 3 unspecified Status: Acute Assessment and Plan: Baseline creatinine approximately 1.2-1.1 Creatinine 1 on a.m. labs (5) Benign essential hypertension: Code(s): I10 - Essential (primary) hypertension Status: Acute Assessment and Plan: Blood pressures reviewed and are stable SBP ranging 90s to 117 over 40s 50s Spironolactone and losartan held (6) Mixed hyperlipidemia: Code(s): E78.2 - Mixed hyperlipidemia Status: Acute Assessment and Plan: Stable on pravastatin (7) Anxiety and depression: Code(s): F41.9 - Anxiety disorder, unspecified; F32.9 - Major depressive disorder, single episode, unspecified Status: Acute Assessment and Plan: Also with dementia diagnosis Taking from memantine 5 mg p.o. b.i.d. as well as venlafaxine (8) Chronic obstructive pulmonary disease: Code(s): J44.9 - Chronic obstructive pulmonary disease, unspecified Status: Acute Assessment and Plan: Inhalers reordered Does not appear to be on baseline oxygen at home Now requiring 2 L DS: Summary Hospital Course Hospital Course: Narrative: This is an 82-year-old female with history of dementia, COPD, hypertension, hyperlipidemia, chronic kidney disease, and depression who presented to the emergency department via EMS from a local nursing facility for evaluation of shortness of breath. She is not able to provide an accurate history at this time and thus a majority the following is supplemented via a review of her EMR as well as review of the triage in ED physician notes. Her sister provides additional information and reports that the patient is much more confused than at baseline. This morning she seemed to be short of breath and when her vital signs were checked her SpO2 was reportedly in the 80s. She was placed on oxygen and brought to the ER for evaluation. Chest CTA was limited due to motion artifact though no apparent pulmonary embolism was seen. Patchy right lower lobe infiltrates and a moderately large hiatal hernia were noted. She was started on azithromycin and ceftriaxone and she is being admitted in this setting for further care. At the time my evaluation she is resting and has no specific complaints aside from the fact that she does not feel well however she cannot further elaborate. She reports chills and a bit of a cough. She denies headache, sore throat, chest pain, shortness a breath, abdominal pain, nausea, vomiting, and diarrhea. She does not think she has issues with swallowing and denies dysphagia. 09/15:? Seen resting in bed drinking her coffee.? She is alert and oriented to person only.? She says that she denies pain and she does not know why she is here.? Reoriented her and updated her on the plan of care for treatment of questionable pneumonia and positive UTI.? ROS is difficult to complete because when I ask her if she is having any urinary symptoms, short
[2022-09-17 08:00] VITALS: O2SAT 91
[2022-09-17] MEDS: MEMANTINE 5 MG TABLET PO (09:20)
[2022-09-17] MEDS: VENLAFAXINE HCL XR 75 MG CAP.ER.24H 150 MG PO (09:20)
[2022-09-17] MEDS: ENOXAPARIN 30 MG/0.3 ML SYRINGE SUB-Q (09:20)
[2022-09-17] MEDS: RALOXIFENE HCL (*CHEMO) 60 MG TABLET PO (09:20)
[2022-09-17] MEDS: POTASSIUM CHLORIDE 10 MEQ ER TABLET PO (09:20)
[2022-09-17] MEDS: LOSARTAN POTASSIUM 100 MG TABLET PO (09:20)
[2022-09-17] MEDS: FUROSEMIDE 40 MG TABLET PO (09:21)
[2022-09-17] MEDS: AZITHROMYCIN 500 MG/NS 250 ML 500 MG/250 ML BAG 250 MG IVPB (10:36)
[2022-09-18 05:19] LABS: Legionella pneumophila Ag Ur Not Detected (Not Detected)
[2022-09-18 15:38] LABS: Pneumococcal Antigen Urine Not Detected (Not Detected)
[2022-09-18 21:28] LABS: Osmolality, Urine 432 mOsm/kg (50-1200)
[2022-09-19 13:33] LABS: Mycoplasma IgM Antibody Titer 72 U/mL (<770)
== END 2022-09-17 13:20 | DRG 178 ==
LOC: ANHED 23:09 → ANH3MEDSUR 09-14 09:47
PROVIDERS: Physician Assistant; Admitting Provider Internal Medicine; Emergency Provider Emergency Medicine; PCP Internal Medicine; Visit Provider Nurse Practitioner Acute Care
DX: J69.0 Pneumonitis due to inhalation of food and vomit (principal); E87.1 Hypo-osmolality and hyponatremia; J44.0 Chronic obstructive pulmonary disease with (acute) lower respiratory infection; N18.30 Chronic kidney disease, stage 3 unspecified; I12.9 Hypertensive chronic kidney disease with stage 1 through stage 4 chronic kidney disease, or unspecified chronic kidney disease; E55.9 Vitamin D deficiency, unspecified; E78.2 Mixed hyperlipidemia; K44.9 Diaphragmatic hernia without obstruction or gangrene; M15.9 Polyosteoarthritis, unspecified; M81.0 Age-related osteoporosis without current pathological fracture; F03.90 Unspecified dementia, unspecified severity, without behavioral disturbance, psychotic disturbance, mood disturbance, and anxiety; F32.A Depression, unspecified; F41.9 Anxiety disorder, unspecified
CPT/HCPCS: 36415; 36600; 70450; 71045; 71275; 80048; 80053; 81001; 82570; 82805; 83605; 83735; 83880; 83930; 83935; 84145; 84300; 84443; 84484; 85025; 85610; 85730; 86738; 87040; 87086; 87088; 87449; 87899; 92611; 93005; 94640; 96374; 97161; 97165; 97530; 97535; 99291; A9270; J0456; J0696; J1650; J2930; J7030; Q9967

== ENCOUNTER 2022-12-10 18:57 | Inpatient (IN) | payer MEDICARE, SELFPAY ==
--- NOTE | ~2022-12-10 | XR_ITS ---
EXAMINATION: XR chest 1V portable Exam Date/Time: 12/14/2022 14:40 CDT HISTORY: INCREASING SOB WITH COUGH Comparison: 09/05/2022. RESULT: Lines, tubes, and devices: Breast implants. Lungs and pleura: Severe senescent and likely emphysematous change. Mild diffuse reticular opacities . Streaky bibasilar scar/atelectasis. Cardiomediastinal silhouette: Stable. Other: No acute osseous or upper abdominal finding. IMPRESSION: Mild interstitial edema overlying likely emphysematous change. Reviewed, dictated and finalized at location K.
[2022-12-10 19:53] VITALS: BP 100/56; PULSE 87; RESP 17; TEMP 36.4; O2SAT 98
[2022-12-10 21:38] VITALS: BP 108/65; PULSE 96; RESP 14; TEMP 36.6; O2SAT 92
[2022-12-10 22:29] VITALS: BP 119/64; PULSE 76; RESP 20; O2SAT 100
--- NOTE | 2022-12-10 22:59 | ED.GENADULT ---
HPI - General Adult General Chief complaint: Urogenital-Female Stated complaint: UTI, needs IV antibiotics Time Seen by Provider: 12/10/22 22:31 History of Present Illness HPI narrative: Patient 82-year-old female who presents the emergency department with chief complaint of urinary tract infection. Patient is from a local nursing facility and had a urinalysis and urine culture that was obtained that showed a Sheila urinary tract infection the patient currently has no complaints has history of dementia and is limited in providing history. Related Data Home Medications Medication Instructions Recorded Confirmed pravastatin 40 mg tablet 40 mg PO HS 04/10/20 09/14/22 potassium chloride 10 mEq 10 meq PO DAILY 11/18/20 09/14/22 capsule,extended release spironolactone 25 mg tablet 25 mg PO DAILY 11/18/20 09/14/22 furosemide 40 mg tablet 40 mg PO DAILY 09/14/22 09/14/22 memantine 5 mg tablet 5 mg PO BID 09/14/22 09/14/22 Allergies Allergy/AdvReac Type Severity Reaction Status Date / Time No Known Allergies Allergy Verified 06/07/22 22:11 Review of Systems Review of Systems: A 10 system review of systems was completed on the patient and is negative except for what is stated in the HPI. Nursing and ancillary documentation was reviewed. [facility] Past Medical History Medical History Anxiety and depression Benign essential hypertension Chronic kidney disease, stage 3 Chronic obstructive pulmonary disease Dementia Hiatal hernia Mixed hyperlipidemia Osteoporosis Personal history of nicotine dependence Primary osteoarthritis involving multiple joints Vitamin D deficiency Surgical History Surgical History History of bilateral breast implants History of hysterectomy Family History Family History Mother Family history of heart disease in male family member before age 55 Social History Social History Social History: Surrogate decision maker: Randy Sonido (son) or Mariam Lewis (sister). Code status: Do not resuscitate. Smoking packs per day: 1 Smoking cigarettes per day: 20.0 Years smoked: 59 Smoking pack-years: 59.00 Smoking status: Former smoker Alcohol intake: never Substance use: never Additional living arrangements comments: [facility]. Additional occupation/education comments: Retired. Spiritual care concerns: No Exam Narrative: GENERAL: Well-appearing, well-nourished, and in no acute distress. HEAD: Normocephalic, atraumatic. EYES: PERRLA and EOMI. ENT: Nares clear, no rhinorrhea or epistaxis. Mucous membranes moist. NECK: Supple. CHEST: Clear to auscultation. No respiratory distress. HEART: Regular rate and rhythm. No murmur heard. Normal peripheral pulses. ABDOMEN: Soft, nontender, nondistended, normal active bowel sounds. EXTREMITIES: Normal range of motion. No edema. SKIN: Warm, dry, no rash. NEURO: No focal deficits. Alert and oriented x1. PSYCH: Normal mood and affect. Course Vital Signs Vital signs: Vital Signs Temperature 36.4 C L 12/10/22 19:53 Pulse Rate 87 12/10/22 19:53 Respiratory Rate 17 12/10/22 19:53 Blood Pressure 100/56 L 12/10/22 19:53 Pulse Oximetry 98 12/10/22 19:53 Oxygen Delivery Room Air 12/10/22 19:53 Temperature 36.6 C 12/10/22 21:38 Pulse Rate 76 12/10/22 22:29 Respiratory Rate 20 12/10/22 22:29 Blood Pressure 119/64 12/10/22 22:29 Pulse Oximetry 100 12/10/22 22:29 Oxygen Delivery Room Air 12/10/22 19:53 Medical Decision Making [facility] Narrative Medical decision making narrative: Differential diagnose includes fungal UTI, complicated UTI, renal failure Laboratory studies were obtained on the patient which showed normal white b
[2022-12-10 23:44] LABS: Basophils Percent Auto 0.5 % (0.2-1.2); Eosinophils Percent Auto 0.2 % (0-4.4); Hematocrit 36.6 % (37.0-47.0); Hemoglobin 11.1 g/dL (12.0-15.0); Immature Granulocyte Absolute 0.03 K/mm3 (0.00-0.031); Immature Granulocyte Percent A 0.5 % (0-0.5); Lymphocytes Absolute Auto 1.19 K/mm3 (0.9-3.2); Mean Corpuscular HGB Conc 30.3 g/dl (32-36); Mean Corpuscular Hemoglobin 26.9 pg (26-34); Mean Corpuscular Volume 88.8 fl (80-100); Mean Platelet Volume 10.6 fl (7.4-10.4); Monocytes Absolute Auto 0.4 K/mm3 (0.1-0.6); Monocytes Percent Auto 6.7 % (2.6-8.5); Neutrophils Absolute Auto 4.6 K/mm3 (1.3-6.7); Neutrophils Percent Auto 73.1 % (45.5-73.1); Platelet Count Result 208 k/mm3 (150-375); Red Blood Count 4.12 M/mm3 (4.2-5.4); Red Cell Distribution Width 16.3 % (11.5-14.5); White Blood Count 6.3 K/mm3 (4.5-10.0)
[2022-12-10 23:54] LABS: Alanine Aminotransferase 16 U/L (6-35); Albumin Level 4.5 g/dL (3.5-5.1); Alkaline Phosphatase 68 U/L (38-126); Anion Gap 9 mmol/L (8-16); Aspartate Amino Transferase 28 U/L (14-36); Bilirubin,Total 0.7 mg/dL (0.2-1.3); Blood Urea Nitrogen 29 mg/dL (7-17); Calcium 9.2 mg/dL (8.4-10.2); Carbon Dioxide 26 mmol/L (22-30); Chloride 103 mmol/L (98-107); Estimated Glomerular Filt Rate 36; Glucose 83 mg/dL (65-110); Potassium 4.1 mmol/L (3.4-5.0); Sodium 138 mmol/L (137-145)
[2022-12-10 23:55] LABS: Lactic Acid Reflex 1.1 mmol/L (0.7-2.0)
[2022-12-11] VITALS (8 sets, daily range): BP systolic 95–134; BP diastolic 45–66; PULSE 78–92; RESP 15–18; TEMP 36.1–36.7; O2SAT 92–96; BMI 19.5
[2022-12-11 00:13] LABS: Procalcitonin 0.1 ng/mL
--- NOTE | 2022-12-11 03:12 | PC.NURSE ---
Pt refused to get on commode and provide a urine sample also refused multiple attempts for a straight cath. MD was made aware. No further orders.
--- NOTE | 2022-12-11 04:07 | ADMGEN ---
This patient, Maxine Head, was admitted to Medical Room 245-. Patient/family oriented to hospital policies and general routines including ID bracelet, bed and alarms, visiting hours, pain management, procedures, bathroom and other care routines, personal items, smoking policy, room service/diet, and visiting hours. Information on how to activate the Rapid Response Team has been discussed. Patient/Family are encouraged to report perceived risks to care and to ask questions if they do not understand what they are told or what they should do.
[2022-12-11] MEDS: MICAFUNGIN SODIUM 100 MG in SODIUM CHLORIDE 0.9% IV 100 ML IVPB (04:42)
[2022-12-11 04:55] LABS: Appearance Urine Clear (Clear); Bacteria Urine 4+ /hpf; Bilirubin Urine Negative (Negative); Blood Urine Negative (Negative); Color Urine Yellow (Yellow); Glucose Urine UA Negative (Negative); Ketones Urine Negative (Negative); Leukocyte Esterase Ur 1+ LEU/UL (Negative); Nitrate Urine Negative (Negative); Non Pathogenic Casts 0-2; Protein Urine Negative (Negative); RBC Urine 0-2 /hpf (0-2); Squamous Epithelial Cell Urine None seen /hpf (Few); Urobilinogen Urine 0.2 mg/dL (<2.0)
[2022-12-11 05:13] LABS: Add Urine Microscopic? YES
--- NOTE | 2022-12-11 08:58 | PM.IMHP ---
H&P: HPI History of Present Illness Date/Time: 12/11/22 08:58 Chief Complaint: 82F w/ dementia, anxiety and depression, HTN, CKD stage III, COPD, HLD, osteoporosis presents from [facility] with reports of gina positive urine culture. I am unable to find these records, and the patient is confused which is her baseline, so history is taken from documentation. She presented for UTI, ER administered micafungin and ceftriaxone. The pt herself is pleasantly confused, she does not complain of anything, denies any dysuria or changes in characteristics of her urine. She does not know why she is in the hospital. Her urine collection appears latia yellow without cloudiness. Review of Systems Review of Systems: All systems reviewed & are unremarkable except as noted in HPI and below Constitutional: Constitutional: Denies chills and Denies fatigue Cardiovascular: Cardiovascular: Denies chest pain Respiratory: Respiratory: Denies dyspnea Gastrointestinal: Gastrointestinal: Denies diarrhea, Denies nausea and Denies vomiting PMFSH Past Medical History Medical History Anxiety and depression Benign essential hypertension Chronic kidney disease, stage 3 Chronic obstructive pulmonary disease Dementia Hiatal hernia Mixed hyperlipidemia Osteoporosis Personal history of nicotine dependence Primary osteoarthritis involving multiple joints Vitamin D deficiency Surgical History Surgical History History of bilateral breast implants History of hysterectomy Family History Family History Mother Family history of heart disease in male family member before age 55 Social History Social History Social History: Surrogate decision maker: Randy Head (son) or Mariam Eads (sister). Code status: Do not resuscitate. Smoking packs per day: 1 Smoking cigarettes per day: 20.0 Years smoked: 59 Smoking pack-years: 59.00 Smoking status: Never smoker Alcohol intake: never Substance use: never Substance use type: does not use Additional living arrangements comments: [facility]. Additional occupation/education comments: Retired. Spiritual care concerns: No Meds Home Medications and Allergies Home Medications Medication Instructions Recorded Confirmed Type raloxifene 60 mg tablet (Evista) 60 mg PO DAILY #90 tabs 04/05/19 12/11/22 Rx fluticasone furoate 100 1 inh inhalation DAILY #28 ea 12/13/19 12/11/22 Rx mcg-vilanterol 25 mcg/dose inhalation powder (Breo Ellipta) venlafaxine 150 mg 150 mg PO DAILY #90 caps 01/24/20 12/11/22 Rx capsule,extended release 24 hr pravastatin 40 mg tablet 40 mg PO HS 04/10/20 12/11/22 History losartan 100 mg tablet 100 mg PO DAILY #90 tabs 04/14/20 12/11/22 Rx potassium chloride 10 mEq 10 meq PO DAILY 11/18/20 12/11/22 History capsule,extended release spironolactone 25 mg tablet 25 mg PO DAILY 11/18/20 12/11/22 History furosemide 40 mg tablet 40 mg PO DAILY 09/14/22 12/11/22 History memantine 5 mg tablet 5 mg PO BID 09/14/22 12/11/22 History acetaminophen 325 mg tablet 325 mg PO Q6H PRN Pain or Fever 12/11/22 12/11/22 History Allergies Allergy/AdvReac Type Severity Reaction Status Date / Time No Known Allergies Allergy Verified 06/07/22 22:11 Vital Signs Vital Signs - 24 hr 12/10/22 19:53 12/10/22 21:38 12/10/22 22:29 Temperature 97.5 F L 97.8 F Pulse Rate 87 96 76 Respiratory Rate 17 14 20 Blood Pressure 100/56 L 108/65 119/64 Pulse Oximetry 98 92 100 Oxygen Delivery Room Air 12/11/22 02:12 12/11/22 03:11 12/11/22 04:06 Temperature 97.0 F L Pulse Rate 78 88 80 Respiratory Rate 15 15 18 Blood Pressure 95/45 L 108/53 L 102/66 Pulse Oximetry 93 93 93 Oxygen Delivery 12/11/22 03:59
[2022-12-11] MEDS: SODIUM CHLORIDE 0.9% IV 1,000 ML 100 ML IV CONT ×2 (09:33→18:18)
[2022-12-11] MEDS: LOSARTAN POTASSIUM 100 MG TABLET PO (09:37)
[2022-12-11] MEDS: MEMANTINE 5 MG TABLET PO ×2 (09:37→18:15)
[2022-12-11] MEDS: VENLAFAXINE HCL XR 75 MG CAP.ER.24H 150 MG PO (09:37)
[2022-12-11] MEDS: POTASSIUM CHLORIDE 10 MEQ ER TABLET PO (09:38)
[2022-12-11] MEDS: RALOXIFENE HCL (*CHEMO) 60 MG TABLET PO (09:38)
[2022-12-11] MEDS: HEPARIN SODIUM 5,000 UNITS/ML VIAL 5000 UNITS SUB-Q ×2 (09:42→20:03)
[2022-12-11 09:59] LABS: Basophils Percent Auto 0.5 % (0.2-1.2); Eosinophils Absolute Auto 0.1 K/mm3 (0-0.3); Eosinophils Percent Auto 0.8 % (0-4.4); Hematocrit 35.7 % (37.0-47.0); Hemoglobin 10.6 g/dL (12.0-15.0); Immature Granulocyte Absolute 0.04 K/mm3 (0.00-0.031); Immature Granulocyte Percent A 0.5 % (0-0.5); Lymphocytes Absolute Auto 1.65 K/mm3 (0.9-3.2); Lymphocytes Percent Auto 22.5 % (18.3-44.2); Mean Corpuscular HGB Conc 29.7 g/dl (32-36); Mean Corpuscular Hemoglobin 26.8 pg (26-34); Mean Corpuscular Volume 90.4 fl (80-100); Mean Platelet Volume 10.3 fl (7.4-10.4); Monocytes Absolute Auto 0.5 K/mm3 (0.1-0.6); Monocytes Percent Auto 6.4 % (2.6-8.5); Neutrophils Absolute Auto 5.1 K/mm3 (1.3-6.7); Neutrophils Percent Auto 69.3 % (45.5-73.1); Platelet Count Result 211 k/mm3 (150-375); Red Blood Count 3.95 M/mm3 (4.2-5.4); Red Cell Distribution Width 16.3 % (11.5-14.5); White Blood Count 7.3 K/mm3 (4.5-10.0)
[2022-12-11 10:26] LABS: Anion Gap 13 mmol/L (8-16); Blood Urea Nitrogen 37 mg/dL (7-17); Calcium 8.5 mg/dL (8.4-10.2); Carbon Dioxide 23 mmol/L (22-30); Chloride 100 mmol/L (98-107); Estimated CRCL calculation 22 ml/min; Estimated Glomerular Filt Rate 39; Glucose 174 mg/dL (65-110); Potassium 3.9 mmol/L (3.4-5.0); Sodium 136 mmol/L (137-145)
[2022-12-11] MEDS: FLUCONAZOLE 100 MG TABLET PO (15:18)
[2022-12-11] MEDS: ACETAMINOPHEN 325 MG TABLET PO (20:04)
[2022-12-11] MEDS: PRAVASTATIN SODIUM 20 MG TABLET 40 MG PO (20:04)
[2022-12-11 20:26] LABS: Glucose Point of Care 122 mg/dl (65-105)
[2022-12-12] VITALS (7 sets, daily range): BP systolic 133–154; BP diastolic 70–95; PULSE 67–90; RESP 18–20; TEMP 36.4–36.8; O2SAT 92–94
[2022-12-12] MEDS: SODIUM CHLORIDE 0.9% IV 1,000 ML 100 ML IV CONT ×2 (06:09→14:23)
[2022-12-12] MEDS: FLUTICASONE/SALMETEROL 115-21 MCG INHALER 1 PUFF 2 PUFF INHALATION ×2 (07:05→20:09)
--- NOTE | 2022-12-12 08:09 | PM.IMPN ---
Progress Note: A&P Assessment and Plan (1) Sheila UTI: Code(s): B37.49 - Other urogenital candidiasis Status: Acute Plan 82F w/ dementia, anxiety and depression, HTN, CKD stage III, COPD, HLD, osteoporosis presents from [facility] with reports of sheila positive urine culture. Admitted for observation on 12/11/22 1) sheila UTI - reportedly via urine culture at outside facility. I am still unable to find these records. will f/u urine culture and continue micafungin (switched to fluconazole on 12/11) and ceftriaxone for now 2) CKD stage 3 - her GFR is 36 on this admission. improved with trial of NS @ 100ml/hr, continue that 3) HTN - hold diuretics in light of #2,she has poor PO intake, would cont holding 4) COPD - continue home inhalers FEN: heart healthy diet GI prophylaxis: not indicated DVT prophylaxis: HSC Lines: pIV Code Status: DNR Dispo: stable. Subjective Date/time seen: 12/12/22 08:09 Interval history: NAOE. pt is without complaints. she denies urinary symptoms, sob, or chest pain Review of Systems Review of Systems: All systems reviewed & are unremarkable except as noted in HPI and below Exam Const: General: comfortable and no acute distress Other: A&O x 1 Eyes: Pupils: Equal, round and reactive pupils present Resp: Effort & Inspection: normal respiratory effort Auscultation: clear to auscultation bilaterally and no crackles Cardio: Rate: regular rate Rhythm: regular rhythm GI: GI Palp: Yes Soft to palpation Auscultation: normal bowel sounds Extrem: General: no edema Objective Data Vital Signs Vital Signs: Vital Signs - 24 hr 12/11/22 09:31 12/11/22 09:40 12/11/22 13:21 Temperature 98.0 F Pulse Rate 92 84 Respiratory Rate 16 Blood Pressure 122/61 104/53 L Pulse Oximetry 95 96 Oxygen Delivery Room Air 12/11/22 19:43 12/11/22 20:10 12/11/22 21:40 Temperature 97.6 F Pulse Rate 88 82 Respiratory Rate 18 18 Blood Pressure 134/57 L Pulse Oximetry 95 94 92 Oxygen Delivery Room Air Room Air 12/12/22 06:00 Temperature 97.9 F Pulse Rate 90 Respiratory Rate 18 Blood Pressure 133/95 H Pulse Oximetry 92 Oxygen Delivery Intake/Output Intake/Output: Intake & Output 12/09/22 12/10/22 12/11/22 12/12/22 23:59 23:59 23:59 23:59 Intake Total 1920 1000 Output Total 600 1202 Balance 1320 -202 Meds/Results Medications: Active Medications Generic Name Dose Route Start Last Admin Trade Name Freq PRN Reason Stop Dose Admin Acetaminophen 325 mg 12/11/22 09:06 12/11/22 20:04 Acetaminophen 325 Mg Tablet PO 325 mg Q6H PRN Administration Pain or Fever Fluconazole 100 mg 12/11/22 14:30 12/11/22 15:18 Fluconazole 100 Mg Tablet PO 100 mg QAM CINDY Administration Heparin Sodium (Porcine) 5,000 units 12/11/22 09:00 12/11/22 20:03 Heparin Sodium 5,000 Units/Ml Vial SUB-Q 5,000 units Q12HR CINDY Administration Ceftriaxone Sodium 1 gm in 50 mls @ 100 mls/hr 12/12/22 03:00 12/12/22 03:09 Rocephin 1 Gm/Ns 50 Ml IVPB 100 mls/hr Q24H CINDY Administration Sodium Chloride 1,000 mls @ 100 mls/hr 12/11/22 08:55 12/12/22 06:09 Normal Saline Iv IV CONT 100 mls/hr .Q10H CINDY Administration Losartan Potassium 100 mg 12/11/22 09:00 12/11/22 09:37 Losartan Potassium 100 Mg Tablet PO 100 mg DAILY CINDY Administration Memantine 5 mg 12/11/22 09:00 12/11/22 18:15 Memantine 5 Mg Tablet PO 5 mg BID CINDY Administration Potassium Chloride 10 meq 12/11/22 09:00 12/11/22 09:38 Potassium Chloride 10 Meq Er Tablet PO 10 meq DAILY CINDY Administration Pravastatin Sodium 40 mg 12/11/22 21:00 12/11/22 20:04 Pravastatin Sodium 20 Mg Tablet PO 40 mg HS CINDY Administration Raloxifene HCl 60 mg 12/11/22 09:00 12/11/22 09:38 Raloxifene Hcl (*Chemo) 60 Mg Tablet PO 60 mg DAILY CINDY Administration Fluticasone/Salmeterol 2 puff 12/12/22 09:15 F
[2022-12-12] MEDS: VENLAFAXINE HCL XR 75 MG CAP.ER.24H 150 MG PO (09:00)
[2022-12-12] MEDS: POTASSIUM CHLORIDE 10 MEQ ER TABLET PO (09:01)
[2022-12-12] MEDS: FLUCONAZOLE 100 MG TABLET PO (09:01)
[2022-12-12] MEDS: MEMANTINE 5 MG TABLET PO ×2 (09:01→16:39)
[2022-12-12] MEDS: LOSARTAN POTASSIUM 100 MG TABLET PO (09:01)
[2022-12-12] MEDS: RALOXIFENE HCL (*CHEMO) 60 MG TABLET PO (09:01)
[2022-12-12] MEDS: HEPARIN SODIUM 5,000 UNITS/ML VIAL 5000 UNITS SUB-Q ×2 (09:06→21:04)
--- NOTE | 2022-12-12 13:53 | PC.NURSE ---
On 12/12/22, the student, [Olga De Dios], provided care and completed [facility] documentation on this patient. I have reviewed the student's documentation and agree with the findings.
[2022-12-12] MEDS: PRAVASTATIN SODIUM 20 MG TABLET 40 MG PO (21:04)
[2022-12-13] MEDS: SODIUM CHLORIDE 0.9% IV 1,000 ML 100 ML IV CONT ×2 (00:31→11:17)
[2022-12-13 05:59] LABS: Basophils Percent Auto 0.7 % (0.2-1.2); Eosinophils Absolute Auto 0.2 K/mm3 (0-0.3); Eosinophils Percent Auto 3.5 % (0-4.4); Hematocrit 30.3 % (37.0-47.0); Hemoglobin 8.9 g/dL (12.0-15.0); Immature Granulocyte Absolute 0.02 K/mm3 (0.00-0.031); Immature Granulocyte Percent A 0.4 % (0-0.5); Lymphocytes Absolute Auto 1.14 K/mm3 (0.9-3.2); Lymphocytes Percent Auto 24.9 % (18.3-44.2); Mean Corpuscular HGB Conc 29.4 g/dl (32-36); Mean Corpuscular Hemoglobin 26.9 pg (26-34); Mean Corpuscular Volume 91.5 fl (80-100); Mean Platelet Volume 10.5 fl (7.4-10.4); Monocytes Absolute Auto 0.4 K/mm3 (0.1-0.6); Monocytes Percent Auto 9.2 % (2.6-8.5); Neutrophils Absolute Auto 2.8 K/mm3 (1.3-6.7); Neutrophils Percent Auto 61.3 % (45.5-73.1); Platelet Count Result 162 k/mm3 (150-375); Red Blood Count 3.31 M/mm3 (4.2-5.4); Red Cell Distribution Width 16.6 % (11.5-14.5); White Blood Count 4.6 K/mm3 (4.5-10.0)
[2022-12-13 06:00] VITALS: BP 137/51; PULSE 76; RESP 18; TEMP 36.7; O2SAT 90
[2022-12-13 06:17] LABS: Anion Gap 6 mmol/L (8-16); Blood Urea Nitrogen 13 mg/dL (7-17); Calcium 7.8 mg/dL (8.4-10.2); Carbon Dioxide 22 mmol/L (22-30); Chloride 112 mmol/L (98-107); Estimated CRCL calculation 35 ml/min; Estimated Glomerular Filt Rate > 60; Glucose 81 mg/dL (65-110); Sodium 140 mmol/L (137-145)
[2022-12-13] MEDS: FLUTICASONE/SALMETEROL 115-21 MCG INHALER 1 PUFF 2 PUFF INHALATION ×2 (08:14→20:41)
[2022-12-13 08:15] VITALS: O2SAT 92
[2022-12-13] MEDS: POTASSIUM CHLORIDE 10 MEQ ER TABLET PO (09:08)
[2022-12-13] MEDS: HEPARIN SODIUM 5,000 UNITS/ML VIAL 5000 UNITS SUB-Q ×2 (09:09→20:51)
[2022-12-13] MEDS: FLUCONAZOLE 100 MG TABLET PO (09:09)
[2022-12-13] MEDS: LOSARTAN POTASSIUM 100 MG TABLET PO (09:09)
[2022-12-13] MEDS: VENLAFAXINE HCL XR 75 MG CAP.ER.24H 150 MG PO (09:09)
[2022-12-13] MEDS: MEMANTINE 5 MG TABLET PO ×2 (09:09→17:25)
[2022-12-13] MEDS: RALOXIFENE HCL (*CHEMO) 60 MG TABLET PO (09:09)
[2022-12-13 13:48] VITALS: BP 144/80; PULSE 80; RESP 18; TEMP 36.6; O2SAT 95
--- NOTE | 2022-12-13 14:13 | PC.NURSE ---
On 12/13/22, the student, [Olga De Dios], provided care and completed [facility] documentation on this patient. I have reviewed the student's documentation and agree with the findings.
--- NOTE | 2022-12-13 14:34 | PM.IMPN ---
Progress Note: A&P Assessment and Plan (1) Sheila UTI: Code(s): B37.49 - Other urogenital candidiasis Status: Acute Plan 82F w/ dementia, anxiety and depression, HTN, CKD stage III, COPD, HLD, osteoporosis presents from [facility] with reports of sheila positive urine culture. Admitted for observation on 12/11/22 1) sheila UTI - reportedly via urine culture at outside facility. I am still unable to find these records. will f/u urine culture and continue micafungin (switched to fluconazole on 12/11) and ceftriaxone for now - urine cultures growing e coli only. switch abx to bactrim 2) CKD stage 3 - jose luis on ckd. improved after fluid administration. she has poor PO intake. - now stable with scr .80 and GFR > 60 3) HTN - hold diuretics in light of #2,she has poor PO intake, would cont holding 4) COPD - continue home inhalers FEN: heart healthy diet GI prophylaxis: not indicated DVT prophylaxis: HSC Lines: pIV Code Status: DNR Dispo: stable. awaiting clearance for her to go back to assisted living More than 25 minutes spent on chart review, patient interaction and assessment and plan. Subjective Date/time seen: 12/13/22 14:34 Interval history: NAOE. pt says she is ready to go back to assisted living Review of Systems Review of Systems: All systems reviewed & are unremarkable except as noted in HPI and below Exam Const: General: comfortable and no acute distress Other: A&O x 1 Eyes: Pupils: Equal, round and reactive pupils present Resp: Effort & Inspection: normal respiratory effort Auscultation: clear to auscultation bilaterally and no crackles Cardio: Rate: regular rate Rhythm: regular rhythm GI: GI Palp: Yes Soft to palpation Auscultation: normal bowel sounds Extrem: General: no edema Objective Data Vital Signs Vital Signs: Vital Signs - 24 hr 12/12/22 17:00 12/12/22 19:47 12/12/22 20:12 Temperature 97.6 F 98.3 F Pulse Rate 85 79 70 Respiratory Rate 18 18 18 Blood Pressure 138/74 154/70 H Pulse Oximetry 93 92 Oxygen Delivery 12/12/22 20:13 12/12/22 21:00 12/13/22 06:00 Temperature 98.0 F Pulse Rate 70 76 Respiratory Rate 20 18 Blood Pressure 137/51 L Pulse Oximetry 94 90 Oxygen Delivery Room Air Room Air 12/13/22 08:15 12/13/22 13:48 Temperature 97.8 F Pulse Rate 80 Respiratory Rate 18 Blood Pressure 144/80 H Pulse Oximetry 92 95 Oxygen Delivery Room Air Intake/Output Intake/Output: Intake & Output 12/10/22 12/11/22 12/12/22 12/13/22 23:59 23:59 23:59 23:59 Intake Total 1920 2990 2450 Output Total 600 1652 1800 Balance 1320 1338 650 Meds/Results Medications: Active Medications Generic Name Dose Route Start Last Admin Trade Name Freq PRN Reason Stop Dose Admin Acetaminophen 325 mg 12/11/22 09:06 12/11/22 20:04 Acetaminophen 325 Mg Tablet PO 325 mg Q6H PRN Administration Pain or Fever Heparin Sodium (Porcine) 5,000 units 12/11/22 09:00 12/13/22 09:09 Heparin Sodium 5,000 Units/Ml Vial SUB-Q 5,000 units Q12HR CINDY Administration Sodium Chloride 1,000 mls @ 100 mls/hr 12/11/22 08:55 12/13/22 11:17 Normal Saline Iv IV CONT 100 mls/hr .Q10H CINDY Administration Losartan Potassium 100 mg 12/11/22 09:00 12/13/22 09:09 Losartan Potassium 100 Mg Tablet PO 100 mg DAILY CINDY Administration Memantine 5 mg 12/11/22 09:00 12/13/22 09:09 Memantine 5 Mg Tablet PO 5 mg BID CINDY Administration Potassium Chloride 10 meq 12/11/22 09:00 12/13/22 09:08 Potassium Chloride 10 Meq Er Tablet PO 10 meq DAILY CINDY Administration Pravastatin Sodium 40 mg 12/11/22 21:00 12/12/22 21:04 Pravastatin Sodium 20 Mg Tablet PO 40 mg HS CINDY Administration Raloxifene HCl 60 mg 12/11/22 09:00 12/13/22 09:09 Raloxifene Hcl (*Chemo) 60 Mg Tablet PO 60 mg DAILY CINDY Administration Fluticasone/Salmeterol 2 puff 12/12/22 09:15 12/13/22 08:14 Fluticas
[2022-12-13 19:23] VITALS: BP 124/64; PULSE 84; RESP 14; TEMP 36.9; O2SAT 94
[2022-12-13] MEDS: PRAVASTATIN SODIUM 20 MG TABLET 40 MG PO (20:49)
[2022-12-13] MEDS: SULFAMETHOXAZOLE/TRIMETHOPRIM 800/160 MG DS TABLET 1 TAB PO (20:49)
[2022-12-14] VITALS (9 sets, daily range): BP systolic 115–135; BP diastolic 53–74; PULSE 70–88; RESP 14–24; TEMP 36.8–37; O2SAT 92–95
[2022-12-14] MEDS: FLUTICASONE/SALMETEROL 115-21 MCG INHALER 1 PUFF 2 PUFF INHALATION ×2 (07:49→20:34)
[2022-12-14] MEDS: LOSARTAN POTASSIUM 100 MG TABLET PO (09:40)
[2022-12-14] MEDS: HEPARIN SODIUM 5,000 UNITS/ML VIAL 5000 UNITS SUB-Q ×2 (09:40→20:55)
[2022-12-14] MEDS: RALOXIFENE HCL (*CHEMO) 60 MG TABLET PO (09:41)
[2022-12-14] MEDS: MEMANTINE 5 MG TABLET PO ×2 (09:41→17:17)
[2022-12-14] MEDS: POTASSIUM CHLORIDE 10 MEQ ER TABLET PO (09:41)
[2022-12-14] MEDS: SULFAMETHOXAZOLE/TRIMETHOPRIM 800/160 MG DS TABLET 1 TAB PO ×2 (09:42→20:55)
[2022-12-14] MEDS: VENLAFAXINE HCL XR 75 MG CAP.ER.24H 150 MG PO (09:42)
--- NOTE | 2022-12-14 14:39 | PM.IMPN ---
Progress Note: A&P Assessment and Plan (1) Sheila UTI: Code(s): B37.49 - Other urogenital candidiasis Status: Acute (2) Chronic obstructive pulmonary disease: Code(s): J44.9 - Chronic obstructive pulmonary disease, unspecified Status: Acute (3) COPD with acute exacerbation: Code(s): J44.1 - Chronic obstructive pulmonary disease with (acute) exacerbation Status: Acute Plan still pending clearance from assisting living for her to return cont abx for e coli UTI with bactrim acute copd exacerbation. duoneb x1. wean o2 as tolerated (only placed for comfort). and CXR portable stat. sister at bedside reports this does happen from time to time. FEN: heart healthy diet GI prophylaxis: not indicated DVT prophylaxis: HSC Lines: pIV Code Status: DNR Dispo: pending d/c to assisted living More than 35 minutes spent on chart review, patient interaction and assessment and plan. Subjective Date/time seen: 12/14/22 14:39 Interval history: in the AM, patient had no complaints. she looked fine. at 1430 alerted by nurse the patient had looked short of breath by the sister who was visiting. the patient was placed on 1L NC and improved. upon evaluation she had wheezing, no chest pain. pt did not produce additional complaints. Review of Systems Review of Systems: All systems reviewed & are unremarkable except as noted in HPI and below Exam Const: General: comfortable and no acute distress Eyes: Pupils: Equal, round and reactive pupils present Neck: Neck: supple Resp: Effort & Inspection: normal respiratory effort Auscultation: wheezes and diminished lung sounds Cardio: Rate: regular rate Rhythm: regular rhythm Heart sounds: no gallops, no murmurs and no rubs GI: GI Palp: Yes Soft to palpation Auscultation: normal bowel sounds Extrem: General: no edema Objective Data Vital Signs Vital Signs: Vital Signs - 24 hr 12/13/22 14:43 12/13/22 19:23 12/13/22 20:00 Temperature 98.5 F Pulse Rate 84 Respiratory Rate 14 Blood Pressure 124/64 Pulse Oximetry 94 Oxygen Delivery Room Air Room Air 12/14/22 04:56 12/14/22 07:51 12/14/22 09:34 Temperature 98.3 F Pulse Rate 73 Respiratory Rate 14 Blood Pressure 135/74 Pulse Oximetry 95 92 Oxygen Delivery Room Air Room Air 12/14/22 14:00 Temperature 98.6 F Pulse Rate 79 Respiratory Rate 24 H Blood Pressure 120/53 L Pulse Oximetry 94 Oxygen Delivery Intake/Output Intake/Output: Intake & Output 12/11/22 12/12/22 12/13/22 12/14/22 23:59 23:59 23:59 23:59 Intake Total 1920 2990 2570 920 Output Total 600 1652 2250 Balance 1320 1338 320 920 Meds/Results Medications: Active Medications Generic Name Dose Route Start Last Admin Trade Name Freq PRN Reason Stop Dose Admin Acetaminophen 325 mg 12/11/22 09:06 12/11/22 20:04 Acetaminophen 325 Mg Tablet PO 325 mg Q6H PRN Administration Pain or Fever Heparin Sodium (Porcine) 5,000 units 12/11/22 09:00 12/14/22 09:40 Heparin Sodium 5,000 Units/Ml Vial SUB-Q 5,000 units Q12HR CINDY Administration Losartan Potassium 100 mg 12/11/22 09:00 12/14/22 09:40 Losartan Potassium 100 Mg Tablet PO 100 mg DAILY CINDY Administration Memantine 5 mg 12/11/22 09:00 12/14/22 09:41 Memantine 5 Mg Tablet PO 5 mg BID CINDY Administration Potassium Chloride 10 meq 12/11/22 09:00 12/14/22 09:41 Potassium Chloride 10 Meq Er Tablet PO 10 meq DAILY CINDY Administration Pravastatin Sodium 40 mg 12/11/22 21:00 12/13/22 20:49 Pravastatin Sodium 20 Mg Tablet PO 40 mg HS CINDY Administration Raloxifene HCl 60 mg 12/11/22 09:00 12/14/22 09:41 Raloxifene Hcl (*Chemo) 60 Mg Tablet PO 60 mg DAILY CINDY Administration Fluticasone/Salmeterol 2 puff 12/12/22 09:15 12/14/22 07:49 Fluticasone/Salmeterol 115-21 Mcg Inhaler 1 Puff INHALATION 2 puff Q12HRT CINDY Administration Trimethoprim/Sulfamethox
[2022-12-14] MEDS: IPRATROPIUM BR 0.02% INH SOLN 0.5 MG/2.5 ML VIAL INHALATION (14:45)
[2022-12-14] MEDS: ALBUTEROL SULFATE NEB 2.5 MG/3 ML INH 1.25 MG INHALATION (14:45)
[2022-12-14] MEDS: PRAVASTATIN SODIUM 20 MG TABLET 40 MG PO (20:55)
[2022-12-15 06:00] VITALS: BP 149/65; PULSE 77; RESP 16; TEMP 36.5; O2SAT 90
[2022-12-15 06:45] LABS: Basophils Percent Auto 0.5 % (0.2-1.2); Eosinophils Absolute Auto 0.2 K/mm3 (0-0.3); Eosinophils Percent Auto 2.6 % (0-4.4); Hematocrit 31.1 % (37.0-47.0); Hemoglobin 9.4 g/dL (12.0-15.0); Immature Granulocyte Absolute 0.01 K/mm3 (0.00-0.031); Immature Granulocyte Percent A 0.2 % (0-0.5); Lymphocytes Absolute Auto 1.37 K/mm3 (0.9-3.2); Mean Corpuscular HGB Conc 30.2 g/dl (32-36); Mean Corpuscular Hemoglobin 26.9 pg (26-34); Mean Corpuscular Volume 89.1 fl (80-100); Mean Platelet Volume 10.7 fl (7.4-10.4); Monocytes Absolute Auto 0.5 K/mm3 (0.1-0.6); Monocytes Percent Auto 9.3 % (2.6-8.5); Neutrophils Absolute Auto 3.6 K/mm3 (1.3-6.7); Neutrophils Percent Auto 63.4 % (45.5-73.1); Platelet Count Result 165 k/mm3 (150-375); Red Blood Count 3.49 M/mm3 (4.2-5.4); Red Cell Distribution Width 16.9 % (11.5-14.5); White Blood Count 5.7 K/mm3 (4.5-10.0)
[2022-12-15 07:00] LABS: Anion Gap 5 mmol/L (8-16); Blood Urea Nitrogen 11 mg/dL (7-17); Calcium 8.7 mg/dL (8.4-10.2); Carbon Dioxide 23 mmol/L (22-30); Chloride 114 mmol/L (98-107); Estimated CRCL calculation 26 ml/min; Estimated Glomerular Filt Rate 48; Glucose 83 mg/dL (65-110); Potassium 4.2 mmol/L (3.4-5.0); Sodium 142 mmol/L (137-145)
[2022-12-15 07:01] LABS: NT Pro B Type Natriuretic Pept 2840 pg/mL (19.9-100)
[2022-12-15 07:28] LABS: Procalcitonin 0.1 ng/mL
[2022-12-15 08:00] VITALS: PULSE 77; RESP 16; O2SAT 93
[2022-12-15 08:03] VITALS: O2SAT 93
[2022-12-15] MEDS: FLUTICASONE/SALMETEROL 115-21 MCG INHALER 1 PUFF 2 PUFF INHALATION ×2 (08:03→20:22)
[2022-12-15] MEDS: MEMANTINE 5 MG TABLET PO ×2 (08:59→17:07)
[2022-12-15] MEDS: VENLAFAXINE HCL XR 75 MG CAP.ER.24H 150 MG PO (08:59)
[2022-12-15] MEDS: RALOXIFENE HCL (*CHEMO) 60 MG TABLET PO (08:59)
[2022-12-15] MEDS: LOSARTAN POTASSIUM 100 MG TABLET PO (08:59)
[2022-12-15] MEDS: SULFAMETHOXAZOLE/TRIMETHOPRIM 800/160 MG DS TABLET 1 TAB PO ×2 (08:59→20:08)
[2022-12-15] MEDS: HEPARIN SODIUM 5,000 UNITS/ML VIAL 5000 UNITS SUB-Q ×2 (08:59→20:08)
[2022-12-15] MEDS: POTASSIUM CHLORIDE 10 MEQ ER TABLET PO (08:59)
[2022-12-15 14:00] VITALS: BP 125/59; PULSE 93; RESP 22; TEMP 36.7; O2SAT 94
--- NOTE | 2022-12-15 14:16 | PM.IMPN ---
Progress Note: A&P Assessment and Plan (1) Sheila UTI: Code(s): B37.49 - Other urogenital candidiasis Status: Acute (2) Chronic obstructive pulmonary disease: Code(s): J44.9 - Chronic obstructive pulmonary disease, unspecified Status: Acute (3) COPD with acute exacerbation: Code(s): J44.1 - Chronic obstructive pulmonary disease with (acute) exacerbation Status: Acute Plan still pending clearance from assisting living for her to return cont abx for e coli UTI with bactrim acute copd exacerbation. resolved s/p duoneb x1. wean o2 as tolerated (only placed for comfort). blood cultures one bottle grew staph epidermis, likely contaminant, redraw blood cultures today FEN: heart healthy diet GI prophylaxis: not indicated DVT prophylaxis: HSC Lines: pIV Code Status: DNR Dispo: pending d/c to assisted living More than 25 minutes spent on chart review, patient interaction and assessment and plan. Subjective Date/time seen: 12/15/22 14:16 Interval history: NAOE. pt reports normal breathing, on oxygen but nurse reports she did not desaturate. asked nurse to remove it. Review of Systems Review of Systems: All systems reviewed & are unremarkable except as noted in HPI and below Exam Const: General: comfortable and no acute distress Other: A&O x 1 Eyes: Pupils: Equal, round and reactive pupils present Neck: Neck: supple Resp: Effort & Inspection: normal respiratory effort Auscultation: clear to auscultation bilaterally, no crackles, wheezes and diminished lung sounds Cardio: Rate: regular rate Rhythm: regular rhythm Heart sounds: no gallops, no murmurs and no rubs GI: Inspection: non-distended Auscultation: normal bowel sounds : General: Yes bladder normal to palpation Bimanual exam- vagina & uterus: bladder normal to palpation Urinary Catheter: Urinary Catheter: urine clear Neuro: Cranial nerves: Yes Equal, round and reactive pupils present Extrem: General: no edema Psych: Other: A&O x1. Objective Data Vital Signs Vital Signs: Vital Signs - 24 hr 12/14/22 14:45 12/14/22 14:55 12/14/22 19:34 Temperature 98.2 F Pulse Rate 88 87 80 Respiratory Rate 18 20 14 Blood Pressure 115/62 Pulse Oximetry 95 Oxygen Delivery Oxygen Flow Rate 12/14/22 20:36 12/14/22 20:38 12/14/22 20:00 Temperature Pulse Rate 87 70 Respiratory Rate 20 20 Blood Pressure Pulse Oximetry 94 95 Oxygen Delivery Room Air Nasal Cannula Oxygen Flow Rate 2 12/15/22 06:00 12/15/22 08:03 12/15/22 08:00 Temperature 97.7 F Pulse Rate 77 77 Respiratory Rate 16 16 Blood Pressure 149/65 H Pulse Oximetry 90 93 93 Oxygen Delivery Nasal Cannula Nasal Cannula Oxygen Flow Rate 1 2 Intake/Output Intake/Output: Intake & Output 12/12/22 12/13/22 12/14/22 12/15/22 23:59 23:59 23:59 23:59 Intake Total 2990 2570 940 330 Output Total 1652 2250 Balance 1338 320 940 330 Meds/Results Medications: Active Medications Generic Name Dose Route Start Last Admin Trade Name Freq PRN Reason Stop Dose Admin Acetaminophen 325 mg 12/11/22 09:06 12/11/22 20:04 Acetaminophen 325 Mg Tablet PO 325 mg Q6H PRN Administration Pain or Fever Heparin Sodium (Porcine) 5,000 units 12/11/22 09:00 12/15/22 08:59 Heparin Sodium 5,000 Units/Ml Vial SUB-Q 5,000 units Q12HR CINDY Administration Losartan Potassium 100 mg 12/11/22 09:00 12/15/22 08:59 Losartan Potassium 100 Mg Tablet PO 100 mg DAILY CINDY Administration Memantine 5 mg 12/11/22 09:00 12/15/22 08:59 Memantine 5 Mg Tablet PO 5 mg BID CINDY Administration Potassium Chloride 10 meq 12/11/22 09:00 12/15/22 08:59 Potassium Chloride 10 Meq Er Tablet PO 10 meq DAILY CINDY Administration Pravastatin Sodium 40 mg 12/11/22 21:00 12/14/22 20:55 Pravastatin Sodium 20 Mg Tablet PO 40 mg HS CINDY Administration Raloxifene HCl 60 mg
[2022-12-15] MEDS: PRAVASTATIN SODIUM 20 MG TABLET 40 MG PO (20:08)
[2022-12-15 20:24] VITALS: O2SAT 93
[2022-12-15 21:15] VITALS: BP 119/68; PULSE 84; RESP 17; TEMP 36.5; O2SAT 95
[2022-12-16] VITALS (8 sets, daily range): BP systolic 109–130; BP diastolic 58–76; PULSE 65–89; RESP 16–20; TEMP 36.4–36.7; O2SAT 91–100
[2022-12-16 05:35] LABS: Basophils Percent Auto 0.6 % (0.2-1.2); Eosinophils Absolute Auto 0.2 K/mm3 (0-0.3); Hematocrit 30.9 % (37.0-47.0); Hemoglobin 9.2 g/dL (12.0-15.0); Immature Granulocyte Absolute 0.02 K/mm3 (0.00-0.031); Immature Granulocyte Percent A 0.4 % (0-0.5); Lymphocytes Absolute Auto 1.32 K/mm3 (0.9-3.2); Lymphocytes Percent Auto 24.9 % (18.3-44.2); Mean Corpuscular HGB Conc 29.8 g/dl (32-36); Mean Corpuscular Hemoglobin 26.9 pg (26-34); Mean Corpuscular Volume 90.4 fl (80-100); Mean Platelet Volume 10.8 fl (7.4-10.4); Monocytes Absolute Auto 0.5 K/mm3 (0.1-0.6); Neutrophils Absolute Auto 3.3 K/mm3 (1.3-6.7); Neutrophils Percent Auto 61.1 % (45.5-73.1); Platelet Count Result 173 k/mm3 (150-375); Red Blood Count 3.42 M/mm3 (4.2-5.4); Red Cell Distribution Width 17.2 % (11.5-14.5); White Blood Count 5.3 K/mm3 (4.5-10.0)
[2022-12-16 05:46] LABS: Anion Gap 8 mmol/L (8-16); Blood Urea Nitrogen 13 mg/dL (7-17); Calcium 8.3 mg/dL (8.4-10.2); Carbon Dioxide 22 mmol/L (22-30); Chloride 113 mmol/L (98-107); Estimated CRCL calculation 22 ml/min; Estimated Glomerular Filt Rate 39; Glucose 86 mg/dL (65-110); Potassium 4.4 mmol/L (3.4-5.0); Sodium 143 mmol/L (137-145)
[2022-12-16 06:10] LABS: Platelet Estimate Adequate (Adequate)
[2022-12-16 06:11] LABS: Anisocytosis 1+ (NORMAL); Hypochromasia 1+ (NORMAL); Ovalocytes 1+ (NORMAL); Schistocytes None Seen (NORMAL)
[2022-12-16] MEDS: FLUTICASONE/SALMETEROL 115-21 MCG INHALER 1 PUFF 2 PUFF INHALATION ×2 (08:43→20:31)
[2022-12-16] MEDS: SODIUM CHLORIDE 0.9% IV 1,000 ML 100 ML IV CONT ×2 (09:33→18:53)
[2022-12-16] MEDS: LOSARTAN POTASSIUM 100 MG TABLET PO (09:36)
[2022-12-16] MEDS: VENLAFAXINE HCL XR 75 MG CAP.ER.24H 150 MG PO (09:36)
[2022-12-16] MEDS: MEMANTINE 5 MG TABLET PO ×2 (09:36→16:07)
[2022-12-16] MEDS: POTASSIUM CHLORIDE 10 MEQ ER TABLET PO (09:36)
[2022-12-16] MEDS: RALOXIFENE HCL (*CHEMO) 60 MG TABLET PO (09:36)
[2022-12-16] MEDS: HEPARIN SODIUM 5,000 UNITS/ML VIAL 5000 UNITS SUB-Q (09:39)
--- NOTE | 2022-12-16 09:40 | PM.IMPN ---
Progress Note: A&P Assessment and Plan (1) Sheila UTI: Code(s): B37.49 - Other urogenital candidiasis Status: Acute (2) Chronic obstructive pulmonary disease: Code(s): J44.9 - Chronic obstructive pulmonary disease, unspecified Status: Acute (3) COPD with acute exacerbation: Code(s): J44.1 - Chronic obstructive pulmonary disease with (acute) exacerbation Status: Acute Plan 82F w/ dementia, anxiety and depression, HTN, CKD stage III, COPD, HLD, osteoporosis presents from her assisted living facility with reports of sheila positive urine. The patient was admitted for treatment of this, although asymptomatic. The report from assisted living facility is not found even after making a request for documentation. Urine culture obtained on admission reported positive for e coli UTI sensitive to Bactrim. 1) UTI, asymptomatic - reported sheila at assisted living. no fungal growth here, fluconazole stopped - e coli, received total 7 day course, ceftriaxone and bactrim 2) sob - on 12/14 reported increased work of breathing by family member, resolved after one duoneb. - acute copd exacerbation, mild 3) CKD stage III - renal dosing meds - on admission, fluid bolus improved her sCR, has since been off fluids. now with slow increase of sCR, she has poor oral intake. start NS @ 100ml/hr and recheck BMP in am blood culture positive staph epidermis x1 from 12/11. likely contaminant. repeat blood cultures on 12/15 pending. FEN: heart healthy diet, NS @ 100ml/hr GI prophylaxis: not indicated DVT prophylaxis: HSC Lines: pIV Code Status: DNR Dispo: pending d/c back to assisted living, monitor sCR and blood cultures. abx for UTI completed course More than 35 minutes spent on chart review, patient interaction and assessment and plan. Subjective Date/time seen: 12/16/22 09:40 Interval history: NAOE. pt denies SOB. she is at her usual, quiet and pleasant self, but smiles when she sees me. she denies any complaints. Review of Systems Review of Systems: All systems reviewed & are unremarkable except as noted in HPI and below Exam Const: General: comfortable and no acute distress Resp: Effort & Inspection: normal respiratory effort Auscultation: clear to auscultation bilaterally Cardio: Rate: regular rate Rhythm: regular rhythm GI: Inspection: non-distended GI Palp: No Tenderness to palpation present (GI) Auscultation: normal bowel sounds Extrem: General: no edema Objective Data Vital Signs Vital Signs: Vital Signs - 24 hr 12/15/22 14:00 12/15/22 20:24 12/15/22 21:15 Temperature 98.0 F 97.7 F Pulse Rate 93 84 Respiratory Rate 22 H 17 Blood Pressure 125/59 L 119/68 Pulse Oximetry 94 93 95 Oxygen Delivery Room Air 12/16/22 05:27 12/16/22 08:44 Temperature 97.7 F Pulse Rate 82 Respiratory Rate 17 Blood Pressure 109/58 L Pulse Oximetry 94 94 Oxygen Delivery Room Air Intake/Output Intake/Output: Intake & Output 12/13/22 12/14/22 12/15/22 12/16/22 23:59 23:59 23:59 23:59 Intake Total 2570 940 920 550 Output Total 2250 Balance 320 940 920 550 Meds/Results Medications: Active Medications Generic Name Dose Route Start Last Admin Trade Name Freq PRN Reason Stop Dose Admin Acetaminophen 325 mg 12/11/22 09:06 12/11/22 20:04 Acetaminophen 325 Mg Tablet PO 325 mg Q6H PRN Administration Pain or Fever Heparin Sodium (Porcine) 5,000 units 12/11/22 09:00 12/16/22 09:39 Heparin Sodium 5,000 Units/Ml Vial SUB-Q 5,000 units Q12HR CINDY Administration Sodium Chloride 1,000 mls @ 100 mls/hr 12/16/22 08:10 12/16/22 09:33 Normal Saline Iv IV CONT 100 mls/hr .Q10H CINDY Administration Losartan Potassium 100 mg 12/11/22 09:00 12/16/22 09:36 Losartan Potassium 100 Mg Tablet PO 100 mg DAILY CINDY Administration Memantine 5 mg 12/11/22 09:00 12/16/22 09:36 Memantine 5 Mg Tablet PO 5 mg BID CINDY Administratio
[2022-12-17 05:26] VITALS: BP 118/52; PULSE 82; RESP 17; TEMP 37; O2SAT 94
[2022-12-17] MEDS: SODIUM CHLORIDE 0.9% IV 1,000 ML 100 ML IV CONT ×2 (05:46→15:54)
[2022-12-17 06:52] LABS: Hematocrit 28.6 % (37.0-47.0); Hemoglobin 8.4 g/dL (12.0-15.0); Mean Corpuscular HGB Conc 29.4 g/dl (32-36); Mean Corpuscular Hemoglobin 27.2 pg (26-34); Mean Corpuscular Volume 92.6 fl (80-100); Mean Platelet Volume 10.6 fl (7.4-10.4); Platelet Count Result 160 k/mm3 (150-375); Red Blood Count 3.09 M/mm3 (4.2-5.4); Red Cell Distribution Width 17.2 % (11.5-14.5); White Blood Count 4.1 K/mm3 (4.5-10.0)
[2022-12-17 07:04] LABS: Anion Gap 5 mmol/L (8-16); Blood Urea Nitrogen 14 mg/dL (7-17); Calcium 7.9 mg/dL (8.4-10.2); Carbon Dioxide 20 mmol/L (22-30); Chloride 115 mmol/L (98-107); Estimated CRCL calculation 24 ml/min; Estimated Glomerular Filt Rate 43; Glucose 79 mg/dL (65-110); Potassium 4.2 mmol/L (3.4-5.0); Sodium 140 mmol/L (137-145)
[2022-12-17] MEDS: FLUTICASONE/SALMETEROL 115-21 MCG INHALER 1 PUFF 2 PUFF INHALATION (08:44)
[2022-12-17 08:45] VITALS: O2SAT 92
[2022-12-17 09:42] VITALS: RESP 18; O2SAT 92
[2022-12-17] MEDS: HEPARIN SODIUM 5,000 UNITS/ML VIAL 5000 UNITS SUB-Q ×2 (09:52→21:37)
[2022-12-17] MEDS: RALOXIFENE HCL (*CHEMO) 60 MG TABLET PO (09:52)
[2022-12-17] MEDS: MEMANTINE 5 MG TABLET PO ×2 (09:52→16:34)
[2022-12-17] MEDS: LOSARTAN POTASSIUM 100 MG TABLET PO (09:52)
[2022-12-17] MEDS: VENLAFAXINE HCL XR 75 MG CAP.ER.24H 150 MG PO (09:52)
[2022-12-17] MEDS: POTASSIUM CHLORIDE 10 MEQ ER TABLET PO (09:53)
--- NOTE | 2022-12-17 12:27 | PM.IMPN ---
Progress Note: A&P Assessment and Plan (1) Sheila UTI: Code(s): B37.49 - Other urogenital candidiasis Status: Acute Assessment and Plan: SEE BELOW - much the same continue current treatment (2) Chronic obstructive pulmonary disease: Code(s): J44.9 - Chronic obstructive pulmonary disease, unspecified Status: Acute (3) COPD with acute exacerbation: Code(s): J44.1 - Chronic obstructive pulmonary disease with (acute) exacerbation Status: Acute Plan 1) UTI, asymptomatic - reported sheila at assisted living. no fungal growth here, fluconazole stopped - e coli, received total 7 day course, ceftriaxone and bactrim - Urine culture obtained on admission reported positive for e coli UTI sensitive to Bactrim. - creat is 1.2 continue Bactrim for another 7 days - blood culture positive staph epidermis x1 from 12/11. likely contaminant. repeat blood cultures on 12/15 pending. 2) sob - sob resolved after duoneb - mild COPD excerbation 3) CKD stage III - renal dosing meds - pt npt eating or drinking much very tired all day encouraged to eat - continue iv fluids until annamaria hopeful dc annamaria back to [facility] Subjective Date/time seen: 12/17/22 12:27 Interval history: 82F w/ dementia, anxiety and depression, HTN, CKD stage III, COPD, HLD, osteoporosis presents from long-term with reports of sheila positive urine culture. Pt is still quite confused today does have history of dementia, continue to treat UTI await clinical improvement DC backto her [facility] when better Review of Systems Review of Systems: Confusion +disoriented x3 All systems reviewed & are unremarkable except as noted in HPI and below Exam Const: General: comfortable and no acute distress Other: A&O x 1 Eyes: Pupils: Equal, round and reactive pupils present Neck: Neck: supple Resp: Effort & Inspection: normal respiratory effort Auscultation: clear to auscultation bilaterally, no crackles, wheezes and diminished lung sounds Cardio: Rate: regular rate Rhythm: regular rhythm Heart sounds: no gallops, no murmurs and no rubs GI: Inspection: non-distended Auscultation: normal bowel sounds : General: Yes bladder normal to palpation Bimanual exam- vagina & uterus: bladder normal to palpation Urinary Catheter: Urinary Catheter: urine clear Neuro: Cranial nerves: Yes Equal, round and reactive pupils present Extrem: General: no edema Psych: Other: A&O x1. Objective Data Vital Signs Vital Signs: Vital Signs - 24 hr 12/16/22 14:38 12/16/22 20:33 12/16/22 20:35 Temperature 36.7 C Pulse Rate 79 87 Respiratory Rate 16 20 Blood Pressure 124/69 Pulse Oximetry 93 91 Oxygen Delivery Room Air 12/16/22 20:54 12/16/22 21:01 12/16/22 20:00 Temperature 36.6 C 36.4 C Pulse Rate 89 65 Respiratory Rate 17 18 Blood Pressure 112/58 L 130/76 Pulse Oximetry 96 100 Oxygen Delivery Room Air 12/17/22 05:26 12/17/22 08:45 12/17/22 09:42 Temperature 37.0 C Pulse Rate 82 Respiratory Rate 17 18 Blood Pressure 118/52 L Pulse Oximetry 94 92 92 Oxygen Delivery Room Air Room Air Intake/Output Intake/Output: Intake & Output 12/14/22 12/15/22 12/16/22 12/17/22 23:59 23:59 23:59 23:59 Intake Total 327 886 6695 1120 Balance 842 905 5052 1120 Meds/Results Medications: Active Medications Generic Name Dose Route Start Last Admin Trade Name Freq PRN Reason Stop Dose Admin Acetaminophen 325 mg 12/11/22 09:06 12/11/22 20:04 Acetaminophen 325 Mg Tablet PO 325 mg Q6H PRN Administration Pain or Fever Heparin Sodium (Porcine) 5,000 units 12/11/22 09:00 12/17/22 09:52 Heparin Sodium 5,000 Units/Ml Vial SUB-Q 5,000 units Q12HR CINDY Administration Sodium Chloride 1,000 mls @ 100 mls/hr 12/16/22 08:10 12/17/22 05:46 Normal Saline Iv IV CONT 100 mls/hr .Q10H CINDY Administration Losartan Potassium
[2022-12-17 14:35] VITALS: BP 128/68; PULSE 80; RESP 20; TEMP 36; O2SAT 95
[2022-12-17 20:19] VITALS: BP 146/74; PULSE 89; RESP 18; TEMP 36.4; O2SAT 91
[2022-12-17] MEDS: PRAVASTATIN SODIUM 20 MG TABLET 40 MG PO (21:36)
[2022-12-17] MEDS: ACETAMINOPHEN 325 MG TABLET PO (21:37)
[2022-12-17] MEDS: SULFAMETHOXAZOLE/TRIMETHOPRIM 800/160 MG DS TABLET 1 TAB PO (21:38)
--- NOTE | 2022-12-17 23:04 | PCRCNOTE ---
Window of time for administration has passed. See next scheduled administration.
[2022-12-18 05:43] LABS: Hematocrit 29.4 % (37.0-47.0); Hemoglobin 8.4 g/dL (12.0-15.0); Mean Corpuscular HGB Conc 28.6 g/dl (32-36); Mean Corpuscular Hemoglobin 27.2 pg (26-34); Mean Corpuscular Volume 95.1 fl (80-100); Mean Platelet Volume 10.2 fl (7.4-10.4); Platelet Count Result 154 k/mm3 (150-375); Red Blood Count 3.09 M/mm3 (4.2-5.4); Red Cell Distribution Width 17.4 % (11.5-14.5); White Blood Count 4.1 K/mm3 (4.5-10.0)
[2022-12-18 06:00] VITALS: BP 118/76; PULSE 84; RESP 18; TEMP 36.9; O2SAT 90
[2022-12-18 06:05] LABS: Anion Gap 7 mmol/L (8-16); Blood Urea Nitrogen 11 mg/dL (7-17); Calcium 8.1 mg/dL (8.4-10.2); Carbon Dioxide 16 mmol/L (22-30); Chloride 117 mmol/L (98-107); Estimated CRCL calculation 31 ml/min; Estimated Glomerular Filt Rate 60; Glucose 76 mg/dL (65-110); Potassium 4.1 mmol/L (3.4-5.0); Sodium 140 mmol/L (137-145)
[2022-12-18] MEDS: ACETAMINOPHEN 325 MG TABLET PO (09:48)
[2022-12-18] MEDS: MEMANTINE 5 MG TABLET PO (09:49)
[2022-12-18] MEDS: SULFAMETHOXAZOLE/TRIMETHOPRIM 800/160 MG DS TABLET 1 TAB PO (09:49)
[2022-12-18] MEDS: POTASSIUM CHLORIDE 10 MEQ ER TABLET PO (09:49)
[2022-12-18] MEDS: VENLAFAXINE HCL XR 75 MG CAP.ER.24H 150 MG PO (09:49)
[2022-12-18] MEDS: HEPARIN SODIUM 5,000 UNITS/ML VIAL 5000 UNITS SUB-Q (09:49)
[2022-12-18] MEDS: RALOXIFENE HCL (*CHEMO) 60 MG TABLET PO (09:49)
[2022-12-18] MEDS: LOSARTAN POTASSIUM 100 MG TABLET PO (09:49)
[2022-12-18] MEDS: FLUTICASONE/SALMETEROL 115-21 MCG INHALER 1 PUFF 2 PUFF INHALATION (10:23)
[2022-12-18 10:26] VITALS: O2SAT 93
[2022-12-18 10:47] VITALS: TEMP 36.9
--- NOTE | 2022-12-18 13:15 | PM.DS ---
DS: Admitting Diagnosis Discharge Date 12/18/2022 Admitting Diagnosis ?confused? DS: Discharge Diagnosis Discharge Diagnosis (1) Gina UTI: Code(s): B37.49 - Other urogenital candidiasis Status: Acute Assessment and Plan: SEE BELOW - much the same continue current treatment (2) Chronic obstructive pulmonary disease: Code(s): J44.9 - Chronic obstructive pulmonary disease, unspecified Status: Acute (3) COPD with acute exacerbation: Code(s): J44.1 - Chronic obstructive pulmonary disease with (acute) exacerbation Status: Acute Plan 1) UTI, asymptomatic - reported gina at assisted living. no fungal growth here, fluconazole stopped - e coli, received total 7 day course, ceftriaxone and bactrim - Urine culture obtained on admission reported positive for e coli UTI sensitive to Bactrim. - creat is 1.2 continue Bactrim for another 7 days - blood culture positive staph epidermis x1 from 12/11. likely contaminant. repeat blood cultures on 12/15 are negative 2) sob - sob resolved after duoneb - mild COPD excerbation 3) CKD stage III - renal dosing meds - pt npt eating or drinking much very tired all day encouraged to eat - continue iv fluids until annamaria DS: Summary Hospital Course Hospital Course: 82F w/ dementia, anxiety and depression, HTN, CKD stage III, COPD, HLD, osteoporosis presents from [facility] with reports of gina positive urine culture. Pt is still quite confused today does have history of dementia, continue to treat UTI , ecoli grown in urine. pt is clinical betterDC backto her [facility]? when better Time Spent with Patient Time attestation: Total time spent providing and/or coordinating discharge services: Exam Const: General: comfortable and no acute distress Other: A&O x 1 Eyes: Pupils: Equal, round and reactive pupils present Neck: Neck: supple Resp: Effort & Inspection: normal respiratory effort Auscultation: clear to auscultation bilaterally, no crackles, wheezes and diminished lung sounds Cardio: Rate: regular rate Rhythm: regular rhythm Heart sounds: no gallops, no murmurs and no rubs GI: Inspection: non-distended Auscultation: normal bowel sounds : General: Yes bladder normal to palpation Bimanual exam- vagina & uterus: bladder normal to palpation Urinary Catheter: Urinary Catheter: urine clear Neuro: Cranial nerves: Yes Equal, round and reactive pupils present Extrem: General: no edema Psych: Other: A&O x1. DS: Data Data Completed and Pending Labs on day of discharge: Labs from last 24 hours 12/18/22 05:26 WBC 4.1 L RBC 3.09 L Hgb 8.4 L Hct 29.4 L MCV 95.1 MCH 27.2 MCHC 28.6 L RDW 17.4 H Plt Count 154 MPV 10.2 Sodium 140 Potassium 4.1 Chloride 117 H Carbon Dioxide 16 L Anion Gap 7 L BUN 11 Creatinine 0.90 Estim Creat Clear Calc 31 Estimated GFR 60 Glucose 76 Calcium 8.1 L Preliminary micro results at discharge 12/15/22 14:51 Blood Culture - Preliminary Blood 12/15/22 14:45 Blood Culture - Preliminary Blood Discharge Plan Discharge Attending physician on discharge: Chika Whitehead Consulting providers: Alanna Ramos; Yeison Kilgore Discharging Clinician: Chika Whitehead Anticipated Discharge Date/Time: 12/18/22 13:13 Patient Disposition: NH Group Home/Asst Living Activity: as tolerated Diet: as tolerated Patient Instructions: Antibiotic Form, Pain Management (DC) Stand Alone Forms: General Discharge Information Follow-up/Referrals: Cricket Rendon MD [Primary Care Provider] - Discharge Medications: New sulfamethoxazole-trimethoprim 800-160 mg Tablet 1 tab PO Q12HR Qty: 14 0RF Continued potassium chloride 10 mEq capsule, extended release 10 meq PO DAILY spironolactone 25 mg tablet 25 mg PO DAILY Hold Instructions: Hold his blood pressure medication due to low normal
[2022-12-18 14:00] VITALS: BP 124/72; PULSE 65; RESP 14; TEMP 36.4; O2SAT 96
== END 2022-12-18 18:14 | DRG 690 ==
LOC: ANHED 12-11 01:52 → ANH2MED 12-11 02:39
PROVIDERS: General Practice; Admitting Provider Internal Medicine; Emergency Provider Emergency Medicine; PCP Family Medicine; Visit Provider Family Medicine
DX: N39.0 Urinary tract infection, site not specified (principal); B96.20 Unspecified Escherichia coli [E. coli] as the cause of diseases classified elsewhere; J44.1 Chronic obstructive pulmonary disease with (acute) exacerbation; E78.5 Hyperlipidemia, unspecified; E55.9 Vitamin D deficiency, unspecified; F41.9 Anxiety disorder, unspecified; F32.A Depression, unspecified; F03.90 Unspecified dementia, unspecified severity, without behavioral disturbance, psychotic disturbance, mood disturbance, and anxiety; I12.9 Hypertensive chronic kidney disease with stage 1 through stage 4 chronic kidney disease, or unspecified chronic kidney disease; J44.9 Chronic obstructive pulmonary disease, unspecified; M81.0 Age-related osteoporosis without current pathological fracture; M19.90 Unspecified osteoarthritis, unspecified site; N18.30 Chronic kidney disease, stage 3 unspecified; Z87.891 Personal history of nicotine dependence; Z90.710 Acquired absence of both cervix and uterus; Z66 Do not resuscitate
CPT/HCPCS: 36415; 71045; 80048; 80053; 81001; 82948; 83605; 83880; 84145; 85025; 85027; 87040; 87077; 87086; 87147; 87181; 87186; 94640; 96361; 96365; 96366; 96372; 96375; 97110; 97161; 97530; 99285; A9270; G0378; J0696; J1644; J2248; J7030

== ENCOUNTER 2023-01-23 17:19 | Emergency (ER) | payer MEDICARE, SELFPAY ==
[2023-01-23] VITALS (9 sets, daily range): BP systolic 104–114; BP diastolic 55–58; PULSE 86–93; RESP 16–29; TEMP 36.9; O2SAT 89–97
--- NOTE | ~2023-01-23 | XR_ITS ---
EXAMINATION: XR chest 1V portable DATE: 01/23/2023 18:13 INDICATION: Dyspnea. Altered mental status. TECHNIQUE: A single frontal view of the chest was obtained. COMPARISON: Chest view 12/14/2022, chest CT 09/14/2022 FINDINGS: There are lucencies in the lungs, consistent with emphysema. There is mild atelectasis vers us scarring in the lower lung zones. No pleural effusion or pneumothorax. The heart size is normal. T here is a moderate-sized hiatal hernia. Breast implants are noted. IMPRESSION: 1. Stable mild atelectasis versus scarring in the lower lung zones. 2. Emphysema. 3. Moderate-sized hiatal hernia. Reviewed, dictated and finalized at location E. INE REPAIRER
--- NOTE | 2023-01-23 17:24 | ED.SOB ---
HPI - SOB/Dyspnea General Chief Complaint: Shortness of Breath/Dyspnea Stated Complaint: DYSPNEA, LOW O2 Time Seen by Provider: 01/23/23 17:24 Source: EMS Mode of arrival: EMS History of Present Illness HPI Narrative: 82 years old white female [facility] because of shortness of breath. History of COPD had recent diagnosis of pneumonia and urinary tract infection oxygenation on room air was in the 80s, in the ambulance low 90s, patient is oriented to her name only which is her baseline. In the ED O2 saturation on room air 92%. History of dementia came a patient does not look in pain or distress at this time According to jail staff and patient is started on Cipro for urinary tract infection recently. Related Data Home Medications Medication Instructions Recorded Confirmed pravastatin 40 mg tablet 40 mg PO HS 04/10/20 12/11/22 potassium chloride 10 mEq 10 meq PO DAILY 11/18/20 12/11/22 capsule,extended release spironolactone 25 mg tablet 25 mg PO DAILY 11/18/20 12/11/22 furosemide 40 mg tablet 40 mg PO DAILY 09/14/22 12/11/22 memantine 5 mg tablet 5 mg PO BID 09/14/22 12/11/22 acetaminophen 325 mg tablet 325 mg PO Q6H PRN Pain or Fever 12/11/22 12/11/22 Allergies Allergy/AdvReac Type Severity Reaction Status Date / Time No Known Allergies Allergy Verified 06/07/22 22:11 Review of Systems Review of Systems: ROS unobtainable: Yes unobtainable due to mental status PMFSH Past Medical History Medical History Anxiety and depression Benign essential hypertension Chronic kidney disease, stage 3 Chronic obstructive pulmonary disease Dementia Hiatal hernia Mixed hyperlipidemia Osteoporosis Personal history of nicotine dependence Primary osteoarthritis involving multiple joints Vitamin D deficiency Surgical History Surgical History History of bilateral breast implants History of hysterectomy Family History Family History Mother Family history of heart disease in male family member before age 55 Social History Social History Social History: Surrogate decision maker: Randy Head (son) or Mariam Lewis (sister). Code status: Do not resuscitate. Smoking packs per day: 1 Smoking cigarettes per day: 20.0 Years smoked: 59 Smoking pack-years: 59.00 Smoking status: Never smoker Alcohol intake: never Substance use: never Substance use type: does not use Additional living arrangements comments: [facility]. Additional occupation/education comments: Retired. Spiritual care concerns: No Exam Narrative: General appearance: Well-developed, well-nourished Skin: Normal color Head: Normocephalic, nontraumatic Eyes: Clear conjunctiva ENT: Oropharynx normal, ears normal, nose normal Neck: Supple, nontender Chest and respiratory: Airway patent, no respiratory distress, no accessory muscle use Heart: Regular rate/rhythm Abdomen: Soft, nontender, no organomegaly, quiet bowel sounds Vascular: Normal peripheral pulses, normal capillary refill. Musculoskeletal: Normal range of motion, nontender back Neurologic: Alert and oriented ?3, SCRAPER TENDER is normal as tested, no gross motor deficit Course Vital Signs Vital signs: Vital Signs Temperature 36.9 C 01/23/23 17:23 Pulse Rate 86 01/23/23 17:23 Respiratory Rate 27 H 01/23/23 17:23 Blood Pressure 114/55 L 01/23/23 17:23 Pulse Oximetry 94 01/23/23 17:23 Oxygen Delivery
--- NOTE | 2023-01-23 17:25 | ECG_ITS ---
Measurements Intervals [address] Rate: 88 P: 79 LA: 141 QRS: 50 QRSD: 81 T: -44 QT: 359 QTc: 436 Interpretive Statements SINUS RHYTHM WITH SINUS ARRHYTHMIA ST DEVIATION AND MODERATE T-WAVE ABNORMALITY, BASELINE ARTIFACT COMPARED TO ECG 09/13/2022 23:06:24 SINUS ARRHYTHMIA NOW PRESENT Electronically Signed On 01-23-2023 19:21:25 PHOTOSTAT OPERATOR by Kimberly Espinoza M.D.
[2023-01-23 17:48] LABS: Basophils Percent Auto 0.3 % (0.2-1.2); Eosinophils Percent Auto 0.3 % (0-4.4); Hematocrit 29.6 % (37.0-47.0); Hemoglobin 8.8 g/dL (12.0-15.0); Immature Granulocyte Absolute 0.04 K/mm3 (0.00-0.031); Immature Granulocyte Percent A 0.4 % (0-0.5); Lymphocytes Percent Auto 11.8 % (18.3-44.2); Mean Corpuscular HGB Conc 29.7 g/dl (32-36); Mean Corpuscular Hemoglobin 26.1 pg (26-34); Mean Corpuscular Volume 87.8 fl (80-100); Mean Platelet Volume 10.2 fl (7.4-10.4); Monocytes Absolute Auto 0.9 K/mm3 (0.1-0.6); Monocytes Percent Auto 8.8 % (2.6-8.5); Neutrophils Percent Auto 78.4 % (45.5-73.1); Platelet Count Result 180 k/mm3 (150-375); Red Blood Count 3.37 M/mm3 (4.2-5.4); Red Cell Distribution Width 17.3 % (11.5-14.5); White Blood Count 10.2 K/mm3 (4.5-10.0)
[2023-01-23 17:55] LABS: Alveolar/Arterial O2 Gradient 55.5 mmHg; Base Excess ABG 0.3 mEq/l (+/-2.0); Fractional Inspired Oxygen 21 %; HCO3 ABG 23.4 mEq/l (22.0-26.0); Lactic Acid Reflex 1.5 mmol/L (0.7-2.0); Oxygen Content ABG 12.4 %vol (16.0-22.0); Oxygen Saturation ABG 91.5 % (95.0-100.0); Oxyhemoglobin 87.9 % THb (90.0-100.0); PO2 ABG 55.9 mmHg (80.0-100.0); PO2 FiO2 Ratio Arterial Blood 2.66 %; pH ABG 7.481 (7.350-7.450)
[2023-01-23 17:56] LABS: Alanine Aminotransferase 12 U/L (6-35); Albumin Level 3.9 g/dL (3.5-5.1); Alkaline Phosphatase 57 U/L (38-126); Anion Gap 7 mmol/L (8-16); Aspartate Amino Transferase 29 U/L (14-36); Bilirubin,Total 0.4 mg/dL (0.2-1.3); Blood Urea Nitrogen 28 mg/dL (7-17); Carbon Dioxide 25 mmol/L (22-30); Chloride 103 mmol/L (98-107); Estimated Glomerular Filt Rate 43; Glucose 99 mg/dL (65-110); INR 1.2; Potassium 4.4 mmol/L (3.4-5.0); Prothrombin Time 15.5 Seconds (11.1-14.7); Sodium 135 mmol/L (137-145)
[2023-01-23 17:58] LABS: Modified Allen's Test Pass; Site Drawn LEFT RADIAL
[2023-01-23 18:05] LABS: Hypochromasia 1+ (NORMAL); Ovalocytes 1+ (NORMAL); Platelet Estimate Adequate (Adequate)
[2023-01-23 18:06] LABS: Schistocytes None Seen (NORMAL)
[2023-01-23 18:09] LABS: NT Pro B Type Natriuretic Pept 1160 pg/mL (19.9-100); Troponin I < 0.012 ng/mL (0.000-0.034)
[2023-01-23 19:41] LABS: Influenza A QL RT-PCR Negative (Negative); Influenza B QL RT-PCR Negative (Negative); RSV RNA, RT-PCR Negative (Negative); SARS-CoV-2 RNA PCR Negative (Negative)
[2023-01-23] MEDS: IPRATROPIUM BR 0.02% INH SOLN 0.5 MG/2.5 ML VIAL INHALATION ×2 (19:53→20:21)
[2023-01-23] MEDS: methylPREDNISolone SOD SUCC 40 MG VIAL IV PUSH (19:59)
[2023-01-23] MEDS: ALBUTEROL SULFATE NEB 2.5 MG/3 ML INH INHALATION ×2 (20:21→20:22)
--- NOTE | 2023-01-23 21:20 | PC.NURSE ---
Attempted to call report. No answer.
== END 2023-01-23 21:40 ==
PROVIDERS: Emergency Provider Emergency Medicine; PCP Family Medicine
DX: J43.9 Emphysema, unspecified (principal); Z20.822 Contact with and (suspected) exposure to COVID-19; F03.90 Unspecified dementia, unspecified severity, without behavioral disturbance, psychotic disturbance, mood disturbance, and anxiety; N18.30 Chronic kidney disease, stage 3 unspecified; E78.2 Mixed hyperlipidemia; E55.9 Vitamin D deficiency, unspecified; M81.0 Age-related osteoporosis without current pathological fracture; M19.90 Unspecified osteoarthritis, unspecified site; Z66 Do not resuscitate; Z87.440 Personal history of urinary (tract) infections; Z87.01 Personal history of pneumonia (recurrent); Z90.710 Acquired absence of both cervix and uterus; K44.9 Diaphragmatic hernia without obstruction or gangrene; R94.31 Abnormal electrocardiogram [ECG] [EKG]
CPT/HCPCS: 36415; 36600; 71045; 80053; 82805; 83605; 83880; 84484; 85025; 85610; 85730; 87040; 87637; 93005; 96374; 99284; A9270; J2920

== ENCOUNTER 2023-05-22 11:33 | Inpatient (IN) | payer MEDICARE, SELFPAY ==
[2023-05-22] VITALS (39 sets, daily range): BP systolic 84–117; BP diastolic 40–70; PULSE 73–90; RESP 14–26; TEMP 36.4–37.1; O2SAT 79–100
--- NOTE | ~2023-05-22 | CT_ITS ---
CT head without contrast Indication: Altered mental status Technique: Serial scans were obtained through the brain without the administration of contrast. Dose reduction technique was used on this scan by utilizing automated exposure control and iterative recon struction technique. The dose-length product (DLP) was 681.00 mGy-cm. Findings: There is no evidence of intracranial hemorrhage, mass lesion, or acute infarct. The ventri cles and subarachnoid spaces are dilated, consistent with moderate to advanced atrophy. Low attenuat ion regions are seen within the periventricular white matter bilaterally, likely representing changes from chronic microvascular ischemic disease. There is no evidence of edema, mass effect or midline shift. The visualized paranasal sinuses and mastoid air cells are clear. Impression: No intracranial hemorrhage, mass, or acute infarct. Atrophy and chronic white matter changes, as above. Reviewed, dictated and finalized at location . Impression: No intracranial hemorrhage, mass, or acute infarct. Atrophy and chronic white matter changes, as above.
--- NOTE | ~2023-05-22 | XR_ITS ---
EXAMINATION: XR chest 1V DATE: 05/22/2023 13:04 INDICATION: Altered mental status. Weakness. Urinary tract infection. TECHNIQUE: A single frontal view of the chest was obtained on 2 radiographs. COMPARISON: Chest one view 01/23/2023 FINDINGS: There is mild atelectasis in the lower lung zones. No pleural effusion or pneumothorax. The heart size is normal. Breast implants are noted. There is a moderate-sized hiatal hernia. IMPRESSION: 1. Mild atelectasis in the lower lung zones. 2. Moderate-sized hiatal hernia. Reviewed, dictated and finalized at location A.
--- NOTE | 2023-05-22 12:18 | ED.FEMALEGU ---
HPI - Female Genitourinary General Chief complaint: Urogenital-Female Stated complaint: severe UTI Time Seen by Provider: 05/22/23 11:59 Source: patient and family (son and daughter) Mode of arrival: ambulatory Limitations: no limitations History of Present Illness HPI Narrative: Patient presents with family from [facility] memory care unit. Staff had reported to patient's family that her urine was white and milky and foul smelling. Family's concern for urinary tract infection. They note that she has been on 2 courses of antibiotics over the past month. They are concerned as she is not at baseline and feel that she does not regularly get baths or showers. She has been more weak than normal and with decreased activity per family, tired and more confused and less conversant. They are in the process of trying to get her transferred to [facility] in [place]. Patient states her name is Rolando. Family reports that she normally is oriented to herself and them but not to the date or situation. Rolando is not a family name or a nickname / inside joke; however they believe that their mother is trying to make a joke. Meds per OR also include: losartan, Raloxifene, and venlafaxine PCP listed per OR documentation: Honey Santiago Related Data Home Medications Medication Instructions Recorded Confirmed pravastatin 40 mg tablet 40 mg PO HS 04/10/20 05/22/23 potassium chloride 10 mEq 10 meq PO DAILY 11/18/20 05/22/23 capsule,extended release spironolactone 25 mg tablet 25 mg PO DAILY 11/18/20 05/22/23 furosemide 40 mg tablet 40 mg PO DAILY 09/14/22 05/22/23 memantine 5 mg tablet 5 mg PO BID 09/14/22 05/22/23 acetaminophen 325 mg tablet 325 mg PO Q6H PRN Pain or Fever 12/11/22 05/22/23 quetiapine 25 mg tablet 25 mg PO HS 05/22/23 05/22/23 Allergies Allergy/AdvReac Type Severity Reaction Status Date / Time No Known Allergies Allergy Verified 06/07/22 22:11 [facility] Past Medical History Medical History Age-related osteoporosis with current pathological fracture Anxiety and depression Benign essential hypertension Chronic kidney disease, stage 3 Chronic obstructive pulmonary disease Dementia in other diseases classified elsewhere, unspecified severity, without behavioral disturbance, psychotic disturbance, mood disturbance, and anxiety Hiatal hernia Hypertension secondary to other renal disorders Hypoxemia Major depressive disorder, recurrent, unspecified Mixed hyperlipidemia Personal history of nicotine dependence Primary osteoarthritis involving multiple joints Thrombocytopenia UTI (urinary tract infection) Vitamin D deficiency Surgical History Surgical History History of bilateral breast implants History of hysterectomy Family History Family History Mother Family history of heart disease in male family member before age 55 Social History Social History Social History: Surrogate decision maker: Randy Head (son) or Mariam Lewis (sister). Code status: Do not resuscitate (NH documentation from [facility] lists Full Code but family denies this) Smoking packs per day: 1 Smoking cigarettes per day: 20.0 Years smoked: 59 Smoking pack-years: 59.00 Smoking status: Never smoker Alcohol intake: never Substance use: never Substance use type: does not use Additional living arrangements comments: [facility] since 06/12/2020. Additional occupation/education comments: Retired. Additional gender identity comments: Spiritual care concerns: No (no answer ams) Exam Narrative: GENERAL: appears stated age. well-nourished, and in no acute distress. HEAD: Normocephalic, atraumatic. EYES: Non injected, non icteric
[2023-05-22 12:31] LABS: Basophils Percent Auto 0.4 % (0.2-1.2); Eosinophils Absolute Auto 0.1 K/mm3 (0-0.3); Eosinophils Percent Auto 0.9 % (0-4.4); Hematocrit 33.8 % (37.0-47.0); Hemoglobin 10.2 g/dL (12.0-15.0); Immature Granulocyte Absolute 0.03 K/mm3 (0.00-0.031); Immature Granulocyte Percent A 0.4 % (0-0.5); Lymphocytes Absolute Auto 1.05 K/mm3 (0.9-3.2); Lymphocytes Percent Auto 15.1 % (18.3-44.2); Mean Corpuscular HGB Conc 30.2 g/dl (32-36); Mean Corpuscular Hemoglobin 27.1 pg (26-34); Mean Corpuscular Volume 89.7 fl (80-100); Mean Platelet Volume 9.9 fl (7.4-10.4); Monocytes Absolute Auto 0.4 K/mm3 (0.1-0.6); Neutrophils Absolute Auto 5.4 K/mm3 (1.3-6.7); Neutrophils Percent Auto 78.2 % (45.5-73.1); Platelet Count Result 203 k/mm3 (150-375); Red Blood Count 3.77 M/mm3 (4.2-5.4); White Blood Count 6.9 K/mm3 (4.5-10.0)
--- NOTE | 2023-05-22 12:36 | ECG_ITS ---
Measurements Intervals [place] Rate: 77 P: 82 NC: 143 QRS: 43 QRSD: 78 T: 51 QT: 350 QTc: 398 Interpretive Statements SINUS RHYTHM NONSPECIFIC ST SEGMENT ABNORMALITY BORDERLINE ECG COMPARED TO ECG 01/23/2023 17:56:11 NO SIGNIFICANT DIFFERENCE Electronically Signed On 05-23-2023 7:34:52 CDT by Riley Miller M.D.
[2023-05-22] MEDS: SODIUM CHLORIDE 0.9% IV 1,000 ML 999 ML IV CONT (12:42)
[2023-05-22 12:43] LABS: Alanine Aminotransferase 12 U/L (6-35); Alkaline Phosphatase 56 U/L (38-126); Anion Gap 5 mmol/L (4-12); Aspartate Amino Transferase 23 U/L (14-36); Bilirubin,Total 0.4 mg/dL (0.2-1.3); Blood Urea Nitrogen 32 mg/dL (7-17); Calcium 8.5 mg/dL (8.4-10.2); Carbon Dioxide 25 mmol/L (22-30); Chloride 105 mmol/L (98-107); Estimated Glomerular Filt Rate 39; Glucose 131 mg/dL (65-110); Magnesium 2.5 mg/dL (1.6-2.3); Potassium 4.6 mmol/L (3.4-5.0); Sodium 135 mmol/L (137-145)
[2023-05-22 12:52] LABS: Anisocytosis 1+; Platelet Estimate Adequate (Adequate)
[2023-05-22 12:53] LABS: Burr Cells 1+; Ovalocytes 2+; Schistocytes None Seen
[2023-05-22 13:46] LABS: Lactic Acid Reflex 1.5 mmol/L (0.7-2.0)
[2023-05-22 15:18] LABS: Appearance Urine Turbid (Clear); Bacteria Urine 4+ /hpf; Bilirubin Urine Negative (Negative); Blood Urine Non-Hemolyzed Trace (Negative); Color Urine Yellow (Yellow); Glucose Urine UA Negative (Negative); Ketones Urine Negative (Negative); Leukocyte Esterase Ur 3+ LEU/UL (Negative); Nitrate Urine Positive (Negative); Non Pathogenic Casts 0-2; Protein Urine Trace mg/dL (Negative); RBC Urine 0-2 /hpf (0-2); Specific Grav Ur 1.012 (1.001-1.035); Squamous Epithelial Cell Urine None Seen /hpf (Few); Urobilinogen Urine 0.2 mg/dL (<2.0); WBC Urine >100 /hpf (0-3); pH Urine 5.5 (5.0-9.0)
[2023-05-22 15:30] LABS: Add Urine Microscopic? YES
--- NOTE | 2023-05-22 18:40 | PM.IMHP ---
H&P: HPI History of Present Illness Date/Time: 05/22/23 18:40 Chief Complaint: Weakness Narrative: 83 y/o F presents here with generalized weakness and concerns for recurrent UTI with PMH of anxiety/depression, HTN, CKD S3, COPD, HLD, thrombocytopenia, vitamin-D deficiency, and dementia (baseline A&O x1). Patient presents here from [facility] via EMS for further evaluation of generalized weakness. Facility concerned patient has severe UTI. She has been on 2 courses of antibiotics over the past month. Patient's baseline is alert and orientated x1. Patient was placed on Macrobid 100 mg b.i.d. x7 days on 04/09/2023 and Bactrim 800/160 mg b.i.d. x7 days on 04/15/2023. Per son, his mother has been mumbling more today but can speak more clearly when asked a direct question multiple times. Patient appears pale but comfortable. Not able to endorse/deny pain, infectious symptoms, or urinary symptoms. Initial VS at presentation: 97.6? F, HR 90, RR 20, 8440, and 90% on RA. (increased to 95% on RA during ED course) ED workup showed: WBC 6.9, Hgb 10.2 (previously 8.8 in Jan), sodium 135, creatinine 1.3 with a GFR 39 (previously 1.2 on 01/23/2023), magnesium 2.5, and UA was turbid, trace non hemolyzed blood, positive nitrates, 3+ leuks, >100 WBC, 4+ bacteria, and no epithelial cells. Review of Systems Review of Systems: ROS unobtainable: Yes unobtainable due to mental status [facility] Past Medical History Medical History Age-related osteoporosis with current pathological fracture Anxiety and depression Benign essential hypertension Chronic kidney disease, stage 3 Chronic obstructive pulmonary disease Dementia in other diseases classified elsewhere, unspecified severity, without behavioral disturbance, psychotic disturbance, mood disturbance, and anxiety Hiatal hernia Hypertension secondary to other renal disorders Hypoxemia Major depressive disorder, recurrent, unspecified Mixed hyperlipidemia Personal history of nicotine dependence Primary osteoarthritis involving multiple joints Thrombocytopenia UTI (urinary tract infection) Vitamin D deficiency Surgical History Surgical History History of bilateral breast implants History of hysterectomy Family History Family History Mother Family history of heart disease in male family member before age 55 Social History Social History Social History: Surrogate decision maker: Randy Head (son) or Mariam Lewis (sister). Code status: Do not resuscitate (NH documentation from [facility] lists Full Code but family denies this) Smoking packs per day: 1 Smoking cigarettes per day: 20.0 Years smoked: 59 Smoking pack-years: 59.00 Smoking status: Never smoker Alcohol intake: never Substance use: never Substance use type: does not use Additional living arrangements comments: [facility] since 06/12/2020. Additional occupation/education comments: Retired. Additional gender identity comments: Spiritual care concerns: No Meds Home Medications and Allergies Home Medications Medication Instructions Recorded Confirmed Type raloxifene 60 mg tablet (Evista) 60 mg PO DAILY #90 tabs 04/05/19 12/11/22 Rx fluticasone furoate 100 1 inh inhalation DAILY #28 ea 12/13/19 12/11/22 Rx mcg-vilanterol 25 mcg/dose inhalation powder (Breo Ellipta) venlafaxine 150 mg 150 mg PO DAILY #90 caps 01/24/20 12/11/22 Rx capsule,extended release 24 hr pravastatin 40 mg tablet 40 mg PO HS 04/10/20 12/11/22 History losartan 100 mg tablet 100 mg PO DAILY #90 tabs 04/14/20 12/11/22 Rx potassium chloride 10 mEq 10 meq PO DAILY 11/18/20 12/11/22 History capsule,extended release spironolactone 25 mg tablet 25 mg P
[2023-05-22] MEDS: LACTATED RINGERS 1,000 ML 100 ML IV CONT (20:58)
--- NOTE | 2023-05-22 21:04 | PC.NURSE ---
patient being admitted with IV fluids
--- NOTE | 2023-05-22 21:12 | ADMGEN ---
This patient, Maxine Head, was admitted to 3 [facility] Room 315-01. Patient/family oriented to hospital policies and general routines including ID bracelet, bed and alarms, visiting hours, pain management, procedures, bathroom and other care routines, personal items, smoking policy, room service/diet, and visiting hours. Information on how to activate the Rapid Response Team has been discussed. Patient/Family are encouraged to report perceived risks to care and to ask questions if they do not understand what they are told or what they should do.
[2023-05-22] MEDS: MEROPENEM 1 GM/NS 100 ML 1 GM/100 ML BAG IVPB (21:39)
--- NOTE | 2023-05-22 23:57 | PC.NURSE ---
Weighing Station Operator spoke with Hilary QUINONEZ by phone and updated pt med list.
[2023-05-23 06:00] VITALS: BP 130/61; PULSE 79; RESP 20; TEMP 37.1; O2SAT 91
--- NOTE | 2023-05-23 06:51 | PM.IMPN ---
Progress Note: A&P Assessment and Plan (1) Sepsis: Code(s): A41.9 - Sepsis, unspecified organism Status: Acute Assessment and Plan: Meets SIRS criteria on admission: HR, RR, hypotensive - lactic acid: 1.5 -> 1.0 - 30 mL/kg = 1500. Patient estimated to weight 110 lbs - suspected source: UTI - blood cultures drawn on 05/21: NGTD - UA: Turbid appearance with positive nitrates, 3+ leukocytes, > 100 WBC, 4+ bacteria. - Urine culture pending - CXR: 1. Mild atelectasis in the lower lung zones. 2. Moderate-sized hiatal hernia. -Head CT No intracranial hemorrhage, mass, or acute infarct. Atrophy and chronic white matter changes, as above. -Trend labs (2) Acute UTI: Code(s): N39.0 - Urinary tract infection, site not specified Status: Acute Assessment and Plan: - UA: Turbid appearance with positive nitrates, 3+ leukocytes, > 100 WBC, 4+ bacteria. - UC obtained on 05/21: - previous micro reviewed 06/08/22: Ecoli, intermediate to Augmentin, resistant to ampicillin, Unasyn, and cefazolin 08/21/21: Ecoli, pansensitive, intermediate to Ancef 11/18/20: No growth 04/10/20: No growth - started on ceftriaxone on 05/21, received a dose of meropenem. Will continue ceftriaxone at this time due to no history of ESBL. Will adjust antibiotics based on culture sensitives. (3) Benign essential hypertension: Code(s): I10 - Essential (primary) hypertension Status: Acute Assessment and Plan: Chronic. On arrival patient was hypotensive at 84/40. Improved with IV fluids. Currently 130/61. - Restarted home medication - LR 100mls/hr IV - Continue to monitor (4) Dementia: Code(s): F03.90 - Unspecified dementia, unspecified severity, without behavioral disturbance, psychotic disturbance, mood disturbance, and anxiety Status: Acute Assessment and Plan: Patient is from [facility]. AOx1 at baseline. - Continue memantine Time Spent With Patient Time with patient: 25 - 35 minutes Subjective Date/time seen: 05/23/23 06:51 Interval history: 83 year old female with past medical history of dementia (AOx1 baseline), COPD, hypertension, hyperlipidemia, chronic kidney disease stage 3, and depression?presented to the hospital from [facility] for generalized weakness with concern for urinary tract infection. Patient is pleasantly confused lying in bed. She is alert and oriented only to self. She is not able to endorse or deny pain, urinary/bowel symptoms, infectious symptoms. Review of Systems Review of Systems: ROS unobtainable: Yes unobtainable due to mental status Exam Narrative: AF HR 79 RR 20 SpO2 91 BP 130/61 General: well nourished, well-developed female in no acute respiratory distress who is nontoxic appearing, lying semi recumbent in bed. HEENT: Normocephalic. Atraumatic. Pupils equal round reactive to light. Extraocular movement intact. Sclera clear and anicteric. No facial asymmetry. Chest: Lungs are clear to auscultation bilaterally. No wheezes or crackles. CV: Heart was regular rate and rhythm. S1-S2. No murmurs, gallops, or rubs. Abd: Abdomen was soft. Mild hypogastric tenderness. Nondistended. Positive bowel sounds. No organomegaly or masses. Ext: No clubbing, cyanosis, or edema. 2+ DP pulses bilaterally. Neuro: Patient is alert and oriented x1 (baseline). Speech is clear. Psych: Normal mood and affect. Patient is pleasant and cooperative. Skin: Warm and dry. No rashes noted. Objective Data Vital Signs Vital Signs: Vital Signs - 24 hr 05/22/23 11:47 05/22/23 12:02 05/22/23 12:15 Temperature 97.6 F Pulse Rate 90 81 83 Respiratory Rate 20 19 16 Blood Pressure 84/40 L Pulse Oximetry 90 79 L Oxygen Delivery Room Air 05/22/23 12:30 05/22/23 13:07 05/22/23 13:15 Temperature Pulse Rate 80 76 76 Respiratory Rate 21 H 20 18 Blood Pressure Pulse Oximetry 100 97 Oxygen Delivery 05/22/23 13:30 05/22/23 13:45
[2023-05-23 07:39] LABS: Basophils Percent Auto 0.4 % (0.2-1.2); Eosinophils Absolute Auto 0.1 K/mm3 (0-0.3); Eosinophils Percent Auto 1.3 % (0-4.4); Hematocrit 30.7 % (37.0-47.0); Hemoglobin 9.4 g/dL (12.0-15.0); Immature Granulocyte Absolute 0.04 K/mm3 (0.00-0.031); Immature Granulocyte Percent A 0.5 % (0-0.5); Lymphocytes Absolute Auto 1.35 K/mm3 (0.9-3.2); Lymphocytes Percent Auto 17.6 % (18.3-44.2); Mean Corpuscular HGB Conc 30.6 g/dl (32-36); Mean Corpuscular Hemoglobin 27.6 pg (26-34); Mean Platelet Volume 10.4 fl (7.4-10.4); Monocytes Absolute Auto 0.6 K/mm3 (0.1-0.6); Monocytes Percent Auto 7.4 % (2.6-8.5); Neutrophils Absolute Auto 5.6 K/mm3 (1.3-6.7); Neutrophils Percent Auto 72.8 % (45.5-73.1); Platelet Count Result 188 k/mm3 (150-375); Red Blood Count 3.41 M/mm3 (4.2-5.4); Red Cell Distribution Width 20.5 % (11.5-14.5); White Blood Count 7.7 K/mm3 (4.5-10.0)
[2023-05-23] MEDS: cefTRIAXone 2 GM/NS 100 ML 2 GM/100 ML BAG IVPB (09:18)
[2023-05-23 11:49] LABS: Alanine Aminotransferase 11 U/L (6-35); Albumin Level 3.5 g/dL (3.5-5.1); Alkaline Phosphatase 57 U/L (38-126); Anion Gap 6 mmol/L (4-12); Aspartate Amino Transferase 28 U/L (14-36); Bilirubin,Total 0.4 mg/dL (0.2-1.3); Blood Urea Nitrogen 23 mg/dL (7-17); Calcium 8.4 mg/dL (8.4-10.2); Carbon Dioxide 22 mmol/L (22-30); Chloride 105 mmol/L (98-107); Estimated Glomerular Filt Rate 48; Glucose 77 mg/dL (65-110); Potassium 4.2 mmol/L (3.4-5.0); Sodium 133 mmol/L (137-145)
[2023-05-23 13:57] VITALS: BMI 19.8
[2023-05-23 14:02] VITALS: BMI 19.8
[2023-05-23 15:49] VITALS: BP 124/78; PULSE 84; RESP 20; TEMP 36.3; O2SAT 95
[2023-05-23] MEDS: MEMANTINE 5 MG TABLET PO (16:23)
[2023-05-23] MEDS: LACTATED RINGERS 1,000 ML 100 ML IV CONT (16:25)
[2023-05-23 20:00] VITALS: BP 126/81; PULSE 81; RESP 18; TEMP 36.4; O2SAT 96
[2023-05-23] MEDS: PRAVASTATIN SODIUM 20 MG TABLET 40 MG PO (21:00)
[2023-05-23] MEDS: QUEtiapine FUMARATE 25 MG TABLET PO (21:00)
[2023-05-23] MEDS: ACETAMINOPHEN 325 MG TABLET 650 MG PO (21:00)
[2023-05-24] MEDS: LACTATED RINGERS 1,000 ML 100 ML IV CONT ×3 (02:19→23:50)
[2023-05-24 04:00] VITALS: BP 121/76; PULSE 78; RESP 16; TEMP 36.2; O2SAT 97
[2023-05-24] MEDS: FLUTICASONE/SALMETEROL 115-21 MCG INHALER 1 PUFF 2 PUFF INHALATION ×2 (07:21→20:20)
--- NOTE | 2023-05-24 07:49 | PM.IMPN ---
Progress Note: A&P Assessment and Plan (1) Sepsis: Code(s): A41.9 - Sepsis, unspecified organism Status: Acute Assessment and Plan: Meets SIRS criteria on admission: HR, RR, hypotensive - lactic acid: 1.5 -> 1.0 - 30 mL/kg = 1500. Patient estimated to weight 110 lbs - suspected source: UTI - blood cultures drawn on 05/21: NGTD - UA: Turbid appearance with positive nitrates, 3+ leukocytes, > 100 WBC, 4+ bacteria. - Urine culture pending - CXR: 1. Mild atelectasis in the lower lung zones. 2. Moderate-sized hiatal hernia. -Head CT No intracranial hemorrhage, mass, or acute infarct. Atrophy and chronic white matter changes, as above. -Trend labs Resolved (2) Acute UTI: Code(s): N39.0 - Urinary tract infection, site not specified Status: Acute Assessment and Plan: - UA: Turbid appearance with positive nitrates, 3+ leukocytes, > 100 WBC, 4+ bacteria. - UC obtained on 05/21: klebsiella pneumoniae with resistance to ciprofloxacin and macrobid, intermediate resistance to levofloxacin, sensitive to ceftriaxone. Continue current treatment. - previous micro reviewed 06/08/22: Ecoli, intermediate to Augmentin, resistant to ampicillin, Unasyn, and cefazolin 08/21/21: Ecoli, pansensitive, intermediate to Ancef 11/18/20: No growth 04/10/20: No growth - started on ceftriaxone on 05/21, received a dose of meropenem. Will continue ceftriaxone at this time due to no history of ESBL. (3) Benign essential hypertension: Code(s): I10 - Essential (primary) hypertension Status: Acute Assessment and Plan: Chronic. On arrival patient was hypotensive at 84/40. Improved with IV fluids. Currently 130/61. - Restarted home medication - LR 100mls/hr IV - Continue to monitor (4) Dementia: Code(s): F03.90 - Unspecified dementia, unspecified severity, without behavioral disturbance, psychotic disturbance, mood disturbance, and anxiety Status: Acute Assessment and Plan: Patient is from [facility]. AOx1 at baseline. Care coordination has been in contact with patients son Randy who has been trying to get patient into [facility]. Waiting on acceptance. - Continue memantine Time Spent With Patient Time with patient: 25 - 35 minutes Subjective Date/time seen: 05/24/23 07:49 Interval history: 83 year old female with past medical history of dementia (AOx1 baseline), COPD, hypertension, hyperlipidemia, chronic kidney disease stage 3, and depression?presented to the hospital from [facility] for generalized weakness with concern for urinary tract infection. Patient is more lethargic today. The nurse and I repositioned her in bed which further woke up the patient. She continues to be aox1. The urine culture revealed klebsiella pneumoniae which is sensitive to ceftriaxone. Will continue current treatment course. Review of Systems Review of Systems: ROS unobtainable: Yes unobtainable due to mental status Exam Narrative: AF HR 78 RR 16 SpO2 97 BP 121/76 General: faril female in no acute respiratory distress, lying semi recumbent in bed. HEENT: Normocephalic. Atraumatic. Pupils equal round reactive to light. Extraocular movement intact. Sclera clear and anicteric. No facial asymmetry. Chest: Lungs are clear to auscultation bilaterally. No wheezes or crackles. CV: Heart was regular rate and rhythm. S1-S2. No murmurs, gallops, or rubs. Abd: Abdomen was soft. Mild hypogastric tenderness. Nondistended. Positive bowel sounds. No organomegaly or masses. Ext: No clubbing, cyanosis, or edema. 2+ DP pulses bilaterally. Neuro: Patient is alert and oriented x1 (baseline). More lethargic than yesterday, but is able to follow commands. Speech is clear. Psych: Normal mood and affect. Patient is pleasant and cooperative. Skin: Warm and dry. No rashes noted. Objective Data Vital Signs Vital Signs: Vital Signs - 24 hr 05/23/23 09:25 05/23/23 15:49 05/23/23 20:00 T
[2023-05-24] MEDS: cefTRIAXone 2 GM/NS 100 ML 2 GM/100 ML BAG IVPB (08:26)
[2023-05-24] MEDS: VENLAFAXINE HCL XR 75 MG CAP.ER.24H 150 MG PO (08:26)
[2023-05-24] MEDS: LOSARTAN POTASSIUM 100 MG TABLET PO (08:27)
[2023-05-24] MEDS: SPIRONOLACTONE 25 MG TABLET PO (08:27)
[2023-05-24] MEDS: RALOXIFENE HCL (*CHEMO) 60 MG TABLET PO (08:27)
[2023-05-24] MEDS: POTASSIUM CHLORIDE 10 MEQ ER TABLET PO (08:27)
[2023-05-24] MEDS: FUROSEMIDE 40 MG TABLET PO (08:27)
[2023-05-24] MEDS: ENOXAPARIN 40 MG/0.4 ML SYRINGE SUB-Q (08:33)
[2023-05-24] MEDS: MEMANTINE 5 MG TABLET PO ×2 (13:37→18:18)
[2023-05-24 14:20] VITALS: O2SAT 92
[2023-05-24 20:00] VITALS: BP 114/62; PULSE 88; RESP 18; TEMP 36.6; O2SAT 91
[2023-05-24] MEDS: PRAVASTATIN SODIUM 20 MG TABLET 40 MG PO (20:25)
[2023-05-24] MEDS: QUEtiapine FUMARATE 25 MG TABLET PO (20:25)
[2023-05-24 20:44] VITALS: PULSE 89; O2SAT 90
[2023-05-25] VITALS (8 sets, daily range): BP systolic 114–151; BP diastolic 58–79; PULSE 68–124; RESP 16–22; TEMP 36.2–36.6; O2SAT 88–98
[2023-05-25] MEDS: FLUTICASONE/SALMETEROL 115-21 MCG INHALER 1 PUFF 2 PUFF INHALATION ×2 (07:15→20:31)
--- NOTE | 2023-05-25 08:06 | PM.IMPN ---
Progress Note: A&P Assessment and Plan (1) Sepsis: Code(s): A41.9 - Sepsis, unspecified organism Status: Acute Assessment and Plan: Meets SIRS criteria on admission: HR, RR, hypotensive - lactic acid: 1.5 -> 1.0 - 30 mL/kg = 1500. Patient estimated to weight 110 lbs - suspected source: UTI - blood cultures drawn on 05/21: NGTD - UA: Turbid appearance with positive nitrates, 3+ leukocytes, > 100 WBC, 4+ bacteria. - Urine culture pending - CXR: 1. Mild atelectasis in the lower lung zones. 2. Moderate-sized hiatal hernia. -Head CT No intracranial hemorrhage, mass, or acute infarct. Atrophy and chronic white matter changes, as above. -Trend labs Resolved (2) Acute UTI: Code(s): N39.0 - Urinary tract infection, site not specified Status: Acute Assessment and Plan: - UA: Turbid appearance with positive nitrates, 3+ leukocytes, > 100 WBC, 4+ bacteria. - UC obtained on 05/21: klebsiella pneumoniae with resistance to ciprofloxacin and macrobid, intermediate resistance to levofloxacin, sensitive to ceftriaxone. Continue current treatment. - previous micro reviewed 06/08/22: Ecoli, intermediate to Augmentin, resistant to ampicillin, Unasyn, and cefazolin 08/21/21: Ecoli, pansensitive, intermediate to Ancef 11/18/20: No growth 04/10/20: No growth - started on ceftriaxone on 05/21, received a dose of meropenem. Will continue ceftriaxone at this time due to no history of ESBL. (3) Hypoxia: Code(s): R09.02 - Hypoxemia Status: Acute Assessment and Plan: - SpO2: 88% RA, 98% on O2 - Oxygen supplementation started - Wean O2 supplementation for SpO2 > 92% - Suspected cause: unknown. lungs clear to auscultation on exam. - Chest XR: Mild atelectasis in the lower lung zones. - Continue to monitor (4) Benign essential hypertension: Code(s): I10 - Essential (primary) hypertension Status: Acute Assessment and Plan: Chronic. On arrival patient was hypotensive at 84/40. Improved with IV fluids. Currently 130/61. - Restarted home medication - LR 100mls/hr IV - Continue to monitor (5) Dementia: Code(s): F03.90 - Unspecified dementia, unspecified severity, without behavioral disturbance, psychotic disturbance, mood disturbance, and anxiety Status: Acute Assessment and Plan: Patient is from [facility]. AOx1 at baseline. Care coordination has been in contact with patients son Randy who has been trying to get patient into [facility]. Waiting on acceptance. - Continue memantine Time Spent With Patient Time with patient: 25 - 35 minutes Subjective Date/time seen: 05/25/23 08:06 Interval history: 83 year old female with past medical history of dementia (AOx1 baseline), COPD, hypertension, hyperlipidemia, chronic kidney disease stage 3, and depression?presented to the hospital from [facility] for generalized weakness with concern for urinary tract infection. 83 year old female lying in bed with family at bedside. Patient continues to be confused as per baseline. She is more alert today compared to yesterday. She was started on supplemental oxygen today due to a low SpO2 reading of 88%. Lungs remain clear on auscultation. Per patients son, Randy the plan is for placement at [facility] upon discharge. Care coordination following. Review of Systems Review of Systems: ROS unobtainable: Yes unobtainable due to mental status Exam Narrative: AF HR 68 RR 18 SpO2 98 BP 120/63 General: frail female in no acute respiratory distress, lying semi recumbent in bed. HEENT: Normocephalic. Atraumatic. Pupils equal round reactive to light. Extraocular movement intact. Sclera clear and anicteric. No facial asymmetry. Chest: Lungs are clear to auscultation bilaterally. No wheezes or crackles. CV: Heart was regular rate and rhythm. S1-S2. No murmurs, gallops, or rubs. Abd: Abdomen was soft. Mild hypogastric tenderness. Nondistended. Positive bowel sounds. No
[2023-05-25 08:29] LABS: Basophils Percent Auto 0.2 % (0.2-1.2); Eosinophils Absolute Auto 0.1 K/mm3 (0-0.3); Eosinophils Percent Auto 1.5 % (0-4.4); Hematocrit 30.9 % (37.0-47.0); Hemoglobin 9.4 g/dL (12.0-15.0); Immature Granulocyte Absolute 0.03 K/mm3 (0.00-0.031); Immature Granulocyte Percent A 0.4 % (0-0.5); Lymphocytes Absolute Auto 1.74 K/mm3 (0.9-3.2); Lymphocytes Percent Auto 21.3 % (18.3-44.2); Mean Corpuscular HGB Conc 30.4 g/dl (32-36); Mean Corpuscular Hemoglobin 27.4 pg (26-34); Mean Corpuscular Volume 90.1 fl (80-100); Mean Platelet Volume 10.5 fl (7.4-10.4); Monocytes Absolute Auto 0.6 K/mm3 (0.1-0.6); Monocytes Percent Auto 7.5 % (2.6-8.5); Neutrophils Absolute Auto 5.7 K/mm3 (1.3-6.7); Neutrophils Percent Auto 69.1 % (45.5-73.1); Platelet Count Result 182 k/mm3 (150-375); Red Blood Count 3.43 M/mm3 (4.2-5.4); White Blood Count 8.2 K/mm3 (4.5-10.0)
[2023-05-25 08:37] LABS: Anion Gap 7 mmol/L (4-12); Blood Urea Nitrogen 14 mg/dL (7-17); Calcium 8.4 mg/dL (8.4-10.2); Carbon Dioxide 25 mmol/L (22-30); Chloride 103 mmol/L (98-107); Estimated CRCL calculation 34 ml/min; Estimated Glomerular Filt Rate > 60; Glucose 93 mg/dL (65-110); Potassium 3.9 mmol/L (3.4-5.0); Sodium 135 mmol/L (137-145)
[2023-05-25] MEDS: FUROSEMIDE 40 MG TABLET PO (08:42)
[2023-05-25] MEDS: POTASSIUM CHLORIDE 10 MEQ ER TABLET PO (08:42)
[2023-05-25] MEDS: VENLAFAXINE HCL XR 75 MG CAP.ER.24H 150 MG PO (08:42)
[2023-05-25] MEDS: LOSARTAN POTASSIUM 100 MG TABLET PO (08:42)
[2023-05-25] MEDS: SPIRONOLACTONE 25 MG TABLET PO (08:43)
[2023-05-25] MEDS: MEMANTINE 5 MG TABLET PO (08:43)
[2023-05-25] MEDS: RALOXIFENE HCL (*CHEMO) 60 MG TABLET PO (08:43)
[2023-05-25] MEDS: ACETAMINOPHEN 325 MG TABLET 650 MG PO (08:45)
[2023-05-25] MEDS: cefTRIAXone 2 GM/NS 100 ML 2 GM/100 ML BAG IVPB (08:48)
[2023-05-25] MEDS: ENOXAPARIN 40 MG/0.4 ML SYRINGE SUB-Q (08:49)
[2023-05-25] MEDS: LACTATED RINGERS 1,000 ML 100 ML IV CONT (20:28)
[2023-05-25] MEDS: QUEtiapine FUMARATE 25 MG TABLET PO (20:31)
[2023-05-25] MEDS: PRAVASTATIN SODIUM 20 MG TABLET 40 MG PO (20:31)
[2023-05-25] MEDS: ONDANSETRON INJ 4 MG/2 ML VIAL IV PUSH (20:51)
[2023-05-26] VITALS (10 sets, daily range): BP systolic 94–147; BP diastolic 50–87; PULSE 80–118; RESP 16–18; TEMP 35.9–37.8; O2SAT 87–99
[2023-05-26 06:21] LABS: Basophils Percent Auto 0.3 % (0.2-1.2); Eosinophils Absolute Auto 0.2 K/mm3 (0-0.3); Eosinophils Percent Auto 2.1 % (0-4.4); Hematocrit 31.7 % (37.0-47.0); Hemoglobin 9.3 g/dL (12.0-15.0); Immature Granulocyte Absolute 0.03 K/mm3 (0.00-0.031); Immature Granulocyte Percent A 0.3 % (0-0.5); Lymphocytes Absolute Auto 2.31 K/mm3 (0.9-3.2); Lymphocytes Percent Auto 26.6 % (18.3-44.2); Mean Corpuscular HGB Conc 29.3 g/dl (32-36); Mean Corpuscular Hemoglobin 27.3 pg (26-34); Monocytes Absolute Auto 0.9 K/mm3 (0.1-0.6); Monocytes Percent Auto 10.6 % (2.6-8.5); Neutrophils Absolute Auto 5.2 K/mm3 (1.3-6.7); Neutrophils Percent Auto 60.1 % (45.5-73.1); Platelet Count Result 172 k/mm3 (150-375); Red Blood Count 3.41 M/mm3 (4.2-5.4); White Blood Count 8.7 K/mm3 (4.5-10.0)
[2023-05-26 06:38] LABS: Anion Gap 3 mmol/L (4-12); Blood Urea Nitrogen 11 mg/dL (7-17); Carbon Dioxide 27 mmol/L (22-30); Chloride 105 mmol/L (98-107); Estimated CRCL calculation 34 ml/min; Estimated Glomerular Filt Rate > 60; Glucose 90 mg/dL (65-110); Potassium 4.3 mmol/L (3.4-5.0); Sodium 135 mmol/L (137-145)
--- NOTE | 2023-05-26 07:35 | PM.IMPN ---
Progress Note: A&P Assessment and Plan (1) Sepsis: Code(s): A41.9 - Sepsis, unspecified organism Status: Acute Assessment and Plan: Meets SIRS criteria on admission: HR, RR, hypotensive - lactic acid: 1.5 -> 1.0 - 30 mL/kg = 1500. Patient estimated to weight 110 lbs - suspected source: UTI - blood cultures drawn on 05/21: NGTD - UA: Turbid appearance with positive nitrates, 3+ leukocytes, > 100 WBC, 4+ bacteria. - Urine culture pending - CXR: 1. Mild atelectasis in the lower lung zones. 2. Moderate-sized hiatal hernia. -Head CT No intracranial hemorrhage, mass, or acute infarct. Atrophy and chronic white matter changes, as above. -Trend labs Resolved (2) Acute UTI: Code(s): N39.0 - Urinary tract infection, site not specified Status: Acute Assessment and Plan: - UA: Turbid appearance with positive nitrates, 3+ leukocytes, > 100 WBC, 4+ bacteria. - UC obtained on 05/21: klebsiella pneumoniae with resistance to ciprofloxacin and macrobid, intermediate resistance to levofloxacin, sensitive to ceftriaxone. Continue current treatment. - previous micro reviewed 06/08/22: Ecoli, intermediate to Augmentin, resistant to ampicillin, Unasyn, and cefazolin 08/21/21: Ecoli, pansensitive, intermediate to Ancef 11/18/20: No growth 04/10/20: No growth - started on ceftriaxone on 05/21, received a dose of meropenem. Will continue ceftriaxone at this time due to no history of ESBL. (3) Hypoxia: Code(s): R09.02 - Hypoxemia Status: Acute Assessment and Plan: - SpO2: 88% RA, 98% on O2 - Oxygen supplementation started - Wean O2 supplementation for SpO2 > 92% - Suspected cause: unknown. lungs clear to auscultation on exam. - Will need home O2 eval prior to DC - Chest XR: Mild atelectasis in the lower lung zones. - Continue to monitor (4) Benign essential hypertension: Code(s): I10 - Essential (primary) hypertension Status: Acute Assessment and Plan: Chronic. On arrival patient was hypotensive at 84/40. Improved with IV fluids. Currently 130/61. - Restarted home medication - LR 100mls/hr IV - Continue to monitor (5) Dementia: Code(s): F03.90 - Unspecified dementia, unspecified severity, without behavioral disturbance, psychotic disturbance, mood disturbance, and anxiety Status: Acute Assessment and Plan: Patient is from [facility]. AOx1 at baseline. Care coordination has been in contact with patients son Randy who has been trying to get patient into [facility]. Waiting on acceptance. - Continue memantine Time Spent With Patient Time with patient: 25 - 35 minutes Subjective Date/time seen: 05/26/23 07:35 Interval history: 83 year old female with past medical history of dementia (AOx1 baseline), COPD, hypertension, hyperlipidemia, chronic kidney disease stage 3, and depression?presented to the hospital from [facility] for generalized weakness with concern for urinary tract infection. Patient is lying comfortably in bed. She remains on supplemental oxygen at this time, however lungs sounds remain clear. Will need a home O2 evaluation prior to discharge. Has acceptance at [facility]. Likely discharge tomorrow. Review of Systems Review of Systems: All systems reviewed & are unremarkable except as noted in HPI and below Exam Narrative: AF HR 89 RR 16 SpO2 98 BP 94/51 General: frail female in no acute respiratory distress, lying semi recumbent in bed. HEENT: Normocephalic. Atraumatic. Pupils equal round reactive to light. Extraocular movement intact. Sclera clear and anicteric. No facial asymmetry. Chest: Lungs are clear to auscultation bilaterally. No wheezes or crackles. CV: Heart was regular rate and rhythm. S1-S2. No murmurs, gallops, or rubs. Abd: Abdomen was soft. Mild hypogastric tenderness. Nondistended. Positive bowel sounds. No organomegaly or masses. Ext: No clubbing, cyanosis, or edema. 2+ DP pulses bilaterally.
[2023-05-26 08:00] LABS: Anisocytosis 1+; Hypochromasia 1+; Platelet Estimate Adequate (Adequate); Poikilocytosis 1+; Schistocytes None Seen
[2023-05-26] MEDS: FLUTICASONE/SALMETEROL 115-21 MCG INHALER 1 PUFF 2 PUFF INHALATION ×2 (08:42→21:08)
[2023-05-26] MEDS: cefTRIAXone 2 GM/NS 100 ML 2 GM/100 ML BAG IVPB (09:05)
[2023-05-26] MEDS: ENOXAPARIN 40 MG/0.4 ML SYRINGE SUB-Q (09:08)
[2023-05-26] MEDS: VENLAFAXINE HCL XR 75 MG CAP.ER.24H 150 MG PO (09:10)
[2023-05-26] MEDS: FUROSEMIDE 40 MG TABLET PO (09:10)
[2023-05-26] MEDS: SPIRONOLACTONE 25 MG TABLET PO (09:10)
[2023-05-26] MEDS: LOSARTAN POTASSIUM 100 MG TABLET PO (09:11)
[2023-05-26] MEDS: RALOXIFENE HCL (*CHEMO) 60 MG TABLET PO (09:11)
[2023-05-26] MEDS: POTASSIUM CHLORIDE 10 MEQ ER TABLET PO (09:11)
[2023-05-26] MEDS: MEMANTINE 5 MG TABLET PO ×2 (09:11→17:19)
--- NOTE | 2023-05-26 10:52 | PCOTNOTE ---
Attempted to see Patient this A.M. Patient refused to participate. Candise, not now, leave me alone . Patient's cousin present and stated, she has a really bad cough, not feeling well maybe try back in the afternoon, I'll talk to her .
--- NOTE | 2023-05-26 14:24 | PCOTNOTE ---
Patient refused refused to participate this afternoon. Patient stated, not today .
[2023-05-26] MEDS: LACTATED RINGERS 1,000 ML 100 ML IV CONT (15:34)
[2023-05-26] MEDS: ACETAMINOPHEN 325 MG TABLET 650 MG PO (20:43)
[2023-05-26] MEDS: QUEtiapine FUMARATE 25 MG TABLET PO (20:44)
[2023-05-26] MEDS: PRAVASTATIN SODIUM 20 MG TABLET 40 MG PO (20:44)
[2023-05-27] VITALS (7 sets, daily range): BP systolic 97–113; BP diastolic 51–64; PULSE 83–94; RESP 14–97; TEMP 36.2–36.5; O2SAT 90–97
[2023-05-27 06:44] LABS: Anion Gap 3 mmol/L (4-12); Blood Urea Nitrogen 13 mg/dL (7-17); Calcium 8.4 mg/dL (8.4-10.2); Carbon Dioxide 29 mmol/L (22-30); Chloride 106 mmol/L (98-107); Estimated CRCL calculation 26 ml/min; Estimated Glomerular Filt Rate 48; Glucose 92 mg/dL (65-110); Potassium 3.6 mmol/L (3.4-5.0); Sodium 138 mmol/L (137-145)
[2023-05-27 08:01] LABS: Hematocrit 27.8 % (37.0-47.0); Hemoglobin 8.5 g/dL (12.0-15.0); Mean Corpuscular HGB Conc 30.6 g/dl (32-36); Mean Corpuscular Hemoglobin 27.7 pg (26-34); Mean Corpuscular Volume 90.6 fl (80-100); Mean Platelet Volume 9.8 fl (7.4-10.4); Platelet Count Result 160 k/mm3 (150-375); Red Blood Count 3.07 M/mm3 (4.2-5.4); Red Cell Distribution Width 21.3 % (11.5-14.5); White Blood Count 7.1 K/mm3 (4.5-10.0)
[2023-05-27 08:11] LABS: Anion Gap 4 mmol/L (4-12); Blood Urea Nitrogen 13 mg/dL (7-17); Calcium 8.3 mg/dL (8.4-10.2); Carbon Dioxide 30 mmol/L (22-30); Chloride 105 mmol/L (98-107); Estimated CRCL calculation 26 ml/min; Estimated Glomerular Filt Rate 48; Glucose 88 mg/dL (65-110); Potassium 3.6 mmol/L (3.4-5.0); Sodium 139 mmol/L (137-145)
[2023-05-27] MEDS: FLUTICASONE/SALMETEROL 115-21 MCG INHALER 1 PUFF 2 PUFF INHALATION (08:35)
[2023-05-27] MEDS: ENOXAPARIN 40 MG/0.4 ML SYRINGE SUB-Q (09:36)
[2023-05-27] MEDS: cefTRIAXone 2 GM/NS 100 ML 2 GM/100 ML BAG IVPB (09:37)
[2023-05-27] MEDS: LOSARTAN POTASSIUM 100 MG TABLET PO (09:42)
[2023-05-27] MEDS: VENLAFAXINE HCL XR 75 MG CAP.ER.24H 150 MG PO (09:42)
[2023-05-27] MEDS: FUROSEMIDE 40 MG TABLET PO (09:42)
[2023-05-27] MEDS: POTASSIUM CHLORIDE 10 MEQ ER TABLET PO (09:42)
[2023-05-27] MEDS: MEMANTINE 5 MG TABLET PO (09:42)
[2023-05-27] MEDS: SPIRONOLACTONE 25 MG TABLET PO (09:42)
[2023-05-27] MEDS: RALOXIFENE HCL (*CHEMO) 60 MG TABLET PO (09:42)
--- NOTE | 2023-05-27 11:48 | PCOTNOTE ---
Attempted to see pt for occupational therapy. Pt is sleeping upon entry to room but awakens easily. Pt declines therapy at this time, stating no repeatedly when asked if she would participate. Pt educated on benefits of being out of bed and detriments of staying in bed all day and pt still declines. No family present to encourage pt. Will continue to follow.
--- NOTE | 2023-05-27 13:43 | PM.DS ---
DS: Admitting Diagnosis Discharge Date 05/27/2023 Admitting Diagnosis Sepsis Acute UTI Hypoxia Hypertension Dementia DS: Discharge Diagnosis Discharge Diagnosis (1) Sepsis: Code(s): A41.9 - Sepsis, unspecified organism Status: Acute (2) Hypoxia: Code(s): R09.02 - Hypoxemia Status: Acute (3) Acute UTI: Code(s): N39.0 - Urinary tract infection, site not specified Status: Acute (4) Benign essential hypertension: Code(s): I10 - Essential (primary) hypertension Status: Acute (5) Dementia: Code(s): F03.90 - Unspecified dementia, unspecified severity, without behavioral disturbance, psychotic disturbance, mood disturbance, and anxiety Status: Acute DS: Summary Hospital Course Reason for hospitalization: Sepsis Acute UTI Hypoxia Hypertension Dementia Hospital Course: 83 year old female with past medical history of dementia (AOx1 baseline), COPD, hypertension, hyperlipidemia, chronic kidney disease stage 3, and depression?presented to the hospital from [facility] for generalized weakness with concern for urinary tract infection. She was originally meeting SIRs criteria which resolved during admission. UA: Turbid appearance with positive nitrates, 3+ leukocytes, > 100 WBC, 4+ bacteria. UC obtained on 05/21: klebsiella pneumoniae with resistance to ciprofloxacin and macrobid, intermediate resistance to levofloxacin, sensitive to ceftriaxone. She remained on Rocephin during admission and discharged on Augmentin which will be completed on 05/28/23. Patient became hypoxic during admission requiring O2 supplementation. She will be discharged on O2 with plan for the SNF to titrate needed. Patient was discharged to [facility] in a stable condition. She will complete her course of Augmentin on 05/27 and follow up with PCP in one week. Status at Discharge Functional status at discharge: bed bound Time Spent with Patient Time attestation: Total time spent providing and/or coordinating discharge services: Time spent: Greater than 30 minutes Exam Narrative: AF HR 92 RR 16 SpO2 90 BP 98/64 General: frail female in no acute respiratory distress, lying semi recumbent in bed. HEENT: Normocephalic. Atraumatic. Pupils equal round reactive to light. Extraocular movement intact. Sclera clear and anicteric. No facial asymmetry. Chest: Lungs are clear to auscultation bilaterally. No wheezes or crackles. CV: Heart was regular rate and rhythm. S1-S2. No murmurs, gallops, or rubs. Abd: Abdomen was soft. Mild hypogastric tenderness. Nondistended. Positive bowel sounds. No organomegaly or masses. Ext: No clubbing, cyanosis, or edema. 2+ DP pulses bilaterally. Neuro: Patient is alert and oriented x1 (baseline). Less lethargic than yesterday. Speech is clear. Psych: Normal mood and affect. Patient is pleasant and cooperative. Skin: Warm and dry. No rashes noted. DS: Data Data Completed and Pending Completed studies during hospitalization: Chest XR Head CT Labs on day of discharge: Labs from last 24 hours 05/27/23 05/27/23 07:46 05:51 WBC 7.1 RBC 3.07 L Hgb 8.5 L Hct 27.8 L MCV 90.6 MCH 27.7 MCHC 30.6 L RDW 21.3 H Plt Count 160 MPV 9.8 Sodium 139 138 Potassium 3.6 3.6 Chloride 105 106 Carbon Dioxide 30 29 Anion Gap 4 3 L BUN 13 13 Creatinine 1.10 H 1.10 H Estim Creat Clear Calc 26 26 Estimated GFR 48 L 48 L Glucose 88 92 Calcium 8.3 L 8.4 Preliminary micro results at discharge 05/22/23 15:54 Blood Culture - Preliminary Blood 05/22/23 16:00 Blood Culture - Preliminary Blood Discharge Plan Discharge Attending physician on discharge: Harris Payne Discharging Clinician: Tessie Mcleod Anticipated Discharge Date/Time: 05/27/23 13:35 Patient Disposition: SNF Activity: as tolerated Diet: as tolerated Discharge Instructions: You were seen at the hospital for generalized weakness and
--- NOTE | 2023-05-27 14:40 | PCRCNOTE ---
HOME O2 EVAL NOT REQUIRED, PATIENT WILL BE DISCHARGING TO A USP FACILITY. SNF HAVE ABILITY TO PROVIDE PATIENT WITH O2 NEEDS AND TITRATE O2 PRESCRIBED.
== END 2023-05-27 16:35 | DRG 872 ==
LOC: ANHED 12:44 → ANH3MEDSUR 20:35
PROVIDERS: Student in an Organized Health Care Education/Training Program; Admitting Provider Hospitalist; Emergency Provider Student in an Organized Health Care Education/Training Program; PCP Family Medicine; Visit Provider Student in an Organized Health Care Education/Training Program
DX: A41.9 Sepsis, unspecified organism (principal); N39.0 Urinary tract infection, site not specified; B96.1 Klebsiella pneumoniae [K. pneumoniae] as the cause of diseases classified elsewhere; F03.90 Unspecified dementia, unspecified severity, without behavioral disturbance, psychotic disturbance, mood disturbance, and anxiety; R09.02 Hypoxemia; J44.9 Chronic obstructive pulmonary disease, unspecified; I12.9 Hypertensive chronic kidney disease with stage 1 through stage 4 chronic kidney disease, or unspecified chronic kidney disease; N18.30 Chronic kidney disease, stage 3 unspecified; E78.5 Hyperlipidemia, unspecified; F41.8 Other specified anxiety disorders; M81.0 Age-related osteoporosis without current pathological fracture; K44.9 Diaphragmatic hernia without obstruction or gangrene; M15.9 Polyosteoarthritis, unspecified; D69.6 Thrombocytopenia, unspecified; E55.9 Vitamin D deficiency, unspecified; Z90.710 Acquired absence of both cervix and uterus
CPT/HCPCS: 36415; 70450; 71045; 80048; 80053; 81001; 83605; 83735; 84443; 85025; 85027; 87040; 87086; 87186; 93005; 94640; 96361; 96365; 97165; 99285; A9270; J0696; J1650; J2185; J2405; J7030; J7120

== ENCOUNTER 2023-09-04 10:24 | Emergency (ER) | payer MEDICARE, SELFPAY ==
[2023-09-04 10:13] VITALS: BP 40/27; PULSE 97; RESP 30; TEMP 36.4
[2023-09-04 10:30] VITALS: PULSE 81; RESP 14; O2SAT 92
[2023-09-04] MEDS: ALBUTEROL SULFATE NEB 2.5 MG/3 ML INH INHALATION (10:30)
[2023-09-04] MEDS: IPRATROPIUM 0.5 MG/ALBUTEROL SULFATE 2.5 MG AMPUL.NEB 3 ML INHALATION (10:30)
--- NOTE | 2023-09-04 10:31 | ED.SOB ---
HPI - SOB/Dyspnea General Chief Complaint: Shortness of Breath/Dyspnea Stated Complaint: resp distress Time Seen by Provider: 09/04/23 10:28 Source: EMS and old records reviewed Mode of arrival: EMS Limitations: clinical condition History of Present Illness HPI Narrative: Patient presents via EMS with report of shortness of breath. There was concern for pneumonia yesterday reportedly. By report XRay and labs were performed; unknown if patient placed on antibiotics. Patient has a history of COPD and uses O2 via NC PRN at baseline by report. Related Data Home Medications Medication Instructions Recorded Confirmed pravastatin 40 mg tablet 40 mg PO HS 04/10/20 05/22/23 potassium chloride 10 mEq 10 meq PO DAILY 11/18/20 05/22/23 capsule,extended release spironolactone 25 mg tablet 25 mg PO DAILY 11/18/20 05/22/23 furosemide 40 mg tablet 40 mg PO DAILY 09/14/22 05/22/23 memantine 5 mg tablet 5 mg PO BID 09/14/22 05/22/23 acetaminophen 325 mg tablet 325 mg PO Q6H PRN Pain or Fever 12/11/22 05/22/23 quetiapine 25 mg tablet 25 mg PO HS 05/22/23 05/22/23 Allergies Allergy/AdvReac Type Severity Reaction Status Date / Time No Known Allergies Allergy Verified 06/07/22 22:11 [facility] Past Medical History Medical History Age-related osteoporosis with current pathological fracture Anxiety and depression Benign essential hypertension Chronic kidney disease, stage 3 Chronic obstructive pulmonary disease Dementia in other diseases classified elsewhere, unspecified severity, without behavioral disturbance, psychotic disturbance, mood disturbance, and anxiety Hiatal hernia Hypertension secondary to other renal disorders Hypoxemia Major depressive disorder, recurrent, unspecified Mixed hyperlipidemia Personal history of nicotine dependence Primary osteoarthritis involving multiple joints Thrombocytopenia UTI (urinary tract infection) Vitamin D deficiency Surgical History Surgical History History of bilateral breast implants History of hysterectomy Family History Family History Mother Family history of heart disease in male family member before age 55 Social History Social History (Updated 09/07/23 @ 23:32 by Lela Mcallister MD) Social History: Surrogate decision maker: Randy Haed (son) or Mariam Lewis (sister). Code status: Do not resuscitate per PA documentation Smoking packs per day: 1 Smoking cigarettes per day: 20.0 Years smoked: 59 Smoking pack-years: 59.00 Smoking status: Never smoker Alcohol intake: never Substance use: never Substance use type: does not use Additional living arrangements comments: [facility] since 06/12/2020. Additional occupation/education comments: Retired. Additional gender identity comments: Spiritual care concerns: No Exam Narrative: GENERAL: in acute respiratory distress. Pale HEAD: Normocephalic, atraumatic. EYES: Non injected, non icteric ENT: Nares clear, no rhinorrhea or epistaxis. Dry mucous membranes NECK: Supple. CHEST: Tachypneic, in Respiratory distress. Poor air movement with coarse breath sounds. HEART: Regular rate and rhythm. ABDOMEN: Soft, nondistended. EXTREMITIES: No edema. SKIN: Warm, dry, no rash. NEURO: No focal deficits. Not Alert or oriented . Unresponsive. Course Vital Signs Vital signs: Vital Signs Temperature 97.6 F 09/04/23 10:13 Pulse Rate 97 09/04/23 10:13 Respiratory Rate 30 H 09/04/23 10:13 Blood Pressure 40/27 L 09/04/23 10:13 Oxygen Delivery Nasal Cannula 09/04/23 10:13 Oxygen Flow Rate 6 09/04/23 10:13 Temperature 97.6 F 09/04/23 10:13 Pulse Rate 52 L 09/04/23 10:40 Respiratory Rate 14 09/04/23 10:40 Blood Pressure 40/27 L 09/04/23 10:13 Pulse Oximetry 92 0
[2023-09-04 10:40] VITALS: PULSE 52; RESP 14
[2023-09-04] MEDS: methylPREDNISolone SOD SUCC 125 MG VIAL IV PUSH (10:41)
[2023-09-04] MEDS: MAGNESIUM SULF 1 GM/D5W 100 ML 1 GM/100 ML BAG IVPB (10:41)
[2023-09-04] MEDS: SODIUM CHLORIDE 0.9% IV 1,000 ML 999 ML IV CONT (10:45)
--- NOTE | 2023-09-04 10:55 | PC.NURSE ---
monitor reading asystole as this time. no pulse found with palpation. MD notified. checking for cardiac activity with ultrasound. no gag reflux. pupils fixed and dilated. Dr. Mcallister calling time of 1126
--- NOTE | 2023-09-04 11:20 | PC.NURSE ---
called Carla, sibling of patient and notified them to come to the ER.
--- NOTE | 2023-09-04 12:38 | PC.NURSE ---
family for patient was contacted and is currently bedside with patient. care coordination and holden were consulted. also called for hospitality tray for family ordered through dietary
--- NOTE | 2023-09-04 12:50 | PC.NURSE ---
called [facility] at 1245 and spoke to Marlen who stated they will be able to pick patient up as soon as family is ready.
== END 2023-09-04 13:45 | disposition expired ==
PROVIDERS: Emergency Provider Student in an Organized Health Care Education/Training Program; PCP Family Medicine
DX: J96.90 Respiratory failure, unspecified, unspecified whether with hypoxia or hypercapnia (principal); I46.9 Cardiac arrest, cause unspecified; F02.80 Dementia in other diseases classified elsewhere, unspecified severity, without behavioral disturbance, psychotic disturbance, mood disturbance, and anxiety; J44.9 Chronic obstructive pulmonary disease, unspecified; Z99.81 Dependence on supplemental oxygen; I12.9 Hypertensive chronic kidney disease with stage 1 through stage 4 chronic kidney disease, or unspecified chronic kidney disease; N18.30 Chronic kidney disease, stage 3 unspecified; E78.2 Mixed hyperlipidemia; E55.9 Vitamin D deficiency, unspecified; M19.90 Unspecified osteoarthritis, unspecified site; F41.9 Anxiety disorder, unspecified; F33.9 Major depressive disorder, recurrent, unspecified; Z66 Do not resuscitate; Z87.440 Personal history of urinary (tract) infections; M81.0 Age-related osteoporosis without current pathological fracture; Z79.899 Other long term (current) drug therapy
CPT/HCPCS: 94640; 96365; 96375; 99284; J2919; J3475; J7030